=== PATIENT | male | born 1950 | race Caucasian/White ===

== ENCOUNTER → 2024-01-18 11:16 | Outpatient (REF) | payer MEDICARE, BC, SELFPAY | LOC: RAD 11:16 | PROVIDERS: ATTENDING PHYSICIAN Nurse Practitioner Family | DX: R52 Pain, unspecified (principal); L90.5 Scar conditions and fibrosis of skin; M54.40 Lumbago with sciatica, unspecified side; M54.9 Dorsalgia, unspecified | CPT/HCPCS: 76604 ==

== ENCOUNTER → 2024-06-02 08:36 | Outpatient (REF) | payer MEDICARE, BC, SELFPAY | LOC: RAD 08:36 | PROVIDERS: ATTENDING PHYSICIAN Student in an Organized Health Care Education/Training Program; FAMILY PHYSICIAN Family Medicine; REFERRING PHYSICIAN Internal Medicine Gastroenterology | DX: K31.5 Obstruction of duodenum (principal) | CPT/HCPCS: 74250 ==

== ENCOUNTER 2024-06-06 21:44 | Inpatient (IN) | payer MEDICARE, BC, SELFPAY ==
[2024-06-06 18:47] VITALS: BMI 27.2
[2024-06-06 18:50] VITALS: BP 148/86
[2024-06-06 19:00] VITALS: BP 160/92
[2024-06-06 19:04] LABS: % Basophils 0.3 % (0-2); % Immature Granulocytes 0.9 % (0-0.5); % Lymphocytes 6.1 % (20.5-51.1); % Monocytes 8.7 % (1.7-9.3); Absolute Immature Granulocytes 0.1 10^3/uL (0-0.05); Absolute Lymphocytes 0.9 10^3/uL (1.2-3.4); Absolute Monocytes 1.3 10^3/uL (0.1-0.6); Absolute Neutrophils 12.6 10^3/uL (1.4-6.5); Hematocrit 40.4 % (39.0-52.0); Hemoglobin 14.2 g/dL (13.0-18.0); Mean Corp Hgb Conc. 35.1 g/dL (33.0-37.0); Mean Corpuscular Hgb 30.6 pg (27.0-31.0); Mean Corpuscular Volume 87.1 fL (80.0-94.0); Mean Platelet Volume 10.1 fL (7.4-10.4); Nucleated Red Blood Cells % 0 % (-); Platelet Count 211 10^3/uL (130-400); Red Blood Cell Count 4.64 10^6/uL (4.70-6.10); Red Cell Dist. Width 12.6 % (11.5-14.5)
[2024-06-06 19:14] LABS: Lactic Acid 3.4 mmol/L (0.7-2.0)
[2024-06-06 19:22] LABS: Blood Urea Nitrogen 27 mg/dl (9-20); Carbon Dioxide 24 mmol/L (22-30); Chloride 95 mmol/L (98-107); Estimated Creatinine Clearance 71 ml/min; Glucose 315 mg/dl (70-99); Sodium 135 mmol/L (135-145); eGFR > 60.00
[2024-06-06 19:25] LABS: Venous Blood Gas B.E. 0.7 mmol/L (-4 to +4); Venous Blood Gas HCO3 24.3 mmol/L (22-27); Venous Blood Gas O2 Sat % 98.3 %; Venous Blood Gas pCO2 35 mmHg (35-48); Venous Blood Gas pH 7.45 (7.32-7.43); Venous Blood Gas pO2 128 mmHg (30-50)
[2024-06-06] MEDS: NSS 1000 IV ×2 (19:35→23:17)
[2024-06-06] MEDS: TYLENOL 1000 MG PO (19:40)
[2024-06-06] MEDS: ANCEF 10 IV (19:58)
--- NOTE | 2024-06-06 19:58 | ED.GENMED ---
History of Present Illness
General
Chief Complaint: Skin Problem
Time Seen by Provider: 06/06/24 19:09
History of Present Illness
History of Present Illness:
74-year-old male with history of diabetes and CVA presenting to the emergency department for concern of toe infection. Patient arrives with who reports for the past 4 days he has had swelling and redness to the right second digit. Patient
with neuropathy, history of toe infections in the past, no prior amputations. He has been following with podiatry, saw fur dressing supervisor on Sunday, who was not concerned with infection at that time. However yesterday, became increasingly red and swollen,
so primary care doctor who prescribed an oral antibiotic, however they did not fill it until today. Patient denies fever, however does note issues with temperature management since his stroke. Denies chest pain or difficulty breathing. Denies
additional acute medical complaints
Phy Exam
Physical Exam
Physical Exam:
General: Well-appearing, no clinical signs of dehydration, nontoxic and in no acute distress
HEENT: protecting airway
Neck: appears supple
CV: Tachycardic, regular rhythm, no evidence of cyanosis
Resp: No accessory muscle use, no increased work of breathing, lungs clear to auscultation bilaterally
Abd: Soft and non-distended
Extremities: Swelling and redness to the right second digit with ulceration to the plantar aspect with suspected abscess component. Streaking going up the foot and the anterior vazquez
Neuro: alert, no focal neurologic deficit
: deferred
Rectal: deferred
Psych: Normal affect
Skin: Intact
Sepsis
Sepsis Screening
Sepsis Assessment: Sepsis
Sepsis Screen
Sepsis Screen: Sepsis
Date: 06/07/24
Time: 02:59
Course
Orders/Labs/Results
Orders:
Orders
06/06/24 18:48
CT Head W/o Iv Contrast Urgent
Comment:
Reason For Exam: AMS
CR Foot - Right Min 3 Views Urgent
Comment:
Reason For Exam: toe infxn
06/06/24 18:55
Basic Metabolic Panel Urgent
CRP [C-Reactive Protein] Urgent
Complete Blood Count/With Diff Urgent
Lactic Acid Q4H
Comment: CANCEL 2nd LACTIC ACID IF 1st LACTIC ACID IS LESS THAN 2
Blood Culture Routine
NORMA Source: Blood/Venous
Specimen Description:
06/06/24 19:17
Venous Blood Gas Urgent
Blood Culture Urgent
NORMA Source: Blood/Venous
Specimen Description:
06/06/24 19:30
0.9% Sodium Chloride 1000 ml [Nss] 1,000 ml IV BOLUS
06/06/24 19:36
Acetaminophen [Tylenol] 1,000 mg PO NOW STA
06/06/24 19:37
Acetaminophen [Tylenol] 325 mg .ROUTE .STK-MED ONE
06/06/24 19:43
CeFAZolin 2 GRAM [Ancef] 2 grams in 10 ml IV NOW
06/06/24 19:53
Vancomycin [Vancocin] 2,000 mg 0.9% Sodium Chloride 500 ml [Nss] 500 ml IV NOW
06/06/24 20:02
Urinalysis Reflex To Culture Urgent
Date Specimen was Collected: 06/06/24
Time Specimen was Collected: 20:00
06/06/24 21:34
Admit/Transfer Patient As Directed
Co-Sign Provider:
Level of Care: Inpatient admission
Assign to:: Telemetry
Physician / Group: carly
Diagnosis: sepsis
Reason for Telemetry: Other
Other Reason for Telemetry: sepsis
Date to Stop Telemetry: 06/08/24
Time to Stop Telemetry: 11:00
Reason for Hospitalization: sepsis
Expected length of stay greater than two midnights?: Yes
ELOS- Estimated Length of Stay in days: 3
I certify the patient meets the requirements for IP care: Yes
PRN Pain Medication Management As Directed
May give lesser potent ordered pain med per pt: Yes
preference::
Protocol:: Medication orders for pain may be administered in a
manner that supports deferring to patient preference
when the pt is:
- Requesting an ordered lesser potent pain medication.
Least to most potent pain medications are defined
as: acetaminophen < NSAID < tramadol < opioids
(morphine, oxycodone, hydromorphone).
- Requesting a lesser dose of the same medication IF
ORDERED.
- Requesting a less intrusive route of administration
if both routes are prescribed by the provider (PO <
IV).
06/06/24 21:35
Code Status As Directed
Resuscitation Status: Full Code
06/06/24 21:39
Insulin Glargine Lantus [Lantus] 10 units Subcutaneous Insulin Syringe [Syringe-Insulin] 0 unit SC ONCE
06/06/24 22:19
0.9% Sodium Chloride 1000 ml [Nss] 1,000 ml IV 80 mls/hr
Acetaminophen [Tylenol/Feverall] 650 mg RECTAL Q4HPRN PRN
Acetaminophen [Tylenol] 650 mg PO Q4HPRN PRN
Dextrose 50%-Water [Dextrose 50% Syringe] 12.5 grams IV [id number] PRN
Glucagon [GlucaGen] 1 mg IM PRN PRN
VANCOMYCIN Pharmacy to Dose [VANCOCIN Pharmacy to Dose] 1 each Pharmacy To Prepare [Call Pharmacy To Prepare] 0 ml IV PER PROTOCOL
06/06/24 22:19
Activity As Directed
Activity Level: As Tolerated
Bedside Glucose Monitoring As Directed
Frequency: AC&HS
Additional Instructions:: Change to q6h if pt on TPN, tube feeding or not eating
Bedside Glucose Monitoring As Directed
Frequency: AC&HS
Additional Instructions:: Change to q6h if pt on TPN, tube feeding or not eating
Intake/ Output As Directed
Frequency: Per unit guidelines
Vital Signs As Directed
Frequency: Per unit guidelines
DX Deep Vein Thrombosis Video Routine
06/06/24 23:00
Gabapentin [Neurontin] 600 mg PO TID
06/06/24 23:29
Lactic Acid Q4H
Comment: CANCEL 2nd LACTIC ACID IF 1st LACTIC ACID IS LESS THAN 2
06/07/24 02:00
Piperacillin/Tazo 3.375 Gram [Zosyn] 3.375 gram in 50 ml IV Q6H
06/07/24 03:00
Lactic Acid Q4H
Comment: repeat q4 hours x 4 or until less than 2 mmol/L
06/07/24 Breakfast
2000 calorie (17 carb) Diabetic
At Your Request: Limited Participation
Complete Blood Count/No Diff IN AM
Glycohemoglobin (HgbA1c) IN AM
06/07/24 07:00
Lactic Acid Q4H
Comment: repeat q4 hours x 4 or until less than 2 mmol/L
06/07/24 07:30
Insulin Aspart Corrective Mod [Novolog Flexpen-Moderate Resistance] See Protocol SC AC
06/07/24 08:00
Amlodipine [Norvasc] 2.5 mg PO DAILY
Atorvastatin [Lipitor] 80 mg PO DAILY
Ezetimibe [Zetia] 10 mg PO DAILY
Lisinopril [Zestril] 20 mg PO BID
Pantoprazole [Protonix] 40 mg PO BID
icosapent ethyl [Vascepa] 2 grams PO BID
06/07/24 18:00
Enoxaparin Sodium [Lovenox] 40 mg SC QPM
06/07/24 22:00
Insulin Glargine Lantus [Lantus] 10 units Subcutaneous Insulin Syringe [Syringe-Insulin] 0 unit SC HS
06/08/24 06:00
Complete Blood Count/No Diff IN AM
06/08/24 11:00
DC Protocol for Telemetry ONCE
06/09/24 06:00
Complete Blood Count/No Diff IN AM
06/10/24 06:00
Complete Blood Count/No Diff IN AM
06/11/24 06:00
Complete Blood Count/No Diff IN AM
Abnormal Lab Results
06/06/24 06/06/24 06/06/24
18:55 19:17 20:02
WBC 15.0 H 10^3/uL
(4.8-10.8)
RBC 4.64 L 10^6/uL
(4.70-6.10)
Abs Immat Gran (auto) 0.1 H 10^3/uL
(0-0.05)
Absolute Neuts (auto) 12.6 H 10^3/uL
(1.4-6.5)
Absolute Lymphs (auto) 0.9 L 10^3/uL
(1.2-3.4)
Absolute Monos (auto) 1.3 H 10^3/uL
(0.1-0.6)
Immature Gran % 0.9 H %
(0-0.5)
Neutrophils % 84.0 H %
(42.2-75.2)
Lymphocytes % 6.1 L %
(20.5-51.1)
VBG pH 7.45 H
(7.32-7.43)
VBG pO2 128 H mmHg
(30-50)
Chloride 95 L mmol/L
(98-107)
BUN 27 H mg/dl
(9-20)
Glucose 315 H mg/dl
(70-99)
Lactic Acid 3.4 H mmol/L
(0.7-2.0)
C-Reactive Protein 176.50 H mg/L
(0.0-10.00)
Urine Ketones 1+ A
(Negative)
Urine Glucose 3+ A
(Negative)
06/06/24 18:55
06/06/24 18:55
Vital Signs
Initial and Last Documented VS:
Initial Vital Signs
Temp Pulse Resp Pulse Ox
98.4 F 126 25 97
06/06/24 18:41 06/06/24 18:41 06/06/24 18:41 06/06/24 18:41
Last Documented Vital Signs
Temp Pulse Resp BP Pulse Ox
100.1 F 101 21 139/98 96
06/06/24 23:38 06/06/24 23:38 06/06/24 23:38 06/06/24 23:38 06/06/24 23:38
MDM/Problems Addressed
MDM/Problems Addressed:
74-year-old male with history of diabetes and CVA presenting for concern of right toe infection. Vital signs on arrival significant for fever and tachycardia.
On exam, patient is in no acute distress, however vital signs are concerning for SIRS with suspected source of infection right second digit. For this reason, concern for sepsis. Plan for laboratory analysis including lactic acid, blood cultures.
Will obtain x-ray imaging of the foot.
20:00 - Patient with leukocytosis and lactic acid of 3.2. Blood pressure remained stable and lactate is less than 4, without concern for severe sepsis or septic shock. Will continue fluids as clinically indicated. Broad-spectrum antibiotics
ordered.
20:50 - X-ray of the foot without obvious osteomyelitis. No gas collection. is concerned that patient was slightly slower to respond than usual. No focal neurologic deficits on exam. Patient did have a CT brain, within normal limits. Plan
for admission for continued antibiotics and podiatry consultation, likely surgical management.
*Critical Care Note
Total Time (30-74mins, 75-104mins- exclusive of procedures): Not Applicable
ED Attending Note
-
Portions of this chart may have been created with voice recognition software.� Occasional wrong word or��sound alike� substitutions may have occurred due to the inherent limitations of voice recognition software.
Discharge Plan
Departure
Patient Disposition: Admit
Date of Disposition: 06/06/24
Time of Disposition: 20:57
Presentation/result/management discussed w/ accepting MD/DO: Hospitalist
Discharge Problem:
Diabetic ulcer of toe, Sepsis
Interventions
Interventions:
*Risk Screen - Suicide Last Done: 06/06/24 22:47
*General Assessment Last Done: 06/06/24 18:49
*Neglect/Abuse Screening Last Done: 06/06/24 18:49
ED- Fall Risk Assessment Last Done: 06/06/24 22:02
*ED COVID-19 Vaccine History Last Done: 06/06/24 18:49
*Nursing Disposition Last Done: 06/06/24 22:02
ED-Skin Assessment Last Done: 06/06/24 19:30
Discharge Date and Time
Discharge Date/Time: 06/06/24 22:16
[2024-06-06 20:01] VITALS: BP 164/95
[2024-06-06] MEDS: VANCOCIN 540 MG IV (20:10)
[2024-06-06 20:14] LABS: Urine Albumin Negative (Neg - Trace); Urine Bilirubin Negative (Negative); Urine Character Clear (Clear); Urine Color Yellow; Urine Glucose 3+ (Negative); Urine Ketone 1+ (Negative); Urine Leukocyte Negative (Negative); Urine Nitrite Negative (Negative); Urine Occult Blood Negative (Negative); Urine Specific Gravity 1.015 (<1.030); Urine Urobilinogen Negative (Neg - 1+)
--- NOTE | 2024-06-06 20:59 | HPS.HSE ---
Addendum entered and electronically signed by French Jimenez DO 06/06/24 21:52:
Patient seen and examined independently. Agree with findings and plan as set forth by SHEEBA Gandara.
Patient is a 74y M with PMH significant for DM-II, hypertension and prior CVA who presents c/o pain, swelling and redness in the R 2nd toe. Patient states that symptoms have been progressive over the past 3 days or so. Recently had similar
infection / process in the R 3rd toe which was treated by his Forgeman Helper in [place] (he cannot recall the name). Patient has Charcot foot and hammertoe deformities. He feels fatigued but no subjective fevers, chills, nausea. He was seen by
Podiatry and started on Levaquin (first dose was today).
Ass:
Diabetic Foot Infection R 2nd Toe
Sepsis secondary to the above
DM-II
Charcot Foot
Benign Hypertension
GERD
Chronic Posterior Torso Fluoroscopy Burn Injury(?)
Plan:
Admit for further evaluation and treatment.
IV abx with Vanco / Zosyn for now.
Podiatry evaluation.
X-rays in the ED today show no evidence of bony involvement. Severe arthropathy c/w Charcot foot.
? MRI for further evaluation if no prompt response to abx.
Supportive care.
Hold PO DM medications and cover with basal : bolus insulin regimen / SSI for now.
Continue other home medications.
Original Note:
Family Physician
-
Family Physician: Evelyn Briones
Chief Complaint
-
infection
History of Present Illness
74-year-old male with history of diabetes , CVA, type 2 DM presented to us with right second toe infection. its been red and swollen for past three days. progressively got worse. more swelling on his calf and redness to his knees. started on
Levaquin today morning.did not check the fever at home. denied DONAHUE ,dizzy or syncopal episode. denied chest pain, sob. denied abdominal pain,n,v,d. denied dysuria or hematuria.patient was evaluated by Podiatry on Sunday.
upon arrival he was sepsis. received iv vanco and Zosyn. admitting for further management.
Medical History
Past Medical History
Past Medical History: Reports Other
Additional Past Medical History:
HTN
BPH
HTn
DM
HLD
GERD
CVA
Past Surgical History: Reports Other
Additional Past Surgical History:
appendectomy
shoulder surgery
sinus surgery
tumor resection
Social History
Tobacco: Non-smoker
Alcohol: None
Drug: None
Personal:
Living: With Family
Family History
Family History: Not pertinent
Allergies / Home Medications
Allergies reflects when Allergies were last updated in [employer].
Home Medications with original date entered in [employer]
Allergy/Medication List:
Allergies
Allergy/AdvReac Type Severity Reaction Status Date / Time
clindamycin Allergy Severe Rash Verified 06/06/24 19:42
tamsulosin Allergy Unknown Unknown Unverified 07/28/19 07:49
ibuprofen Allergy Unknown Verified 07/28/19 07:49
[From DayQuil Sinus
Pressure/Pain]
perfume Allergy Unknown Verified 07/28/19 07:29
pseudoephedrine Allergy Unknown Verified 07/28/19 07:49
[From DayQuil Sinus
Pressure/Pain]
Home Medications
amlodipine 2.5 mg tablet 2.5 mg PO DAILY 06/06/24
aspirin 325 mg PO DAILY 06/06/24
pnersge-xmdxudhbvuskj-xhfuybkk 250 mg-250 mg-65 mg tablet (Excedrin Migraine) 1 tab PO Q6 PRN headaches 06/06/24
atorvastatin 80 mg tablet 80 mg PO DAILY 06/06/24
benazepril 20 mg tablet 20 mg PO BID 06/06/24
ezetimibe 10 mg tablet 10 mg PO DAILY 06/06/24
gabapentin 600 mg tablet 600 mg PO TID 06/06/24
glimepiride 2 mg tablet 2 mg PO DAILY 06/06/24
hydrochlorothiazide 25 mg tablet 25 mg PO DAILY 06/06/24
hydrocodone-acetaminophen 1 tab PO Q8 PRN pain 06/06/24
icosapent ethyl 1 gram capsule (Vascepa) 2 g PO BID 06/06/24
levofloxacin 500 mg tablet 500 mg PO DAILY 06/06/24
metformin 500 mg tablet 500 mg PO BID 06/06/24
pantoprazole 40 mg tablet,delayed release 40 mg PO BID 06/06/24
Review of Systems
-
Constitutional: Reports No Symptoms
EENT: Reports No Symptoms
Respiratory: Reports No Symptoms
Cardiac: Reports No Symptoms
Abdomen/GI: Reports No Symptoms
: Reports No Symptoms
Musculoskeletal: Reports No Symptoms
Skin: Reports Other (second toe infection)
Neurological: Reports No Symptoms
Endocrine: Reports No Symptoms
Hematologic/Lymphatic: Reports No Symptoms
Psych: Reports No Symptoms
Physical Exam
Vital Signs
Vital Signs
Temp Pulse Resp BP Pulse Ox
102.9 F H 108 27 164/95 97
06/06/24 19:00 06/06/24 20:15 06/06/24 20:15 06/06/24 20:01 06/06/24 20:15
Physical Exam
General: Well Developed, Well Nourished and No Apparent Distress
HEENT: NormoCephalic, Moist mucous membranes and Atraumatic
Respiratory: Clear
Cardiac: S1/S2 and Regular Rhythm; No Murmur or Rub
GI: Soft, Non Tender, Non Distended and Normal Bowel Sounds; No Organomegaly
Rectal: Deferred by Provider
Musculoskeletal: No Clubbing, No Cyanosis and No Edema
Skin: Rash and Other (second toe red, swollen, LE red and swollen)
Neuro: AO x 3 and Nonfocal/grossly intact
Psych: Calm
Laboratory Results
-
06/06/24 18:55
06/06/24 18:55
Laboratory Results
Lactic Acid 3.4 mmol/L (0.7-2.0) H 06/06/24 18:55
Total Bilirubin Cancelled 06/06/24 18:55
AST Cancelled 06/06/24 18:55
ALT Cancelled 06/06/24 18:55
Alkaline Phosphatase Cancelled 06/06/24 18:55
Data Reviewed
-
Diagnostic Radiology: Report Reviewed by me
CT Scan: Report Reviewed by me
Lab Data: Labs Reviewed by me
Impression/Plan
-
#right 2nd toe infection
-severe sepsis wbc 15.0,CRP 176.50,tachy, temp of 102.9,elevated lactic
-foot x ray with No osseous destructive changes to confirm acute osteomyelitis.Severe osteoarthrosis of the midfoot with greatest involvement of the naviculocuneiform and second through fourth tarsometatarsal joints, again most suspicious for a
neuropathic arthrosis. No acute fracture or dislocation. Soft tissue swelling about the foot, nonspecific.
-blood culture sent from ER
-Zosyn and vanco in ER
-Tylenol prn for fever
-ctm
# Essential hypertension
-Blood pressure stable
-Norvasc, Benazepril continue with hold parameters
# Hyperlipidemia
-Statin, Zetia
-Possible continued
# GERD
-PPI continued
#Type 2 diabetes with hyperglycemia/neuropathy
-Gabapentin continued
-Holding glimepiride and metformin
-Lantus 10 units at bedtime
-sliding scale
# DVT prophylaxis
-Lovenox subcu
# CODE STATUS
-Full code
[2024-06-06 21:00] VITALS: BP 141/77
[2024-06-06 22:00] VITALS: BP 132/76
[2024-06-06 22:52] LABS: Glucose - Point of Care 231 mg/dl (70-99)
[2024-06-06] MEDS: LANTUS 0.1 UNITS SC (22:53)
[2024-06-06] MEDS: NEURONTIN 600 MG PO (23:17)
[2024-06-06 23:38] VITALS: BP 139/98; BMI 27.2
[2024-06-07] VITALS (7 sets, daily range): BP systolic 103–170; BP diastolic 63–96
--- NOTE | 2024-06-07 00:55 | PTCARENOTE ---
Received patient from ED via stretcher with spouse at bedside. Patient admitted for sepsis. Telemetry order> SR-ST on monitor, T100.1, HR101, RR20, BP139/98, pox 96% room air. BGS 231- Lantus 10 units administered.
Skin assessment> B/L Charcot. Rt foot- second toe, red and warm to touch. Second toe DFU. Scabbed w/ small red wound bed to the tip of toe, above w/ an intact blister. Third toe-distal w/ small intact scab. Both cleansed w/ NSS, covered w/ bandage.
Bilateral dorsal pedal pulse weak to palpate, confirmed w/ doppler. Protective foams applied to heels.
PMH and medications confirmed by this RN and patient. Plan of care discussed. Patient oriented to room. Call mckeon within reach.
[2024-06-07] MEDS: ZOSYN 50 IV ×4 (01:47→20:45)
[2024-06-07] MEDS: TYLENOL 650 MG PO ×4 (03:15→20:42)
[2024-06-07 03:51] LABS: Hematocrit 37.5 % (39.0-52.0); Hemoglobin 13.1 g/dL (13.0-18.0); Mean Corp Hgb Conc. 34.9 g/dL (33.0-37.0); Mean Corpuscular Hgb 30.8 pg (27.0-31.0); Mean Platelet Volume 10.2 fL (7.4-10.4); Platelet Count 183 10^3/uL (130-400); Red Blood Cell Count 4.26 10^6/uL (4.70-6.10); Red Cell Dist. Width 12.8 % (11.5-14.5); White Blood Cell Count 14.9 10^3/uL (4.8-10.8)
[2024-06-07 04:06] LABS: Lactic Acid 2.6 mmol/L (0.7-2.0)
[2024-06-07 04:16] LABS: Blood Urea Nitrogen 23 mg/dl (9-20); Calcium 9.1 mg/dl (8.4-10.2); Carbon Dioxide 25 mmol/L (22-30); Chloride 100 mmol/L (98-107); Estimated Creatinine Clearance 71 ml/min; Glucose 198 mg/dl (70-99); Potassium 4.1 mmol/L (3.5-5.1); Sodium 142 mmol/L (135-145); eGFR > 60.00
[2024-06-07 07:37] LABS: Lactic Acid 1.9 mmol/L (0.7-2.0)
[2024-06-07 07:42] LABS: Vancomycin Trough 9.5 ug/ml (5-20)
--- NOTE | 2024-06-07 07:56 | PHA.VAN.IN ---
Assessment
- Assessment
Renal Function: Appears similar to baseline
Maximum Temperature: 101.8 (06/07/24 0553)
Concomitant Antimicrobials: pip/tazo
AUC Dosing Plan
- Dosing Variables
Dosing Weight (kg): 81
Dosing CrCl (ml/min): 71
Vd coefficient (L/kg): 0.7
- Empiric Dosing
Initial / Loading Dose: 2000 mg 06/06 ~1999
Maintenance Regimen: 750 mg q12h - to start this AM
Estimated AUC (mcg*h/mL): 431
Estimated Peak (mcg*h/mL): 24.8
Estimated Trough (mcg/ml): 12.4
Estimated Half Life (H): 10.8
random level ordered for this AM was 9.5 ~ 11 hours after the 2000 mg LD
- Monitoring
No levels ordered at this time: consider levels after Sun tanner dose ( 4th Maint)
Pharmacokinetics Vancomycin I
- -
Patient Age: 74
Patient Sex: Male
Vancomycin Day #: 1
Indication: Skin And Soft Tissue
Requesting Provider: Tony
Pertinent Antimicrobial Allergies:
clindamycin, ibuprofen,tamsulosin, pseudoephedrine
Height / Weight:
Height 5 ft 8 in
Actual Weight 81.102 kg
Pertinent Past Medical History: DM II
- Vital Signs / Lab Results
Temp Pulse Resp BP Pulse Ox
97.4 F 109 19 161/94 96
06/07/24 07:00 06/07/24 03:18 06/07/24 03:18 06/07/24 03:18 06/07/24 03:18
Lab Results - Hematology
06/06/24 06/07/24
18:55 03:42
WBC 15.0 H 14.9 H
Lab Results - Chemistry
06/06/24 06/07/24
18:55 03:42
BUN 27 H 23 H
Creatinine 0.9 0.9
Estimated Creat Clear 71 71
Albumin Cancelled
06/06/24 06/06/24 06/07/24
18:55 23:29 03:42
Lactic Acid 3.4 H 2.0 2.6 H
06/07/24
07:07
Lactic Acid 1.9
Lab Results - Urine
06/06/24
20:02
Urine Nitrite (Reflex) Negative
Leukocyte Esterase Rfl Negative
[2024-06-07 08:11] LABS: Glucose - Point of Care 175 mg/dl (70-99)
[2024-06-07] MEDS: NEURONTIN 600 MG PO ×3 (08:37→22:33)
[2024-06-07] MEDS: LIPITOR 80 MG PO (08:38)
[2024-06-07] MEDS: ZESTRIL 20 MG PO ×2 (08:38→20:45)
[2024-06-07] MEDS: NOVOLOG FLEXPEN-MODERATE RESISTANCE 1 UNITS SC (08:38)
[2024-06-07] MEDS: NORVASC 2.5 MG PO (08:38)
[2024-06-07] MEDS: ZETIA 10 MG PO (08:39)
[2024-06-07] MEDS: PROTONIX 40 MG PO ×2 (08:39→20:45)
--- NOTE | 2024-06-07 08:45 | W.PN.HOSP.TC ---
Addendum entered and electronically signed by Jose Dowd MD 06/07/24 11:26:
arrived, told nursing pt was in pain (he denied pain to me earlier) and requests a medication for pain. Will order
Original Note:
Today's Communication/Plan
-
Podiatry consult
continue IV abx
MRI
Assessment / Plan
Assessment / Plan
#right 2nd toe infection
-severe sepsis wbc 15.0-->14.9,
CRP 176.50,tachy, temp of 102.9,elevated lactic 2.0-->2.6-->1.9
-foot x ray with No osseous destructive changes to confirm acute osteomyelitis.Severe osteoarthrosis of the midfoot with greatest involvement of the naviculocuneiform and second through fourth tarsometatarsal joints, again most suspicious for a
neuropathic arthrosis. No acute fracture or dislocation. Soft tissue swelling about the foot, nonspecific.
-blood culture sent from ER
-Zosyn and vanco in ER
-Tylenol prn for fever
-Podiatry consult pending (Dr. Araiza, nonsurgical)
will order MRI of foot
# Essential hypertension
-Blood pressure stable
-Norvasc, Benazepril continue with hold parameters
# Hyperlipidemia
-Statin, Zetia
-Possible continued
# GERD
-PPI continued
#Type 2 diabetes (NIDDM for 10 yrs, as per pt)with hyperglycemia/neuropathy
-Gabapentin continued
-Holding glimepiride and metformin
-Lantus 10 units at bedtime
-sliding scale
a1c pending
# DVT prophylaxis
-Lovenox subcu
# CODE STATUS
-Full code
Anticipated Discharge: > 48 hours
Subjective/Interval History
-
Date of Service: June 07, 2024
Awake, alert
Objective Data
-
Labs:
Laboratory Results
06/07/24
03:42
WBC 14.9 H
Hgb 13.1
Hct 37.5 L
Plt Count 183
Sodium 142
Potassium 4.1
Chloride 100
Carbon Dioxide 25
BUN 23 H
Creatinine 0.9
Glucose 198 H
Calcium 9.1
Vital Signs:
Vital Signs
Temp Pulse Resp BP Pulse Ox
101.2 F H 115 18 170/96 95
06/07/24 07:45 06/07/24 08:38 06/07/24 07:45 06/07/24 08:38 06/07/24 07:45
I&O
06/06/24 06/07/24 06/08/24
06:59 06:59 06:59
Intake Total 640 / 640
Output Total 400 / 400
Balance 240 / 240
Review of Systems
-
History Source: Patient and Coordinated Provider
Constitutional: Reports Fever (97.4-102.9)
EENT: Reports No Symptoms Reported
Respiratory: Reports No Symptoms
Cardiac: Reports No Symptoms
Abdomen/GI: Reports No Symptoms
Genitourinary: Reports No Symptoms
Musculoskeletal: Reports Other (charcot foot, hypesthesia for years)
Neuro: Reports No Symptoms
Physical Exam
-
General: Well Developed, Well Nourished and No Apparent Distress
HEENT: Normocephalic, Atraumatic and Moist Mucous Membranes
Respiratory: Clear to Auscultation; Negative Wheezes, Rales or Rhonchi
Cardiac: Regular Rhythm and S1/S2
GI: Soft, Nontender and Nondistended
Genito-urinary: No Costovertebral Tender
Musculoskeletal: Other (rt foot 2nd toe with chronic ischemic changes, odiferous)
Neuro: Awake, Alert, Oriented and Other (mild pill rolling tremor, mild cogwheel changes)
[2024-06-07] MEDS: VANCOCIN 150 IV ×2 (08:50→17:37)
[2024-06-07 10:01] LABS: Glycohemoglobin (HgbA1c) 8.2 % (4.0-5.6)
[2024-06-07 11:32] LABS: Glucose - Point of Care 302 mg/dl (70-99)
[2024-06-07] MEDS: NOVOLOG FLEXPEN-MODERATE RESISTANCE 7 UNITS SC (11:50)
--- NOTE | 2024-06-07 12:50 | CM ---
CM met with pt's at bedside. Pt unavailable.
Prior to admission, pt ind with ambulation using no AD and ADL's + Mobile Product Manager.
Confirmed PCP is Evelyn Briones and pharmacy is [facility] in [place].
Pt has no HC or SNF history. Per pt will decline if recc'd.
Anticipate dc home no needs VS home with VN if pt agreeable.
CM/SW to follow and assist.
[2024-06-07] MEDS: PERCOCET 5/325 1 TABLET PO ×2 (13:12→20:43)
[2024-06-07] MEDS: NSS 1000 IV (15:18)
[2024-06-07 17:01] LABS: Glucose - Point of Care 228 mg/dl (70-99)
[2024-06-07] MEDS: LOVENOX 40 MG SC (17:36)
[2024-06-07] MEDS: NOVOLOG FLEXPEN-MODERATE RESISTANCE 3 UNITS SC (17:36)
[2024-06-07 22:17] LABS: Glucose - Point of Care 218 mg/dl (70-99)
[2024-06-07] MEDS: LANTUS 0.1 UNITS SC (22:30)
[2024-06-08] VITALS (7 sets, daily range): BP systolic 124–159; BP diastolic 67–96
[2024-06-08] MEDS: ZOSYN 50 IV ×4 (01:20→19:59)
[2024-06-08] MEDS: TYLENOL 650 MG PO ×3 (02:33→22:05)
--- NOTE | 2024-06-08 03:15 | PTCARENOTE ---
This RN noticed scant hematuria while patient urinating. Patient denies dysuria. H/H and Plt stable. Lovenox ordered. Patient voided 275ml urine and bladder scanned 245ml. Patient continues to be febrile w/ rigors. Tylenol administered x2 for
temperature. NSR on monitor, HR 90s- 100s, BP fluctuates. Percocet administered earlier in shift for 7/10 whole body aches/pains. House WINDER OPERATOR made aware. No new orders at this time.
[2024-06-08 04:58] LABS: Glucose - Point of Care 287 mg/dl (70-99)
[2024-06-08] MEDS: NSS 1000 IV ×2 (05:13→20:01)
[2024-06-08] MEDS: VANCOCIN 150 IV ×2 (05:13→17:28)
--- NOTE | 2024-06-08 07:06 | W.PN.UPDATE ---
Update Note
Progress Note Update
RN notifed NEUROLOGY TECHNICIAN patient had scant amount of blood in urine. patient is on Lovenox daily, CBC in AM. will check UA. stable vs.
[2024-06-08 07:29] LABS: Glucose - Point of Care 192 mg/dl (70-99)
[2024-06-08 07:37] LABS: Lactic Acid 1.1 mmol/L (0.7-2.0)
[2024-06-08 07:55] LABS: Urine Albumin 1+ (Neg - Trace); Urine Bilirubin Negative (Negative); Urine Character Clear (Clear); Urine Color Yellow; Urine Glucose 3+ (Negative); Urine Ketone 1+ (Negative); Urine Leukocyte Negative (Negative); Urine Nitrite Negative (Negative); Urine Occult Blood 1+ (Negative); Urine Urobilinogen Negative (Neg - 1+)
[2024-06-08] MEDS: NOVOLOG FLEXPEN-MODERATE RESISTANCE 1 UNITS SC (07:58)
[2024-06-08] MEDS: PROTONIX 40 MG PO ×2 (07:58→19:59)
[2024-06-08] MEDS: LIPITOR 80 MG PO (07:58)
[2024-06-08] MEDS: NEURONTIN 600 MG PO ×3 (07:59→22:05)
[2024-06-08] MEDS: ZETIA 10 MG PO (07:59)
[2024-06-08] MEDS: NORVASC 2.5 MG PO (08:00)
[2024-06-08] MEDS: ZESTRIL 20 MG PO ×2 (08:00→19:59)
[2024-06-08 08:10] LABS: Erythrocyte Sed Rate 54 mm/hour (0-20)
[2024-06-08 08:18] LABS: Urine Bacteria Few (Negative); Urine White Cell 0-2 /HPF (0-5)
[2024-06-08 08:33] LABS: % Basophils 0.3 % (0-2); % Eosinophils 0.2 % (0-6); % Immature Granulocytes 0.7 % (0-0.5); % Lymphocytes 11.1 % (20.5-51.1); % Monocytes 8.7 % (1.7-9.3); Absolute Lymphocytes 0.7 10^3/uL (1.2-3.4); Absolute Monocytes 0.5 10^3/uL (0.1-0.6); Absolute Neutrophils 4.6 10^3/uL (1.4-6.5); Hematocrit 33.1 % (39.0-52.0); Hemoglobin 11.6 g/dL (13.0-18.0); Mean Corpuscular Hgb 30.8 pg (27.0-31.0); Mean Corpuscular Volume 87.8 fL (80.0-94.0); Mean Platelet Volume 10.3 fL (7.4-10.4); Nucleated Red Blood Cells % 0 % (-); Platelet Count 144 10^3/uL (130-400); Red Blood Cell Count 3.77 10^6/uL (4.70-6.10); Red Cell Dist. Width 12.8 % (11.5-14.5); White Blood Cell Count 5.9 10^3/uL (4.8-10.8)
[2024-06-08 09:02] LABS: Blood Urea Nitrogen 25 mg/dl (9-20); Calcium 8.9 mg/dl (8.4-10.2); Carbon Dioxide 26 mmol/L (22-30); Chloride 99 mmol/L (98-107); Estimated Creatinine Clearance 64 ml/min; Glucose 185 mg/dl (70-99); Potassium 3.8 mmol/L (3.5-5.1); Sodium 136 mmol/L (135-145); eGFR > 60.00
--- NOTE | 2024-06-08 09:15 | W.PN.HOSP.TC ---
Addendum entered and electronically signed by Jose Dowd MD 06/08/24 09:38:
ESR [id number]
Original Note:
Today's Communication/Plan
-
await input from Podiatry
Assessment / Plan
Assessment / Plan
#right 2nd toe infection
-severe sepsis wbc 15.0-->14.9-->5.9,
CRP 176.50,tachy, elevated lactic 2.0-->2.6-->1.9-->1.1
-foot x ray with No osseous destructive changes to confirm acute osteomyelitis.Severe osteoarthrosis of the midfoot with greatest involvement of the naviculocuneiform and second through fourth tarsometatarsal joints, again most suspicious for a
neuropathic arthrosis. No acute fracture or dislocation. Soft tissue swelling about the foot, nonspecific.
-blood culture sent from ER
-remains on Zosyn and vanco
-Tylenol prn for fever
-Podiatry consult pending (changed from Dr. Araiza, nonsurgical to Dr. Estrella, due to need to make decision on surgical intervention)
MRI of foot: 1. Bone marrow edema in the second distal phalanx for which differential considerations include reactive edema versus the early changes of osteomyelitis given the proximity to the soft tissue wound at the distal aspect of the second
toe. No evidence for T1 hypointense marrow replacement.
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
# Essential hypertension
-Blood pressure stable
-Norvasc, Benazepril continue with hold parameters
# Hyperlipidemia
-Statin, Zetia
-Possible continued
# GERD
-PPI continued
#Type 2 diabetes (NIDDM for 10 yrs, as per pt)with hyperglycemia/neuropathy
based on a1c, suboptimal control
-Gabapentin continued
-Holding glimepiride and metformin
-Lantus 10 units at bedtime
-sliding scale
a1c 8.2%
# DVT prophylaxis
-Lovenox subcu
# CODE STATUS
-Full code
Anticipated Discharge: > 48 hours
Subjective/Interval History
-
Date of Service: June 08, 2024
Even though has significant neuropathy, still with pain in toe area
Objective Data
-
Labs:
Laboratory Results
06/08/24
07:08
WBC 5.9
Hgb 11.6 L
Hct 33.1 L
Plt Count 144 D
Sodium 136
Potassium 3.8
Chloride 99
Carbon Dioxide 26
BUN 25 H
Creatinine 1.0
Glucose 185 H
Calcium 8.9
Vital Signs:
Vital Signs
Temp Pulse Resp BP Pulse Ox
98.5 F 90 16 144/86 97
06/08/24 07:30 06/08/24 08:00 06/08/24 07:30 06/08/24 08:00 06/08/24 07:30
I&O
06/07/24 06/08/24 06/09/24
06:59 06:59 06:59
Intake Total 640 / 640 3840 / 3840
Output Total 400 / 400 775 / 775
Balance 240 / 240 3065 / 3065
Review of Systems
-
History Source: Patient and Coordinated Provider
Constitutional: Reports Fever (98.4-->100.7)
EENT: Reports No Symptoms Reported
Respiratory: Reports No Symptoms
Cardiac: Reports No Symptoms
Abdomen/GI: Reports No Symptoms
Genitourinary: Reports No Symptoms
Musculoskeletal: Reports Other (charcot foot, hypesthesia for years)
Neuro: Reports No Symptoms
Physical Exam
-
General: Well Developed, Well Nourished and No Apparent Distress
HEENT: Normocephalic, Atraumatic and Moist Mucous Membranes
Respiratory: Clear to Auscultation; Negative Wheezes, Rales or Rhonchi
Cardiac: Regular Rhythm and S1/S2
GI: Soft, Nontender and Nondistended
Genito-urinary: No Costovertebral Tender
Musculoskeletal: Other (rt foot 2nd toe with chronic ischemic changes, anaerobic odor has decreased)
Neuro: Awake, Alert, Oriented and Other (mild pill rolling tremor, mild cogwheel changes)
--- NOTE | 2024-06-08 10:05 | PHA.VAN.FU ---
Vancomycin Assessment / Plan
- Assessment
Renal Function: Stable
WBC's are: WNL
In the past 24 hrs, patient has been: Febrile (100.7 (06/08 04:40))
Concomitant Antimicrobials: piperacillin/tazo
- Dosing Plan
Continue: vanc 750 mg bid
- Monitoring Plan
Peak Level: 06/08 2030 - after 4th maint dose
Trough Level: 06/09 530
- Follow Up
Pharmacy will continue to follow.
Vancomycin Follow UP
- -
Patient Age: 74
Patient Sex: Male
Vancomycin Day #: 2
Indication: Skin And Soft Tissue
Requesting Provider: Tony
Pertinent Antimicrobial Allergies:
clindamycin, ibuprofen,tamsulosin, pseudoephedrine
Height / Weight:
Height 5 ft 8 in
Actual Weight 81.102 kg
Pertinent Past Medical History: DM II
- Vital Signs / Lab Results
Temp Pulse Resp BP Pulse Ox
98.5 F 90 16 144/86 97
06/08/24 07:30 06/08/24 08:00 06/08/24 07:30 06/08/24 08:00 06/08/24 07:30
Lab Results - Hematology
06/06/24 06/07/24 06/08/24
18:55 03:42 07:08
WBC 15.0 H 14.9 H 5.9
Lab Results - Chemistry
06/06/24 06/07/24 06/08/24
18:55 03:42 07:08
BUN 27 H 23 H 25 H
Creatinine 0.9 0.9 1.0
Estimated Creat Clear 71 71 64
Albumin Cancelled
06/06/24 06/06/24 06/07/24
18:55 23:29 03:42
Lactic Acid 3.4 H 2.0 2.6 H
06/07/24 06/08/24
07:07 07:08
Lactic Acid 1.9 1.1
Lab Results - Urine
06/08/24
07:39
Urine Nitrite Negative
Ur Leukocyte Esterase Negative
Urine WBC 0-2
Urine Bacteria Few A
Microbiology Results
06/06/24 23:29 MRSA Screen - Final
Nose No Methicillin Resistant Staphylococcus aureus isolated.
06/06/24 18:55 Blood Culture - Preliminary
Blood/Venous Positive culture in progress
Gram Stain - Preliminary
06/06/24 19:17 Blood Culture - Preliminary
Blood/Venous Staph aureus MRSA
Gram Stain - Preliminary
Therapeutic Drug Monitoring
Vancomycin Trough 9.5 ug/ml (5-20) 06/07/24 07:07
--- NOTE | 2024-06-08 10:48 | W.PN.UPDATE ---
Update Note
Progress Note Update
Full H&P to follow with podiatry
Right second toe with erythema and infection with baseline Charcot arthropathy established with Vielka Nixon at [facility]
Examination shows whole digit swelling of the second toe with erythema and eschar on the plantar aspect of the underlying toe pad. There is no palpable fluid collection.
Likely acute exacerbation of his Charcot arthropathy including sepsis of his second toe with questionable MRI findings for osteomyelitis.
Recommend continue antibiotics per infectious disease and offloading with surgical shoe. Localized wound care.
Will discuss further for continued clinical observation and response to antibiotics versus possible operative invention with consideration of localized debridement versus amputation
[2024-06-08 11:32] LABS: Glucose - Point of Care 290 mg/dl (70-99)
[2024-06-08] MEDS: PERCOCET 5/325 1 TABLET PO (11:33)
[2024-06-08] MEDS: NOVOLOG FLEXPEN-MODERATE RESISTANCE 5 UNITS SC ×2 (11:34→17:27)
[2024-06-08 17:24] LABS: Glucose - Point of Care 297 mg/dl (70-99)
[2024-06-08] MEDS: LOVENOX 40 MG SC (17:27)
[2024-06-08 20:39] LABS: Vancomycin Peak 14.7 ug/ml (18-26)
[2024-06-08 21:58] LABS: Glucose - Point of Care 353 mg/dl (70-99)
[2024-06-08] MEDS: LANTUS 0.1 UNITS SC (22:05)
[2024-06-09] VITALS (7 sets, daily range): BP systolic 128–155; BP diastolic 76–87
[2024-06-09] MEDS: ZOSYN 50 IV ×4 (01:37→20:38)
[2024-06-09] MEDS: VANCOCIN 150 IV (05:59)
[2024-06-09 07:32] LABS: Glucose - Point of Care 210 mg/dl (70-99)
[2024-06-09] MEDS: NOVOLOG FLEXPEN-MODERATE RESISTANCE 3 UNITS SC (07:48)
[2024-06-09] MEDS: ZESTRIL 20 MG PO ×2 (07:49→21:44)
[2024-06-09] MEDS: ZETIA 10 MG PO (07:49)
[2024-06-09] MEDS: PROTONIX 40 MG PO ×2 (07:49→20:38)
[2024-06-09] MEDS: LIPITOR 80 MG PO (07:49)
[2024-06-09] MEDS: NORVASC 2.5 MG PO (07:49)
[2024-06-09] MEDS: NEURONTIN 600 MG PO ×3 (07:49→20:38)
[2024-06-09 08:00] LABS: Hematocrit 34.6 % (39.0-52.0); Hemoglobin 12.1 g/dL (13.0-18.0); Mean Corpuscular Hgb 31.3 pg (27.0-31.0); Mean Corpuscular Volume 89.6 fL (80.0-94.0); Mean Platelet Volume 10.6 fL (7.4-10.4); Platelet Count 143 10^3/uL (130-400); Red Blood Cell Count 3.86 10^6/uL (4.70-6.10); Red Cell Dist. Width 12.6 % (11.5-14.5); White Blood Cell Count 6.3 10^3/uL (4.8-10.8)
[2024-06-09 08:08] LABS: Vancomycin Trough 20.5 ug/ml (5-20)
--- NOTE | 2024-06-09 08:23 | PHA.VAN.FU ---
Vancomycin Assessment / Plan
- Assessment
Renal Function: SCR Decreasing
WBC's are: WNL
In the past 24 hrs, patient has been: Febrile
Concomitant Antimicrobials: piperacillin/tazobactam
- Assessment - Therapeutic Drug Monitoring
Peak drawn correctly, about 1.8H after end of infusion of 4th maintenance dose and is subtherapeutic at 14.7.
Vancomycin trough was not drawn correctly and was drawn ~20 mins after end of 0600 infusion. Level artificially high as was drawn while dose was still distributing.
- Dosing Plan
Adjust Regimen to: dosing by level
Give 500mg x1 now as booster dose given low peak last night and MRSA bacteremia
Give 1250mg x1 at 1800
Will change to dose by level so can follow more closely
- Monitoring Plan
Random Level: 06/10 0600
- Follow Up
Pharmacy will continue to follow.
Vancomycin Follow UP
- -
Patient Age: 74
Patient Sex: Male
Vancomycin Day #: 3
Indication: Skin And Soft Tissue
Requesting Provider: Tony
Pertinent Antimicrobial Allergies:
clindamycin - rash
Height / Weight:
Height 5 ft 8 in
Actual Weight 81.102 kg
Pertinent Past Medical History: DM II
- Vital Signs / Lab Results
Temp Pulse Resp BP Pulse Ox
99.2 F 79 18 149/85 96
06/09/24 03:22 06/09/24 03:22 06/09/24 03:22 06/09/24 03:22 06/09/24 03:22
Lab Results - Hematology
06/06/24 06/07/24 06/08/24
18:55 03:42 07:08
WBC 15.0 H 14.9 H 5.9
06/09/24
07:21
WBC 6.3
Lab Results - Chemistry
0906/07/24 06/08/24
18:55 03:42 07:08
BUN 27 H 23 H 25 H
Creatinine 0.9 0.9 1.0
Estimated Creat Clear 71 71 64
Albumin Cancelled
06/06/24 06/06/24 06/07/24
18:55 23:29 03:42
Lactic Acid 3.4 H 2.0 2.6 H
06/07/24 06/08/24
07:07 07:08
Lactic Acid 1.9 1.1
Microbiology Results
06/06/24 19:17 Blood Culture - Preliminary
Blood/Venous Staph aureus MRSA
Gram Stain - Preliminary
06/06/24 18:55 Blood Culture - Preliminary
Blood/Venous Staph aureus MRSA
Gram Stain - Preliminary
06/06/24 23:29 MRSA Screen - Final
Nose No Methicillin Resistant Staphylococcus aureus isolated.
Therapeutic Drug Monitoring
Vancomycin Peak 14.7 ug/ml (18-26) L 06/08/24 20:17
Vancomycin Trough 20.5 ug/ml (5-20) H* 06/09/24 07:21
[2024-06-09 08:38] LABS: Blood Urea Nitrogen 18 mg/dl (9-20); Calcium 8.8 mg/dl (8.4-10.2); Carbon Dioxide 22 mmol/L (22-30); Chloride 101 mmol/L (98-107); Estimated Creatinine Clearance 80 ml/min; Glucose 226 mg/dl (70-99); Potassium 3.8 mmol/L (3.5-5.1); Sodium 136 mmol/L (135-145); eGFR > 60.00
[2024-06-09] MEDS: VANCOCIN HCL 500 MG 100 IV (10:47)
[2024-06-09] MEDS: NSS 1000 IV (10:47)
[2024-06-09 11:42] LABS: Glucose - Point of Care 222 mg/dl (70-99)
[2024-06-09] MEDS: NOVOLOG FLEXPEN-MODERATE RESISTANCE SC (11:57)
--- NOTE | 2024-06-09 12:04 | CON.SURG ---
Surgical Consultation
-
History of Present Illness
74-year-old male with history of diabetes , CVA, type 2 DM presenting with right second toe infection. The toe been red and swollen for about 1 week at this point. The toe has gotten progressively worse and the redness/swelling has extended. Patient
has known Charcot neuroathropathy of the right midfoot. Patient is known to Dr. Nixon of [facility] who recently did flexor tenotomies of right 3rd/4th toes. Patient was admitted to [facility] for sepsis and fever due to his
right foot infection. He has received vancomycin and zosyn. Denied DONAHUE ,dizzy or syncopal episode. denied chest pain, sob. denied abdominal pain,n,v,d. denied dysuria or hematuria.
Medical History
Past Medical History
Past Medical History: Reports Other
Additional Past Medical History:
HTN
BPH
HTn
DM
HLD
GERD
CVA
Past Surgical History: Reports Other
Additional Past Surgical History:
appendectomy
shoulder surgery
sinus surgery
tumor resection
Social History
Tobacco: Non-smoker
Alcohol: None
Drug: None
Personal:
Living: With Family
Family History
Family History: Not pertinent
Allergies / Home Medications
Allergies reflects when Allergies were last updated in [facility].
Home Medications with original date entered in [facility]
Allergy/Medication List:
Allergies
Allergy/AdvReac Type Severity Reaction Status Date / Time
clindamycin Allergy Severe Rash Verified 06/06/24 19:42
tamsulosin Allergy Unknown Unknown Unverified 07/28/19 07:49
ibuprofen Allergy Unknown Verified 07/28/19 07:49
[From DayQuil Sinus
Pressure/Pain]
perfume Allergy Unknown Verified 07/28/19 07:29
pseudoephedrine Allergy Unknown Verified 07/28/19 07:49
[From DayQuil Sinus
Pressure/Pain]
Home Medications
amlodipine 2.5 mg tablet 2.5 mg PO DAILY 06/06/24
aspirin 325 mg PO DAILY 06/06/24
kkwbkeo-qqpevtasbkuwr-lwhzhugh 250 mg-250 mg-65 mg tablet (Excedrin Migraine) 1 tab PO Q6 PRN headaches 06/06/24
atorvastatin 80 mg tablet 80 mg PO DAILY 06/06/24
benazepril 20 mg tablet 20 mg PO BID 06/06/24
ezetimibe 10 mg tablet 10 mg PO DAILY 06/06/24
gabapentin 600 mg tablet 600 mg PO TID 06/06/24
glimepiride 2 mg tablet 2 mg PO DAILY 06/06/24
hydrochlorothiazide 25 mg tablet 25 mg PO DAILY 06/06/24
hydrocodone-acetaminophen 1 tab PO Q8 PRN pain 06/06/24
icosapent ethyl 1 gram capsule (Vascepa) 2 g PO BID 06/06/24
levofloxacin 500 mg tablet 500 mg PO DAILY 06/06/24
metformin 500 mg tablet 500 mg PO BID 06/06/24
pantoprazole 40 mg tablet,delayed release 40 mg PO BID 06/06/24
Review of Systems
-
Constitutional: Reports No Symptoms
EENT: Reports No Symptoms
Respiratory: Reports No Symptoms
Cardiac: Reports No Symptoms
Abdomen/GI: Reports No Symptoms
: Reports No Symptoms
Musculoskeletal: Reports No Symptoms
Skin: Reports Other (second toe infection)
Neurological: Reports No Symptoms
Endocrine: Reports No Symptoms
Hematologic/Lymphatic: Reports No Symptoms
Psych: Reports No Symptoms
Physical Exam
Vital Signs
Vital Signs
Temp Pulse Resp BP Pulse Ox
102.9 F H 108 27 164/95 97
06/06/24 19:00 06/06/24 20:15 06/06/24 20:15 06/06/24 20:01 06/06/24 20:15
Physical Exam
General: Well Developed, Well Nourished and No Apparent Distress
HEENT: NormoCephalic, Moist mucous membranes and Atraumatic
Respiratory: Clear
Cardiac: S1/S2 and Regular Rhythm; No Murmur or Rub
GI: Soft, Non Tender, Non Distended and Normal Bowel Sounds; No Organomegaly
Rectal: Deferred by Provider
Musculoskeletal: No Clubbing, No Cyanosis and No Edema
Skin: Rash and Other (second toe red, swollen, LE red and swollen)
Neuro: AO x 3 and Nonfocal/grossly intact
Psych: Calm
Right lower extremity exam:
-DP/PT pulses are 2/4 and capillary refill < 3 seconds
-Right 2nd toe with distal wound and surrounding erythema extending proximally to the midfoot
-Midfoot collapse of right foot due to charcot
-Edema to right forefoot noted
Laboratory Results
-
06/06/24 18:55
06/06/24 18:55
Laboratory Results
Lactic Acid 3.4 mmol/L (0.7-2.0) H 06/06/24 18:55
Total Bilirubin Cancelled 06/06/24 18:55
AST Cancelled 06/06/24 18:55
ALT Cancelled 06/06/24 18:55
Alkaline Phosphatase Cancelled 06/06/24 18:55
Data Reviewed
-
Diagnostic Radiology: Report Reviewed by me
CT Scan: Report Reviewed by me
Lab Data: Labs Reviewed by me
Impression/Plan
74 year old male diabetic with right charcot deformity and right 2nd toe infection and MRSA bacteremia. MRI findings concerning for osteomyelitis of the 2nd toe. Discussed treatment options including right partial second toe amputation with incision
and drainage as needed versus proceeding with antibiotics. Given findings concerning for osteomyelitis and MRSA bacteremia we will proceed with right partial second toe amputation.
� Patient seen and evaluated at bedside
� Please make patient n.p.o., will proceed with right foot surgery on 06/09/2024
� Continue IV antibiotics, appreciate infectious disease recommendations
--- NOTE | 2024-06-09 12:39 | W.PN.HOSP.TC ---
Today's Communication/Plan
-
Monitor vital signs see plan
Follow fever curve
Continue antibiotics per infectious disease
Plan for OR today
check new bcx
Assessment / Plan
Assessment / Plan
Sepsis secondary to right second toe osteomyelitis and MRSA bacteremia
Check new sets of blood culture
ID evaluation
Spoke with Podiatry, plan for OR 06/09
-foot x ray with No osseous destructive changes to confirm acute osteomyelitis.Severe osteoarthrosis of the midfoot with greatest involvement of the naviculocuneiform and second through fourth tarsometatarsal joints, again most suspicious for a
neuropathic arthrosis. No acute fracture or dislocation. Soft tissue swelling about the foot, nonspecific.
-blood culture from admission growing 2 bottles MRSA, check new sets of blood culture 06/09
-remains on Zosyn and vanco
-Tylenol prn for fever
-Podiatry following
MRI of foot: 1. Bone marrow edema in the second distal phalanx for which differential considerations include reactive edema versus the early changes of osteomyelitis given the proximity to the soft tissue wound at the distal aspect of the second
toe. No evidence for T1 hypointense marrow replacement.
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
# Essential hypertension
-Blood pressure stable
-Norvasc, Benazepril continue with hold parameters
# Hyperlipidemia
-Statin, Zetia
-Possible continued
# GERD
-PPI continued
#Type 2 diabetes (NIDDM for 10 yrs, as per pt)with hyperglycemia/neuropathy
based on a1c, suboptimal control
-Gabapentin continued
-Holding glimepiride and metformin
-Lantus 10 units at bedtime
-sliding scale
a1c 8.2%
# DVT prophylaxis
-Lovenox subcu
# CODE STATUS
-Full code
General: Well Developed, Well Nourished and No Apparent Distress
HEENT: Normocephalic, Atraumatic and Moist Mucous Membranes
Respiratory: Clear to Auscultation; Negative Wheezes, Rales or Rhonchi
Cardiac: Regular Rhythm and S1/S2
GI: Soft, Nontender and Nondistended
Genito-urinary: No Costovertebral Tender
Musculoskeletal: Other (rt foot 2nd toe with chronic ischemic changes, anaerobic odor has decreased)
Neuro: Awake, Alert, Oriented
I spent a total of 52 minutes with the patient or on the floor. More than 50% of this time involved counseling and coordination of care.
Anticipated Discharge: > 48 hours
Subjective/Interval History
-
Date of Service: June 09, 2024
Continues to spike fever
Objective Data
-
Labs:
Laboratory Results
06/09/24
07:21
WBC 6.3
Hgb 12.1 L
Hct 34.6 L
Plt Count 143
Sodium 136
Potassium 3.8
Chloride 101
Carbon Dioxide 22
BUN 18
Creatinine 0.8
Glucose 226 H
Calcium 8.8
Vital Signs:
Vital Signs
Temp Pulse Resp BP Pulse Ox
99.4 F 83 16 151/86 97
06/09/24 11:50 06/09/24 11:50 06/09/24 11:50 06/09/24 11:50 06/09/24 11:50
I&O
06/08/24 06/09/24 06/10/24
06:59 06:59 06:59
Intake Total 3840 / 3840 3710 / 3710
Output Total 775 / 775 1500 / 1500
Balance 3065 / 3065 2210 / 2210
--- NOTE | 2024-06-09 13:45 | CM ---
Reviewed the chart notes. Per notes, for right partial second toe amputation today. CM continues to be available to patient/family and is monitoring medical plan for needs at discharge.
Plan: Discharge plans will depend on the patient's progress.
[2024-06-09] MEDS: NSS IV (13:53)
--- NOTE | 2024-06-09 14:06 | CON.ID ---
Addendum entered and electronically signed by Yola Davis MD 06/09/24 17:35:
I personally performed a history and physical exam of the patient and discussed management with the resident. I reviewed the resident's documented note and agree with the documented findings and plan of care HPI/CC with the following
additions/exceptions:
HPI:
Mr Oden is a 74 year old male with known charcot foot, hammertoe deformities, DM2 who presented here for right 2nd toe redness, pain, swelling for about 3 days. Additionally there is an eschar on the plantar toe pad. No fevers or chills, but is
fatigued. Of note this is the second episode of redness, swelling of this toe recently. His last episode was treated by his [employer] [facility] at [facility] podiatry. He was seen by podiatry again for this relapse and was prescribed levaquin with
first dose taken on day of arrival.
Past Medical History
HTN
BPH
HLD
GERD
CVA
Past Surgical History:
appendectomy
shoulder surgery
sinus surgery
tumor resection
Social History
Tobacco: Non-smoker
Alcohol: None
Drug: None
Personal:
Living: With Family
Family History
Family History: Not pertinent
Allergies:
notable for rash with clindamycin
Home medications: reviewed
ROS: 10 point ROS negative except as listed in the HPI
Physical Exam
Vital Signs
Vital Signs
Temp Pulse Resp BP Pulse Ox
102.9 F H 108 27 164/95 97
06/06/24 19:00 06/06/24 20:15 06/06/24 20:15 06/06/24 20:01 06/06/24 20:15
Physical Exam
General: No Apparent Distress
Respiratory: Clear to asucultation BL, no rales, wheezes or ronchi
Cardiac: S1/S2 and Regular Rhythm; No Murmur or Rub
GI: Soft, Non Tender, Non Distended and Normal Bowel Sounds
Musculoskeletal: No Clubbing, No Cyanosis
Skin: right second toe: red, swollen, eschar on the toe pad, no palpable fluctuant collection; right LE also erythema and swelling
Psych: Calm
Labs:
reviewed and notable for
WBC 15 on arrival now 6.3
hgb 12.1
a1c 8.2
ESR 54
CRP 176
Na 135
Cr 0.8
Lactic acid 3.4 on arrival most recently 1.1
UA no pyuria
vancomycin peak 14.7, vanc trough 20.5
Blood Culture Preliminary 06/09/24-904
Positive for Staph aureus MRSA.
Performed by PCR methodology.
Isolation Precautions Required
CRITICAL VALUE called to and read back verification by
[id number] on 06/07/24 at 1602 by [employer]. COPY PRINTED to
printer #[id number].
Organism 1 Staph aureus MRSA
1. Staph aureus MRSA
M.I.C. RX
--------- ---
Amoxicillin/Potas. Clavulanate >4/2 R
Ampicillin >8 R
Clindamycin <=0.5 S
Gentamicin <=4 S
Erythromycin <=0.5 S
Levofloxacin <=1 S
Oxacillin >2 R
Tetracycline <=4 S
Trimethoprim/Sulfamethoxazole <=0.5/9.5 S
Vancomycin 1 S
06/07 MRI R foot: Bone marrow edema in the second distal phalanx... ddx: reactive edema versus the early changes of osteomyelitis
06/06 Xray R foot: No osseous destructive changes to confirm acute osteomyelitis. neuropathic arthrosis
06/06 CT head: no acute changes
A&P
Diabetic Foot Infection of the Right second toe
Severe Sepsis
MRSA Bacteremia
DM2 - poorly controlled
Charcot Foot
Reported allergy to clindamycin - rash
- repeat blood cultures x2 in progress for clearance of MRSA bacteremia
- if persistent bacteremia, low threshold for TTE. Initial source is the diabetic foot infection
- no evidence of infection of other joints at this time
- if taken to the OR please send margin of amputation for culture and pathology
- continue vancomycin, NORMA 1
- will recommend at least two weeks of IV antibiotics for MRSA bacteremia
- when bacteremia cleared at least 48 hours can consider midline vs picc line
- note orthopedics rec for medical management at the moment; im in agreement
- follow clinically
AW
Original Note:
Consultation
-
Date/Time Consultation Requested: 06/09/24, 8:44am
Date/Time Consultation Performed: 06/09/24, 2:00pm
Requesting Provider: Avinash Valentino MD
Performing Provider: Mariama Rivera for Yola Davis MD
Reason for Consultation: Sepsis secondary to diabetic foot
Chief Complaint / Past History
Chief Complaint
Fever, chills, redness, hotness and swollen right second toe.
History of Present Illness
74 yo M with a PMHx significant for type II Diabetes, HTN, Hyperlipidemia, GERD, CVA and Charcot's foot presented to the hospital for fatigue, subjective fever and chills that is associated with worsening redness, swelling and hotness of the right
second toe X 2 weeks. His right third and fourth toes were bad before this for few months and his cathode builder has been working on those 2 toes for which he underwent a procedure-his tendons were released and his toes improved. He does not recall
being on antibiotics for his right third and fourth toes or the right second toe at home. He has seen his cathode builder in the outpatient and he was planned to get the procedure done on June 17 for his right second toe. Meanwhile his wound
significantly worsened over 3 days before admission and on day of admission was accompanied by fever chills and fatigue.
His right second toe pain was dull, aching and initially about 2/10, nonradiating but gradually worsened about 8/10. He has tingling and mild numbness in both his feet. States that his legs scratch his legs multiple times, but does not recall
scratching his right foot or toe. No prior trauma, or surgery to the right second toe.
Most recent HbA1c was about 7.8 - 2-3 months ago at his primary care office.
Compliant with his diabetic regimen at home.
Upon admission to the hospital on 06/06/2024 he was diagnosed to be in severe sepsis with elevated ESR, CRP and lactic acid levels, tachycardia, tachypnea, and fever, was started on vancomycin and Zosyn, day 4 as of today. Blood cultures positive
for MRSA-MRSA bacteremia. X-ray of the foot has no evidence of osteomyelitis, MRI of the foot done subsequently has evidence for osteomyelitis. Podiatry and orthopedics on board and plan is to amputate the right second toe up to DIP.
Past History
Additional Past Medical History:
HTN, BPH, Non insulin dependant type 2 DM, HLD, CVA, GERD
Additional Past Surgical History:
Appendectomy, arthroscopy of the shoulder, sinus surgery, tumor resection.
Allergy History:
clindamycin Allergy (Verified 06/06/24 21:47)
Rash
ibuprofen [From DayQuil Sinus Pressure/Pain] Allergy (Verified 06/06/24 21:47)
pt. states had stroke day took it
perfume Allergy (Verified 06/06/24 21:47)
sinus problems
pseudoephedrine [From DayQuil Sinus Pressure/Pain] Allergy (Verified 06/06/24 21:47)
pt. states had stroke day took it
tamsulosin Allergy (Verified 06/06/24 21:47)
pt. states severe drop in BP
Medications Reviewed: Yes
Current Antibiotics:
Vancomycin-1.5 g-day 4.
Zosyn-4 g-day 4.
Social History
Tobacco: Non-Smoker
Alcohol: None
Drug: None
Personal:
Living: With Family
Employment: Retired
Family History
Family History: Not Pertinent
Review of Systems
Review of Systems
General: Fever
HEENT: Negative Lymphadenopathy, Headache or Pharyngitis
Cardiovascular: Negative Chest Pain, Edema or Palpitations
Respiratory: Negative Dyspnea, Cough or Sputum Production
Gasteroenterology: Negative Weight Loss, Nausea or Vomiting
Genital / Urological: Negative Dysuria or Flank Pain
Endocrine: Negative Weight Change
Musculoskeletal: Other (Swollen right foot.)
Skin / Hair / Nails: Lesions (On right second toe.); Negative Rash
Neurological: Negative Headache or Dizziness
Psychological: Negative Sleep Changes or Substance Abuse
Vital Signs
Temp Pulse Resp BP Pulse Ox
99.4 F 83 16 151/86 97
06/09/24 11:50 06/09/24 11:50 06/09/24 11:50 06/09/24 11:50 06/09/24 11:50
Physical Exam
Physical Exam
Constitutional: No Acute Distress, Well Developed, Comfortable and Non-toxic
Eyes: Pupils Equal
Pharynx: Negative Erythema
Cardiovascular: Regular Rate and S1/S2; Negative Murmur, Rub or Gallop
Pulmonary: Clear; Negative Wheezes, Rales or Rhonchi
Gastrointestinal: Soft, Non Tender, Non Distended and Normal Bowel Sounds
Genito-Urinary: Negative Sanchez
Extremities: Edema (Right lower extremity, 1+ pitting edema in the right foot. Erythematous and edematous second toe with a 1x1 cm ulcer noted on the plantar surface.- center filled with eschar.)
Skin: Warm
Lab / Diagnostic Study Results
06/09/24 07:21
06/09/24 07:21
Abs Immat Gran (auto) 0.0 10^3/uL (0-0.05) 06/08/24 07:08
Absolute Neuts (auto) 4.6 10^3/uL (1.4-6.5) 06/08/24 07:08
Absolute Lymphs (auto) 0.7 10^3/uL (1.2-3.4) L 06/08/24 07:08
Absolute Monos (auto) 0.5 10^3/uL (0.1-0.6) 06/08/24 07:08
Absolute Basos (auto) 0.0 10^3/uL (0-0.2) 06/08/24 07:08
Immature Gran % 0.7 % (0-0.5) H 06/08/24 07:08
Neutrophils % 79.0 % (42.2-75.2) H 06/08/24 07:08
Lymphocytes % 11.1 % (20.5-51.1) L 06/08/24 07:08
Monocytes % 8.7 % (1.7-9.3) 06/08/24 07:08
Eosinophils % 0.2 % (0-6) 06/08/24 07:08
Basophils % 0.3 % (0-2) 06/08/24 07:08
ESR 54 mm/hour (0-20) H 06/08/24 07:08
Lactic Acid 1.1 mmol/L (0.7-2.0) 06/08/24 07:08
C-Reactive Protein 176.50 mg/L (0.0-10.00) H 06/06/24 18:55
Urine WBC 0-2 /HPF (0-5) 06/08/24 07:39
Microbiology Results
Micro:
06/09/24 11:13 Blood Culture - Pending
Blood/Venous
06/09/24 09:35 Blood Culture - Pending
Blood/Venous
06/06/24 18:55 Blood Culture - Preliminary
Blood/Venous Staph aureus MRSA
Gram Stain - Preliminary
06/06/24 19:17 Blood Culture - Preliminary
Blood/Venous Staph aureus MRSA
Gram Stain - Preliminary
06/06/24 23:29 MRSA Screen - Final
Nose No Methicillin Resistant Staphylococcus aureus isolated.
Imaging -
06/06/24 - Foot X-ray -
No osseous destructive changes to confirm acute osteomyelitis.
Severe osteoarthrosis of the midfoot with greatest involvement of the naviculocuneiform and second through fourth tarsometatarsal joints, again most suspicious for a neuropathic arthrosis. No acute fracture or dislocation. Soft tissue swelling about
the foot, nonspecific.
06/07/24 - Lower extremity MRI -
1. Bone marrow edema in the second distal phalanx for which differential considerations include reactive edema versus the early changes of osteomyelitis given the proximity to the soft tissue wound at the distal aspect of the second toe. No evidence
for T1 hypointense marrow replacement.
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
Assessment / Plan
Severe sepsis -
secondary to diabetic foot ulcer -
Elevated CRP, ESR, Lactic acid levels with tachycardia, tachypnea and fever upon admission.
Blood cultures upon admission positive for MRSA 06/06/2024.
X-ray negative for osteomyelitis, MRI suspicious for osteomyelitis.
On vancomycin and Zosyn-day 4
Resolved lactic acid levels, tachycardia, tachypnea.
Last fever recorded-06/08/2024-102.2. Repeat blood cultures ordered today-06/09/2024.
Continue vancomycin and Zosyn for now.
Will change course of antibiotics based on review of pending blood cultures.
Suspected osteomyelitis-
Secondary to hammer toes and diabetic foot ulcer.
Podiatry and orthopedics on board, planned for amputation at 4 PM on 06/09/2024.
Day 4 of vancomycin and Zosyn with last fever < 24 hrs ago.
Recommend biopsy of the margins of amputated toe.
Based on the biopsy results, will make decision on course of antibiotics.
--- NOTE | 2024-06-09 15:14 | PN.CDI ---
CDI
- -
CDI:
Physician Documentation Request
Admit Date: 06/06/24 21:44
Dear Doctor Chicho,
Clinical Indicators:
Patient admitted with sepsis.
06/06 EMS report, 'Pt is awake, aao x3 and slow to respond at times...Pt still having moments of staring off and slow to respond or not responding but awake...Nurse also made aware of pt's periods of altered mental status.'
06/06 ED report, ' is concerned that patient was slightly slower to respond than usual'
06/[address] ordered for change in mental status; 'No acute intracranial abnormality.'
Please clarify the most likely etiology of the altered mental status.
Acute Metabolic Encephalopathy
Acute Delirium
Other, please specify
Use of terms such as suspected, likely, concern for, or probable (associated with a specific diagnosis that is being evaluated, monitored, or treated as if it exists) are acceptable and can be coded in the inpatient setting, when documented at the
time of discharge.
Thank you,
Rabia Brown RN BSN
CDI Specialist
available via tiger text
Please use your independent medical judgment in providing your response.
--- NOTE | 2024-06-09 15:24 | PTCARENOTE ---
Report given to MAYITO Johnson in OR. patient with 100.3 temp. OR made aware.
--- NOTE | 2024-06-09 16:50 | W.PN.UPDATE ---
Update Note
Progress Note Update
s/p right partial 2nd toe amputation with pressumed surgical cure
-will need at least 2 weeks of ABx, appreciate ID recs
-NWB RLE, PT/OT consult, heel touch for transfers
-Home dressing changes 2x per week
-Okay to D/C from Podiatry/ortho standpoint
[2024-06-09 17:05] LABS: Glucose - Point of Care 199 mg/dl (70-99)
--- NOTE | 2024-06-09 17:30 | PTCARENOTE ---
Report received from PACU. VSS. Patient c/o of 5/10 pain. Percocet given per order. Call mckeon within reach. updated over phone.
[2024-06-09] MEDS: LOVENOX 40 MG SC (17:55)
[2024-06-09] MEDS: VANCOCIN 275 MG IV (17:55)
[2024-06-09] MEDS: PERCOCET 5/325 1 TABLET PO ×2 (17:55→22:04)
[2024-06-09] MEDS: NOVOLOG FLEXPEN-MODERATE RESISTANCE 1 UNITS SC (17:55)
[2024-06-09] MEDS: LANTUS 0.1 UNITS SC (21:55)
[2024-06-09 21:57] LABS: Glucose - Point of Care 295 mg/dl (70-99)
[2024-06-10] VITALS (8 sets, daily range): BP systolic 134–148; BP diastolic 72–94; PULSE 72–84
[2024-06-10] MEDS: ZOSYN 50 IV ×4 (02:40→20:46)
[2024-06-10] MEDS: NSS 1000 IV ×2 (02:41→13:15)
[2024-06-10] MEDS: PERCOCET 5/325 1 TABLET PO ×3 (06:10→17:28)
[2024-06-10 07:27] LABS: Glucose - Point of Care 210 mg/dl (70-99)
--- NOTE | 2024-06-10 07:35 | W.PN.ID1 ---
Addendum entered and electronically signed by Yola Davis MD 06/10/24 17:08:
I saw and evaluated the patient. I reviewed the resident�s note and agree with findings and plan as documented in the resident�s note with the following additions/corrections:
SOAP
S:
s/p right partial 2nd toe amputation with presumed surgical cure per podiatry
Tmax 100.3 overnight preop, no kel fevers
O:
WBC 5.7
hgb 12.1
plt 144
L shift resolved
cr 1.0
wound culture: no wbc or organisms
anaerobic culture: pending
06/09 blood cultures no growth to date
A&P
Diabetic Foot Infection of the Right second toe
MRSA Bacteremia
DM2 - poorly controlled
Charcot Foot
Reported allergy to clindamycin - rash
- follow up OR cultures - clarifying what part of the toe they were obtained from - margin vs other
- repeat blood cultures x2 in progress for clearance of MRSA bacteremia - in progress
- when 06/09 blood cultures no growth at [address] picc
- if persistent bacteremia, low threshold for TTE. Initial source is the diabetic foot infection
- no evidence of infection of other joints at this time
- continue vancomycin
- continue zosyn for now
- will recommend at least two weeks of IV vancomycin for MRSA bacteremia
- will likely add Augmentin for GNR/anaerobic coverage to complete two weeks
- follow clinically
AW
Original Note:
Date of Service
Date of Service: June 10, 2024
Today's Communication
continue vancomycin and zosyn, awaiting cultures growth for 48 hrs.
start oral augmentin from tomorrow.
Assessment / Plan
Severe sepsis -
secondary to diabetic foot ulcer -
Elevated CRP, ESR, Lactic acid levels with tachycardia, tachypnea and fever upon admission.
Blood cultures upon admission positive for MRSA 06/06/2024.
X-ray negative for osteomyelitis, MRI suspicious for osteomyelitis.
On vancomycin and Zosyn-day 5
Resolved lactic acid levels, tachycardia, tachypnea.
Last fever recorded-06/08/2024-102.2. Repeat blood cultures negative - cleared of bacteremia.
Continue vancomycin and Zosyn for now.If 48 hr blood culture continue to remain negative,switch to augmentin from tomorrow. Based on the biopsy results IV vancomycin course is to be determined.
Suspected osteomyelitis-
Secondary to hammer toes and diabetic foot ulcer.
Podiatry and orthopedics on board, partially amputated right second toe
Day 5 of vancomycin and Zosyn with last fever > 24 hrs ago.
Biopsy of the margins of amputated toe pending.
Based on the biopsy results, will make decision on course of antibiotics.
Chief Complaint
-: Clinical Sepsis and Bacteremia
Subjective / Review of Systems
Review of Systems: No Fever, No Chills, No Headache, No Stiff Neck, No Cough, No Chest Pain, No Palpitations and No Skin Rash
Vital Signs / Physical Exam
Vital Signs
Vital Signs
Temp Pulse Resp BP Pulse Ox
97.7 F 73 18 138/81 96
06/10/24 03:06 06/10/24 03:06 06/10/24 03:06 06/10/24 03:06 06/10/24 03:06
Physical Exam
Constitutional: No Acute Distress and Comfortable
Cardiovascular: Regular Rate and S1/S2; Negative Murmur, Rub or Gallop
Gastrointestinal: Soft, Non Tender, Non Distended and Normal Bowel Sounds
Extremities: Edema (1 + pitting edema of the right foot, b/l charcot feet, hammer toes, and post surgery changes - partially amputated right second toe. clean dressing.)
Skin: Warm
Psychological: Calm
Objective Data
Lab Data
ESR 54 mm/hour (0-20) H 06/08/24 07:08
Estimated Creat Clear 80 ml/min 06/09/24 07:21
Lactic Acid 1.1 mmol/L (0.7-2.0) 06/08/24 07:08
Total Bilirubin Cancelled 06/06/24 18:55
AST Cancelled 06/06/24 18:55
ALT Cancelled 06/06/24 18:55
Alkaline Phosphatase Cancelled 06/06/24 18:55
C-Reactive Protein 176.50 mg/L (0.0-10.00) H 06/06/24 18:55
Most recent labs reviewed.
Chest X-Ray: Image Reviewed and Report Reviewed
MRI: Image Reviewed and Report Reviewed
Microbiology: Report Reviewed
Micro Results:
06/09/24 16:30 Wound Culture - Pending
Toe Gram Stain - Preliminary
06/09/24 16:30 Anaerobic Culture - Pending
Toe
06/09/24 11:13 Blood Culture - Pending
Blood/Venous
06/09/24 09:35 Blood Culture - Pending
Blood/Venous
06/06/24 18:55 Blood Culture - Preliminary
Blood/Venous Staph aureus MRSA
Gram Stain - Preliminary
06/06/24 19:17 Blood Culture - Preliminary
Blood/Venous Staph aureus MRSA
Gram Stain - Preliminary
06/06/24 23:29 MRSA Screen - Final
Nose No Methicillin Resistant Staphylococcus aureus isolated.
Imaging -
06/06/24 - Foot X-ray -
No osseous destructive changes to confirm acute osteomyelitis.
Severe osteoarthrosis of the midfoot with greatest involvement of the naviculocuneiform and second through fourth tarsometatarsal joints, again most suspicious for a neuropathic arthrosis. No acute fracture or dislocation. Soft tissue swelling about
the foot, nonspecific.
06/07/24 - Lower extremity MRI -
1. Bone marrow edema in the second distal phalanx for which differential considerations include reactive edema versus the early changes of osteomyelitis given the proximity to the soft tissue wound at the distal aspect of the second toe. No evidence
for T1 hypointense marrow replacement.
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
[2024-06-10] MEDS: NOVOLOG FLEXPEN-MODERATE RESISTANCE 3 UNITS SC ×2 (07:52→13:13)
[2024-06-10] MEDS: ZETIA 10 MG PO (07:53)
[2024-06-10] MEDS: NEURONTIN 600 MG PO ×3 (07:53→20:46)
[2024-06-10] MEDS: LIPITOR 80 MG PO (07:53)
[2024-06-10] MEDS: PROTONIX 40 MG PO ×2 (07:53→20:46)
[2024-06-10] MEDS: ZESTRIL 20 MG PO ×2 (07:53→20:48)
[2024-06-10] MEDS: NORVASC 2.5 MG PO (07:58)
[2024-06-10 08:00] LABS: % Basophils 0.5 % (0-2); % Eosinophils 1.9 % (0-6); % Immature Granulocytes 0.5 % (0-0.5); % Lymphocytes 16.3 % (20.5-51.1); % Monocytes 11.4 % (1.7-9.3); % Neutrophils 69.4 % (42.2-75.2); Absolute Eosinophils 0.1 10^3/uL (0-0.7); Absolute Lymphocytes 0.9 10^3/uL (1.2-3.4); Absolute Monocytes 0.7 10^3/uL (0.1-0.6); Hematocrit 34.1 % (39.0-52.0); Hemoglobin 12.1 g/dL (13.0-18.0); Mean Corp Hgb Conc. 35.5 g/dL (33.0-37.0); Mean Corpuscular Hgb 31.4 pg (27.0-31.0); Mean Corpuscular Volume 88.6 fL (80.0-94.0); Mean Platelet Volume 10.4 fL (7.4-10.4); Nucleated Red Blood Cells % 0 % (-); Platelet Count 144 10^3/uL (130-400); Red Blood Cell Count 3.85 10^6/uL (4.70-6.10); Red Cell Dist. Width 12.5 % (11.5-14.5); White Blood Cell Count 5.7 10^3/uL (4.8-10.8)
[2024-06-10 08:18] LABS: Vancomycin Random 10.7 ug/ml
--- NOTE | 2024-06-10 08:39 | PHA.VAN.FU ---
Vancomycin Assessment / Plan
- Assessment - Therapeutic Drug Monitoring
Random Level: 10.7 - drawn ~13.5H after previous dose of 1250mg
- Dosing Plan
Adjust Regimen to: Vanc 1250mg Q12H - first dose now then 1800
- Monitoring Plan
No level(s) ordered at this time: consider levels following 925 PM dose to assess new regimen
- Follow Up
Pharmacy will continue to follow.
Vancomycin Follow UP
- -
Patient Age: 74
Patient Sex: Male
Vancomycin Day #: 4
Indication: Skin And Soft Tissue
Requesting Provider: Dr. Jimenez / Susan
Pertinent Antimicrobial Allergies:
clindamycin - rash
Height / Weight:
Height 5 ft 8 in
Actual Weight 81.102 kg
Pertinent Past Medical History: DM II
- Vital Signs / Lab Results
Temp Pulse Resp BP Pulse Ox
97.7 F 81 18 142/72 96
06/10/24 03:06 06/10/24 07:58 06/10/24 03:06 06/10/24 07:58 06/10/24 03:06
Lab Results - Hematology
06/08/24 06/09/24 06/10/24
07:08 07:21 07:29
WBC 5.9 6.3 5.7
Lab Results - Chemistry
06/08/24 06/09/24
07:08 07:21
BUN 25 H 18
Creatinine 1.0 0.8
Estimated Creat Clear 64 80
06/08/24
07:08
Lactic Acid 1.1
Microbiology Results
06/06/24 18:55 Blood Culture - Final
Blood/Venous Staph aureus MRSA
Gram Stain - Final
06/09/24 16:30 Gram Stain - Preliminary
Toe
06/06/24 19:17 Blood Culture - Preliminary
Blood/Venous Staph aureus MRSA
Gram Stain - Preliminary
06/06/24 23:29 MRSA Screen - Final
Nose No Methicillin Resistant Staphylococcus aureus isolated.
Therapeutic Drug Monitoring
Vancomycin Peak 14.7 ug/ml (18-26) L 06/08/24 20:17
Vancomycin Trough 20.5 ug/ml (5-20) H* 06/09/24 07:21
Random Vancomycin 10.7 ug/ml 06/10/24 07:29
[2024-06-10 08:45] LABS: Blood Urea Nitrogen 18 mg/dl (9-20); Carbon Dioxide 20 mmol/L (22-30); Chloride 104 mmol/L (98-107); Estimated Creatinine Clearance 64 ml/min; Glucose 212 mg/dl (70-99); Potassium 3.7 mmol/L (3.5-5.1); Sodium 138 mmol/L (135-145); eGFR > 60.00
[2024-06-10 11:38] LABS: Glucose - Point of Care 221 mg/dl (70-99)
--- NOTE | 2024-06-10 11:51 | W.PN.HOSP.TC ---
Addendum entered and electronically signed by Avinash Valentino MD 06/10/24 16:02:
Restart metformin and hold Lantus.
Original Note:
Today's Communication/Plan
-
Monitor vital signs see plan
Follow cultures
Continue antibiotics per infectious disease
PT/OT to see today
Discussed with spouse at bedside
Pain control
Assessment / Plan
Assessment / Plan
Sepsis secondary to right second toe osteomyelitis and MRSA bacteremia
ID following
Spoke with Podiatry, s/p right partial 2nd toe amputation 06/09; with presumed surgical cure. follow cx
cw abx per ID
-NWB RLE, PT/OT consult, heel touch for transfers
-Home dressing changes 2x per week
-foot x ray with No osseous destructive changes to confirm acute osteomyelitis.Severe osteoarthrosis of the midfoot with greatest involvement of the naviculocuneiform and second through fourth tarsometatarsal joints, again most suspicious for a
neuropathic arthrosis. No acute fracture or dislocation. Soft tissue swelling about the foot, nonspecific.
-blood culture from admission growing 2 bottles MRSA, new sets of blood culture 06/09 NGTD
-remains on Zosyn and vanco
-Tylenol prn for fever
-Podiatry following
MRI of foot: 1. Bone marrow edema in the second distal phalanx for which differential considerations include reactive edema versus the early changes of osteomyelitis given the proximity to the soft tissue wound at the distal aspect of the second
toe. No evidence for T1 hypointense marrow replacement.
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
# Essential hypertension
-Blood pressure stable
-Norvasc, Benazepril continue with hold parameters
Acute metabolic encephalopathy likely secondary to infection
Now resolved
# Hyperlipidemia
-Statin, Zetia
-Possible continued
# GERD
-PPI continued
#Type 2 diabetes (NIDDM for 10 yrs, as per pt)with hyperglycemia/neuropathy
based on a1c, suboptimal control
-Gabapentin continued
-Holding metformin; restart glimepiride
-Lantus 10 units at bedtime
-sliding scale
a1c 8.2%
# DVT prophylaxis
-Lovenox subcu
# CODE STATUS
-Full code
General: Well Developed, Well Nourished and No Apparent Distress
HEENT: Normocephalic, Atraumatic and Moist Mucous Membranes
Respiratory: Clear to Auscultation; Negative Wheezes, Rales or Rhonchi
Cardiac: Regular Rhythm and S1/S2
GI: Soft, Nontender and Nondistended
Genito-urinary: No Costovertebral Tender
Musculoskeletal: Right second toe partial amputation, bandaged
Neuro: Awake, Alert, Oriented
I spent a total of 51 minutes with the patient or on the floor. More than 50% of this time involved counseling and coordination of care.
Anticipated Discharge: 24 - 48 hours
Subjective/Interval History
-
Date of Service: June 10, 2024
has some pain at times
Objective Data
-
Labs:
Laboratory Results
06/10/24
07:29
WBC 5.7
Hgb 12.1 L
Hct 34.1 L
Plt Count 144
Sodium 138
Potassium 3.7
Chloride 104
Carbon Dioxide 20 L
BUN 18
Creatinine 1.0
Glucose 212 H
Calcium 9.0
Vital Signs:
Vital Signs
Temp Pulse Resp BP Pulse Ox
98.5 F 75 16 147/88 98
06/10/24 11:20 06/10/24 11:20 06/10/24 11:20 06/10/24 11:20 06/10/24 11:20
I&O
06/09/24 06/10/24 06/11/24
06:59 06:59 06:59
Intake Total 3710 / 3710 2340 / 2340
Output Total 1500 / 1500 1245 / 1245
Balance 2210 / 2210 1095 / 1095
--- NOTE | 2024-06-10 12:30 | W.PN.SURGUPD ---
Surgical Update
Surgical Update
Patient seen and evaluated at bedside. Recovering well s/p right partial 2nd toe amputation
-No further surgical plans
-Dressings will be changed by surgical team on 06/11
-Antibiotic plan per ID
-Heel WBAT in a surgical shoe
[2024-06-10] MEDS: AMARYL 2 MG PO (13:13)
--- NOTE | 2024-06-10 15:54 | CM ---
Reviewed the chart notes and spoke with the patient and his spouse at the bedside. PT/OT recommending SNF vs homecare. Discussed with the patient and spouse SNF options vs VN services. Patient not interested at this time for SNF, but is agreeable
to VN. CM continues to be available to patient/family and is monitoring medical plan for needs at discharge.
Plan: SNF vs VN.
[2024-06-10 17:05] LABS: Glucose - Point of Care 263 mg/dl (70-99)
[2024-06-10] MEDS: VANCOCIN 275 MG IV (17:15)
[2024-06-10] MEDS: LOVENOX 40 MG SC (17:16)
[2024-06-10] MEDS: ASPIR LOW (ENTERIC COATED) 81 MG PO (17:16)
[2024-06-10] MEDS: GLUCOPHAGE 500 MG PO (17:16)
[2024-06-10] MEDS: NOVOLOG FLEXPEN-MODERATE RESISTANCE 5 UNITS SC (17:22)
[2024-06-10 21:50] LABS: Glucose - Point of Care 191 mg/dl (70-99)
[2024-06-11] VITALS (8 sets, daily range): BP systolic 128–164; BP diastolic 82–95; PULSE 78; O2SAT 96
[2024-06-11] MEDS: ZOSYN 50 IV (02:39)
[2024-06-11] MEDS: VANCOCIN 275 MG IV ×2 (05:07→17:44)
[2024-06-11] MEDS: ASPIR LOW (ENTERIC COATED) 81 MG PO (07:48)
[2024-06-11] MEDS: ZETIA 10 MG PO (07:48)
[2024-06-11] MEDS: NEURONTIN 600 MG PO ×3 (07:48→22:22)
[2024-06-11] MEDS: PROTONIX 40 MG PO ×2 (07:48→20:56)
[2024-06-11] MEDS: LIPITOR 80 MG PO (07:48)
[2024-06-11] MEDS: ZESTRIL 20 MG PO ×2 (07:48→20:56)
[2024-06-11] MEDS: AUGMENTIN 875 MG/125 MG 1 TABLET PO ×2 (07:49→20:56)
[2024-06-11] MEDS: AMARYL 2 MG PO (07:49)
[2024-06-11] MEDS: GLUCOPHAGE 500 MG PO ×2 (07:49→16:41)
[2024-06-11] MEDS: NORVASC 2.5 MG PO (07:49)
[2024-06-11] MEDS: NOVOLOG FLEXPEN-MODERATE RESISTANCE SC (07:52)
[2024-06-11 07:54] LABS: Glucose - Point of Care 149 mg/dl (70-99)
[2024-06-11 08:23] LABS: % Basophils 0.5 % (0-2); % Eosinophils 2.4 % (0-6); % Immature Granulocytes 0.5 % (0-0.5); % Lymphocytes 20.5 % (20.5-51.1); % Neutrophils 65.1 % (42.2-75.2); Absolute Eosinophils 0.1 10^3/uL (0-0.7); Absolute Lymphocytes 1.2 10^3/uL (1.2-3.4); Absolute Monocytes 0.6 10^3/uL (0.1-0.6); Absolute Neutrophils 3.8 10^3/uL (1.4-6.5); Hematocrit 35.5 % (39.0-52.0); Hemoglobin 12.3 g/dL (13.0-18.0); Mean Corp Hgb Conc. 34.6 g/dL (33.0-37.0); Mean Corpuscular Hgb 30.8 pg (27.0-31.0); Mean Platelet Volume 10.2 fL (7.4-10.4); Nucleated Red Blood Cells % 0 % (-); Platelet Count 174 10^3/uL (130-400); Red Blood Cell Count 3.99 10^6/uL (4.70-6.10); Red Cell Dist. Width 12.5 % (11.5-14.5); White Blood Cell Count 5.8 10^3/uL (4.8-10.8)
--- NOTE | 2024-06-11 08:47 | CM ---
Addendum entered by Natali Dubose RN 06/11/24 10:46:
CM spoke with the patient's spouse via telephone. Spouse has concerns for patient discharging to home since he will be alone everyday while the patient's spouse works. Awaiting PT/OT re-evaluation today for discharge planning. Midline ordered,
awaiting placement.
Original Note:
Reviewed the chart notes and spoke with the patient at the bedside. Patient to be on IV abx for two weeks. Discussed home with IV abx and VN vs SNF/rehab. Patient and spouse would prefer SNF/rehab prior to transitioning back to home. Referrals
sent via [facility] with [facility]. CM continues to be available to patient/family and is monitoring medical plan for needs at discharge.
Plan: Discharge to SNF/rehab once bed found. No precert required.
[2024-06-11 08:55] LABS: Blood Urea Nitrogen 16 mg/dl (9-20); Calcium 9.3 mg/dl (8.4-10.2); Carbon Dioxide 26 mmol/L (22-30); Chloride 103 mmol/L (98-107); Estimated Creatinine Clearance 53 ml/min; Glucose 149 mg/dl (70-99); Potassium 3.7 mmol/L (3.5-5.1); Sodium 142 mmol/L (135-145); eGFR > 60.00
--- NOTE | 2024-06-11 09:36 | PHA.VAN.FU ---
Vancomycin Assessment / Plan
- Assessment
Renal Function: SCR Increasing
WBC's are: WNL
In the past 24 hrs, patient has been: Afebrile
Concomitant Antimicrobials: amoxicillin/clavulanate
- Dosing Plan
Adjust Regimen to: dosing by level
Dosing Comments: give additional Vanc 1250mg x1 at 1800
Will continue Vanc 1250mg Q12H through today and change to dose by level in case SCR continues to increase
Will obtain levels following tonight's dose to assess current regimen
- Monitoring Plan
Peak Level: 06/11 21:00
Trough Level: 06/12 05:30
- Follow Up
Pharmacy will continue to follow.
Vancomycin Follow UP
- -
Patient Age: 74
Patient Sex: Male
Vancomycin Day #: 5
Indication: Skin And Soft Tissue
Requesting Provider: Dr. Jimenez / Susan
Pertinent Antimicrobial Allergies:
clindamycin - rash
Height / Weight:
Height 5 ft 8 in
Actual Weight 81.102 kg
Pertinent Past Medical History: DM II
- Vital Signs / Lab Results
Temp Pulse Resp BP Pulse Ox
99 F 79 18 164/95 98
06/11/24 07:25 06/11/24 07:49 06/11/24 07:25 06/11/24 07:49 06/11/24 07:25
Lab Results - Hematology
06/09/24 06/10/24 06/11/24
07:21 07:29 07:50
WBC 6.3 5.7 5.8
Lab Results - Chemistry
06/09/24 06/10/24 06/11/24
07:21 07:29 07:50
BUN 18 18 16
Creatinine 0.8 1.0 1.2
Estimated Creat Clear 80 64 53
Microbiology Results
06/09/24 16:30 Wound Culture - Preliminary
Toe No growth
Gram Stain - Preliminary
06/09/24 16:30 Anaerobic Culture - Preliminary
Toe Culture pending. Anaerobic cultures are examined after 3
days incubation. Additional information to follow.
06/09/24 11:13 Blood Culture - Preliminary
Blood/Venous No Growth in 24 hours- Final report to follow
06/09/24 09:35 Blood Culture - Preliminary
Blood/Venous No Growth in 24 hours- Final report to follow
06/06/24 18:55 Blood Culture - Final
Blood/Venous Staph aureus MRSA
Gram Stain - Final
06/06/24 19:17 Blood Culture - Preliminary
Blood/Venous Staph aureus MRSA
Gram Stain - Preliminary
Therapeutic Drug Monitoring
Vancomycin Peak 14.7 ug/ml (18-26) L 06/08/24 20:17
Vancomycin Trough 20.5 ug/ml (5-20) H* 06/09/24 07:21
Random Vancomycin 10.7 ug/ml 06/10/24 07:29
[2024-06-11 11:34] LABS: Glucose - Point of Care 267 mg/dl (70-99)
[2024-06-11] MEDS: PERCOCET 5/325 1 TABLET PO ×3 (11:40→22:27)
[2024-06-11] MEDS: NOVOLOG FLEXPEN-MODERATE RESISTANCE 5 UNITS SC (11:51)
--- NOTE | 2024-06-11 11:57 | W.PN.HOSP.TC ---
Today's Communication/Plan
-
Monitor vitals
See plan
Will need wound dressing change fax, PT/OT recs from podiatry
cw abx per ID
Assessment / Plan
Assessment / Plan
Sepsis secondary to right second toe osteomyelitis and MRSA bacteremia
ID following
Spoke with Podiatry, s/p right partial 2nd toe amputation 06/09; with presumed surgical cure. follow cx
cw abx per ID
-NWB RLE, PT/OT consult, heel touch for transfers
-Home dressing changes 2x per week
-foot x ray with No osseous destructive changes to confirm acute osteomyelitis.Severe osteoarthrosis of the midfoot with greatest involvement of the naviculocuneiform and second through fourth tarsometatarsal joints, again most suspicious for a
neuropathic arthrosis. No acute fracture or dislocation. Soft tissue swelling about the foot, nonspecific.
-blood culture from admission growing 2 bottles MRSA, new sets of blood culture 06/09 NGTD
-remains on vanco; also augmentin added. per ID cw abx though 06/19
-Tylenol prn for fever
-Podiatry following. need wound dressing recs and ambulatory recs from podiatry
MRI of foot: 1. Bone marrow edema in the second distal phalanx for which differential considerations include reactive edema versus the early changes of osteomyelitis given the proximity to the soft tissue wound at the distal aspect of the second
toe. No evidence for T1 hypointense marrow replacement.
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
# Essential hypertension
-Blood pressure stable
-Norvasc, Benazepril continue with hold parameters
Acute metabolic encephalopathy likely secondary to infection
Now resolved
# Hyperlipidemia
-Statin, Zetia
-Possible continued
# GERD
-PPI continued
#Type 2 diabetes (NIDDM for 10 yrs, as per pt)with hyperglycemia/neuropathy
based on a1c, suboptimal control
-Gabapentin continued
-restartedmetformin; restart glimepiride
-sliding scale
a1c 8.2%
# DVT prophylaxis
-Lovenox subcu
# CODE STATUS
-Full code
General: Well Developed, Well Nourished and No Apparent Distress
HEENT: Normocephalic, Atraumatic and Moist Mucous Membranes
Respiratory: Clear to Auscultation; Negative Wheezes, Rales or Rhonchi
Cardiac: Regular Rhythm and S1/S2
GI: Soft, Nontender and Nondistended
Genito-urinary: No Costovertebral Tender
Musculoskeletal: Right second toe partial amputation, bandaged
Neuro: Awake, Alert, Oriented
Anticipated Discharge: Within 24 hours
Subjective/Interval History
-
Date of Service: June 11, 2024
has pain at times
Objective Data
-
Labs:
Laboratory Results
06/11/24
07:50
WBC 5.8
Hgb 12.3 L
Hct 35.5 L
Plt Count 174 D
Sodium 142
Potassium 3.7
Chloride 103
Carbon Dioxide 26
BUN 16
Creatinine 1.2
Glucose 149 H
Calcium 9.3
Vital Signs:
Vital Signs
Temp Pulse Resp BP Pulse Ox
99.3 F 87 18 163/95 97
06/11/24 11:41 06/11/24 11:41 06/11/24 11:41 06/11/24 11:41 06/11/24 11:41
I&O
06/10/24 06/11/24 06/12/24
06:59 06:59 06:59
Intake Total 2340 / 2340 3195 / 3195
Output Total 1245 / 1245 1100 / 1100
Balance 1095 / 1095 2094 / 2094
--- NOTE | 2024-06-11 13:37 | W.PN.ID1 ---
Addendum entered and electronically signed by Yola Davis MD 06/11/24 16:53:
I saw and evaluated the patient. I reviewed the resident�s note and agree with findings and plan as documented in the resident�s note with the following additions/corrections:
SOAP
S:
no further fevers
no overnight events
Dr Rivera, updated patients re: need for IV vancomycin last night
O:
WBC 5.8
hgb 12.3
plt 174
L shift resolved
cr pending
wound culture of infected surface 06/09: no growth
anaerobic culture: pending
06/09 blood cultures no growth to date
Physical Exam
General: No Apparent Distress
Respiratory: Clear to asucultation BL, no rales, wheezes or ronchi
Cardiac: S1/S2 and Regular Rhythm; No Murmur or Rub
GI: Soft, Non Tender, Non Distended
Skin: dressing clean, in place, deferred take down
Psych: Calm
A&P
Diabetic Foot Infection of the Right second toe with osteomyelitis s/p curative resection
MRSA Bacteremia
DM2 - poorly controlled
Charcot Foot
Reported allergy to clindamycin - rash
- expect OR culture 06/09 to eventulaly have growth, as this is not a margin culture, results will not change duration of therapy
- repeat blood cultures x2 in progress for clearance of MRSA bacteremia - in progress
- midline ordered
- source of bacteremia was diabetic foot infection
- continue vancomycin - plan two weeks of therapy through 06/19/24
- switched zosyn to Augmentin also through 06/19/24
- follow up with podiatry, follow up with ID PRN
AW
Original Note:
Date of Service
Date of Service: June 11, 2024
Today's Communication
Stable for discharge from ID perspective.
Recommend 2 weeks of vancomycin and 2 weeks of Augmentin.
Assessment / Plan
Severe sepsis - Resolved
secondary to diabetic foot ulcer -
Elevated CRP, ESR, Lactic acid levels with tachycardia, tachypnea and fever upon admission.
Blood cultures upon admission positive for MRSA 06/06/2024.
X-ray negative for osteomyelitis, MRI suspicious for osteomyelitis.
On vancomycin - day 6,
Resolved lactic acid levels, tachycardia, tachypnea.
Last fever recorded-06/08/2024-102.2. Repeat blood cultures negative for 48 hrs- cleared of bacteremia.
Continue vancomycin for 2-3 more weeks through PICC line. As his 48 hr blood culture continue to remain negative,switched to oral augmentin for 2 weeks. Based on the biopsy results IV vancomycin course is to be determined.
Suspected osteomyelitis-
Secondary to hammer toes and diabetic foot ulcer.
Podiatry and orthopedics on board, partially amputated right second toe
Day 6 of vancomycin and Zosyn with last fever > 24 hrs ago.
Chief Complaint
-: Clinical Sepsis and Bacteremia
Subjective / Review of Systems
Review of Systems: No Fever, No Chills, No Headache, No Cough, No Chest Pain, No Palpitations, No Abdominal Pain and Diarrhea (1-2 episodes of loose stools, with bloating and flatulence)
Vital Signs / Physical Exam
Vital Signs
Vital Signs
Temp Pulse Resp BP Pulse Ox
99.3 F 87 18 163/95 97
06/11/24 11:41 06/11/24 11:41 06/11/24 11:41 06/11/24 11:41 06/11/24 11:41
Physical Exam
Constitutional: Comfortable
Cardiovascular: S1/S2; Negative Murmur, Rub or Gallop
Pulmonary: Clear; Negative Wheezes, Rales or Rhonchi
Gastrointestinal: Soft, Non Tender, Non Distended and Normal Bowel Sounds
Extremities: Edema (of the right foot.)
Skin: Warm
Neurological: Awake and Alert
Psychological: Calm
Lines: PICC (in his right arm.)
Objective Data
Lab Data
Lab Results
06/11/24 07:50
06/11/24 07:50
ESR 54 mm/hour (0-20) H 06/08/24 07:08
Estimated Creat Clear 53 ml/min 06/11/24 07:50
Lactic Acid 1.1 mmol/L (0.7-2.0) 06/08/24 07:08
Total Bilirubin Cancelled 06/06/24 18:55
AST Cancelled 06/06/24 18:55
ALT Cancelled 06/06/24 18:55
Alkaline Phosphatase Cancelled 06/06/24 18:55
C-Reactive Protein 176.50 mg/L (0.0-10.00) H 06/06/24 18:55
Most recent labs reviewed.
Microbiology: Report Reviewed and Discussed w/ Micro
Micro Results:
06/09/24 11:13 Blood Culture - Preliminary
Blood/Venous No Growth in 48 hours- Final report to follow
06/09/24 16:30 Wound Culture - Preliminary
Toe No growth
Gram Stain - Preliminary
06/09/24 09:35 Blood Culture - Preliminary
Blood/Venous No Growth in 48 hours- Final report to follow
06/09/24 16:30 Anaerobic Culture - Preliminary
Toe Culture pending. Anaerobic cultures are examined after 3
days incubation. Additional information to follow.
06/06/24 18:55 Blood Culture - Final
Blood/Venous Staph aureus MRSA
Gram Stain - Final
06/06/24 19:17 Blood Culture - Preliminary
Blood/Venous Staph aureus MRSA
Gram Stain - Preliminary
06/06/24 23:29 MRSA Screen - Final
Nose No Methicillin Resistant Staphylococcus aureus isolated.
[2024-06-11 16:48] LABS: Glucose - Point of Care 179 mg/dl (70-99)
[2024-06-11] MEDS: LOVENOX 40 MG SC (17:44)
[2024-06-11] MEDS: NOVOLOG FLEXPEN-MODERATE RESISTANCE 1 UNITS SC (17:44)
[2024-06-11 21:50] LABS: Glucose - Point of Care 134 mg/dl (70-99)
[2024-06-11 22:09] LABS: Vancomycin Peak 23.9 ug/ml (18-26)
[2024-06-12] VITALS (7 sets, daily range): BP systolic 139–163; BP diastolic 79–99; PULSE 87; O2SAT 96
[2024-06-12 05:36] LABS: % Basophils 0.7 % (0-2); % Eosinophils 2.8 % (0-6); % Neutrophils 59.5 % (42.2-75.2); Absolute Eosinophils 0.2 10^3/uL (0-0.7); Absolute Immature Granulocytes 0.1 10^3/uL (0-0.05); Absolute Lymphocytes 1.5 10^3/uL (1.2-3.4); Absolute Monocytes 0.7 10^3/uL (0.1-0.6); Absolute Neutrophils 3.6 10^3/uL (1.4-6.5); Hematocrit 30.8 % (39.0-52.0); Mean Corp Hgb Conc. 35.7 g/dL (33.0-37.0); Mean Corpuscular Hgb 31.3 pg (27.0-31.0); Mean Corpuscular Volume 87.7 fL (80.0-94.0); Nucleated Red Blood Cells % 0 % (-); Platelet Count 178 10^3/uL (130-400); Red Blood Cell Count 3.51 10^6/uL (4.70-6.10); Red Cell Dist. Width 12.5 % (11.5-14.5); White Blood Cell Count 6.1 10^3/uL (4.8-10.8)
[2024-06-12 05:57] LABS: Vancomycin Trough 14.7 ug/ml (5-20)
[2024-06-12 06:01] LABS: Blood Urea Nitrogen 18 mg/dl (9-20); Calcium 9.1 mg/dl (8.4-10.2); Carbon Dioxide 25 mmol/L (22-30); Chloride 104 mmol/L (98-107); Estimated Creatinine Clearance 58 ml/min; Glucose 185 mg/dl (70-99); Potassium 3.6 mmol/L (3.5-5.1); Sodium 139 mmol/L (135-145); eGFR > 60.00
--- NOTE | 2024-06-12 07:00 | W.PN.ORTHO ---
Today's Communication / Plan
-
PT/OT
Post-op shoe
Heel weightbearing
ASA
Follow-up orthopedics 2 weeks post-op
Orthopedics to sign off
Assessment
.
Distal Motor Intact: Yes
Dressing:
Clean, dry and intact. Per patient dressing changed yesterday.
Plan
.
Surgery / Date: R 2nd toe amp 06/09 [facility]
DVT Prophylaxis: Aspirin
Activity:
Out of bed.
PT/OT
Discharge Plan: Rehab
Subjective
.
.:
Patient resting comfortably.
Vital Signs and Labs
.
Vital Signs and Labs:
Lab Results
06/12/24 05:14
06/12/24 05:14
Temp Pulse Resp BP Pulse Ox
98.3 F 81 16 150/93 97
06/12/24 03:00 06/12/24 03:00 06/12/24 03:00 06/12/24 03:00 06/12/24 03:00
--- NOTE | 2024-06-12 07:43 | W.PN.SURGUPD ---
Surgical Update
Surgical Update
Patient s/p R 2nd partial toe amputation. Recovering well
-Patient seen and evaluated at bedside.
-Dressings change, incision well coapted and healing
-Continue abx per ID recommendations
-Heel WBAT in surgical shoe acceptable. Recommend PT/OT evaluation
-Dressings to remain intact until follow up in 10-14 days
--- NOTE | 2024-06-12 07:54 | PHA.VAN.FU ---
Vancomycin Assessment / Plan
- Assessment
Renal Function: Stable
WBC's are: WNL
In the past 24 hrs, patient has been: Afebrile
Concomitant Antimicrobials: amoxicillin/clavulanate
- Assessment - Therapeutic Drug Monitoring
Extrapolated Cmax (mcg/mL): 26.9
Peak level was drawn: Appropriately (drawn ~2H after end of previous infusion)
Extrapolated Cmin (mcg/mL): 14.2
Trough Drawn: Appropriately
Levels were drawn: At steady state (levels drawn after 3rd scheduled dose of new regimen)
Calculated AUC (mcg*h/mL): 480
Calculated ke: 0.0606
Calculated half life (H): 11.4
Calculated Vd (L): 86 (~1 L/kg)
Calculated Vanc CL (ml/min): 87
- Dosing Plan
Adjust Regimen to: Vanc 1000mg Q12H
New Regimen Predicts: AUC (400), Peak (22.5), Trough (11.6)
Patient may have additional accumulation, especially with elevated SCR
Will reduce dose slightly to minimize risk for nephrotoxicity during therapy
- Monitoring Plan
No level(s) ordered at this time: consider repeat levels by Sunday
Monitoring Comments: follow renal function
- Follow Up
Pharmacy will continue to follow.
Vancomycin Follow UP
- -
Patient Age: 74
Patient Sex: Male
Vancomycin Day #: 6
Indication: Skin And Soft Tissue
Requesting Provider: Dr. Jimenez / Susan
Pertinent Antimicrobial Allergies:
clindamycin - rash
Height / Weight:
Height 5 ft 8 in
Actual Weight 81.102 kg
Pertinent Past Medical History: DM II
- Vital Signs / Lab Results
Temp Pulse Resp BP Pulse Ox
98 F 79 18 155/99 98
06/12/24 07:34 06/12/24 07:34 06/12/24 07:34 06/12/24 07:34 06/12/24 07:34
Lab Results - Hematology
06/09/24 06/10/24 06/11/24
07:21 07:29 07:50
WBC 6.3 5.7 5.8
06/12/24
05:14
WBC 6.1
Lab Results - Chemistry
06/09/24 06/10/24 06/11/24
07:21 07:29 07:50
BUN 18 18 16
Creatinine 0.8 1.0 1.2
Estimated Creat Clear 80 64 53
06/12/24
05:14
BUN 18
Creatinine 1.1
Estimated Creat Clear 58
Microbiology Results
06/09/24 11:13 Blood Culture - Preliminary
Blood/Venous No Growth in 48 hours- Final report to follow
06/09/24 16:30 Wound Culture - Preliminary
Toe No growth
Gram Stain - Preliminary
06/09/24 09:35 Blood Culture - Preliminary
Blood/Venous No Growth in 48 hours- Final report to follow
06/09/24 16:30 Anaerobic Culture - Preliminary
Toe Culture pending. Anaerobic cultures are examined after 3
days incubation. Additional information to follow.
06/06/24 18:55 Blood Culture - Final
Blood/Venous Staph aureus MRSA
Gram Stain - Final
Therapeutic Drug Monitoring
Vancomycin Peak 23.9 ug/ml (18-26) 06/11/24 21:12
Vancomycin Trough 14.7 ug/ml (5-20) 06/12/24 05:13
Random Vancomycin 10.7 ug/ml 06/10/24 07:29
[2024-06-12 08:03] LABS: Glucose - Point of Care 178 mg/dl (70-99)
[2024-06-12] MEDS: NOVOLOG FLEXPEN-MODERATE RESISTANCE 1 UNITS SC ×2 (08:13→18:08)
[2024-06-12] MEDS: ASPIR LOW (ENTERIC COATED) 81 MG PO (09:14)
[2024-06-12] MEDS: ZETIA 10 MG PO (09:14)
[2024-06-12] MEDS: AUGMENTIN 875 MG/125 MG 1 TABLET PO ×2 (09:15→21:47)
[2024-06-12] MEDS: NEURONTIN 600 MG PO ×3 (09:15→21:47)
[2024-06-12] MEDS: GLUCOPHAGE 500 MG PO ×2 (09:16→16:41)
[2024-06-12] MEDS: PROTONIX 40 MG PO ×2 (09:16→21:47)
[2024-06-12] MEDS: AMARYL 2 MG PO (09:16)
[2024-06-12] MEDS: LIPITOR 80 MG PO (09:16)
[2024-06-12] MEDS: ZESTRIL 20 MG PO ×2 (09:17→21:48)
[2024-06-12] MEDS: VANCOCIN 200 IV ×2 (09:20→17:12)
[2024-06-12] MEDS: NORVASC 2.5 MG PO (09:22)
--- NOTE | 2024-06-12 10:38 | W.PN.ID1 ---
Addendum entered and electronically signed by Yola Davis MD 06/12/24 17:05:
I saw and evaluated the patient. I reviewed the resident�s note and agree with findings and plan as documented in the resident�s note with the following additions/corrections:
SOAP
S:
no further fevers
no overnight events
O:
labs as documented by resident
Physical Exam
General: No Apparent Distress
Respiratory: no respiratory distress
Cardiac: regular rate
GI: Non Distended
Skin: deferred dressing take down per podiatry
Psych: Calm
A&P
Diabetic Foot Infection of the Right second toe with osteomyelitis s/p curative resection
MRSA Bacteremia
DM2 - poorly controlled
Charcot Foot
Reported allergy to clindamycin - rash
- 06/09 OR culture not from the margin
- 06/09 anaerobic cx pending
- repeat blood cultures x2 in progress for clearance of MRSA bacteremia - in progress
- midline ordered
- source of bacteremia was diabetic foot infection
- continue vancomycin - plan two weeks of therapy through 06/19/24
- switched zosyn to Augmentin also through 06/19/24
- follow up with podiatry, follow up with ID PRN
AW
Original Note:
Date of Service
Date of Service: June 12, 2024
Today's Communication
continue vancomycin and Augmentin. Stable for discharge from ID standpoint.
Assessment / Plan
Assessment -
Severe sepsis - Resolved
secondary to diabetic foot ulcer -
Elevated CRP, ESR, Lactic acid levels with tachycardia, tachypnea and fever upon admission.
Blood cultures upon admission positive for MRSA 06/06/2024.
X-ray negative for osteomyelitis, MRI suspicious for osteomyelitis.
Resolved lactic acid levels, tachycardia, tachypnea.
Last fever recorded-06/08/2024-102.2. Repeat blood cultures negative for 48 hrs- cleared of bacteremia.
Suspected osteomyelitis-
Secondary to hammer toes and diabetic foot ulcer.
Plan -
Podiatry and orthopedics on board, partially amputated right second toe.
On vancomycin - day 7,
Continue vancomycin for 2-3 more weeks through PICC line. As his 48 hr blood culture continue to remain negative,switched to oral augmentin for 2 weeks.
Switched to Augmentin for diabetic foot infection.
Wound cultures negative for 48 hrs.
Will remain on vancomycin and Augmentin for 2 weeks.
Chief Complaint
-: Clinical Sepsis and Bacteremia
Subjective / Review of Systems
Review of Systems: No Fever, No Chills, No Headache, No Cough, No Chest Pain, No Palpitations, No Nausea and Other (loose stools and bloating)
Vital Signs / Physical Exam
Vital Signs
Vital Signs
Temp Pulse Resp BP Pulse Ox
98 F 79 18 155/99 98
06/12/24 07:34 06/12/24 09:22 06/12/24 07:34 06/12/24 09:22 06/12/24 07:34
Physical Exam
Constitutional: Comfortable
Cardiovascular: Regular Rate and S1/S2; Negative Murmur, Rub or Gallop
Pulmonary: Clear; Negative Wheezes, Rales or Rhonchi
Gastrointestinal: Soft, Non Tender, Non Distended and Normal Bowel Sounds
Extremities: Edema (right lower extremity 1+ pitting edema, improving.)
Skin: Warm
Neurological: Awake
Psychological: Calm
Objective Data
Lab Data
Lab Results
06/12/24 05:14
06/12/24 05:14
ESR 54 mm/hour (0-20) H 06/08/24 07:08
Estimated Creat Clear 58 ml/min 06/12/24 05:14
Lactic Acid 1.1 mmol/L (0.7-2.0) 06/08/24 07:08
Total Bilirubin Cancelled 06/06/24 18:55
AST Cancelled 06/06/24 18:55
ALT Cancelled 06/06/24 18:55
Alkaline Phosphatase Cancelled 06/06/24 18:55
C-Reactive Protein 176.50 mg/L (0.0-10.00) H 06/06/24 18:55
Most recent labs reviewed.
Micro Results:
06/09/24 16:30 Anaerobic Culture - Preliminary
Toe Culture pending. Anaerobic cultures are examined after 3
days incubation. Additional information to follow.
06/09/24 16:30 Wound Culture - Preliminary
Toe No growth
Gram Stain - Preliminary
06/09/24 09:35 Blood Culture - Preliminary
Blood/Venous No Growth in 72 hours- Final report to follow
06/09/24 11:13 Blood Culture - Preliminary
Blood/Venous No Growth in 48 hours- Final report to follow
06/06/24 18:55 Blood Culture - Final
Blood/Venous Staph aureus MRSA
Gram Stain - Final
06/06/24 19:17 Blood Culture - Preliminary
Blood/Venous Staph aureus MRSA
Gram Stain - Preliminary
06/06/24 23:29 MRSA Screen - Final
Nose No Methicillin Resistant Staphylococcus aureus isolated.
--- NOTE | 2024-06-12 11:13 | W.PN.HOSP.TC ---
Today's Communication/Plan
-
monitor vitals
see plan
cw abx
pt/ot instructions per podiatry
discharge planning; discussed with spouse; needs SNF
Assessment / Plan
Assessment / Plan
Sepsis secondary to right second toe osteomyelitis and MRSA bacteremia
ID following
Spoke with Podiatry, s/p right partial 2nd toe amputation 06/09; with presumed surgical cure. follow cx
cw abx per ID
Heel WBAT in surgical shoe acceptable per podiatry with boot; PT/OT. Dressings to remain intact until follow up in 10-14 days per podiatry
-Home dressing changes 2x per week
-foot x ray with No osseous destructive changes to confirm acute osteomyelitis.Severe osteoarthrosis of the midfoot with greatest involvement of the naviculocuneiform and second through fourth tarsometatarsal joints, again most suspicious for a
neuropathic arthrosis. No acute fracture or dislocation. Soft tissue swelling about the foot, nonspecific.
-blood culture from admission growing 2 bottles MRSA, new sets of blood culture 06/09 NGTD
-remains on vanco; also augmentin added. Continue vancomycin for 2-3 more weeks through PICC line. As his 48 hr blood culture continue to remain negative,switched to oral augmentin for 2 weeks per ID
-Tylenol prn for fever
-Podiatry following. need wound dressing recs and ambulatory recs from podiatry
MRI of foot: 1. Bone marrow edema in the second distal phalanx for which differential considerations include reactive edema versus the early changes of osteomyelitis given the proximity to the soft tissue wound at the distal aspect of the second
toe. No evidence for T1 hypointense marrow replacement.
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
# Essential hypertension
-Blood pressure stable
-Norvasc, Benazepril continue with hold parameters
Acute metabolic encephalopathy likely secondary to infection
Now resolved
# Hyperlipidemia
-Statin, Zetia
# GERD
-PPI continued
#Type 2 diabetes (NIDDM for 10 yrs, as per pt)with hyperglycemia/neuropathy
based on a1c, suboptimal control
-Gabapentin continued
-restarted metformin; restart glimepiride
-sliding scale
a1c 8.2%
# DVT prophylaxis
-Lovenox subcu
# CODE STATUS
-Full code
General: Well Developed, Well Nourished and No Apparent Distress
HEENT: Normocephalic, Atraumatic and Moist Mucous Membranes
Respiratory: Clear to Auscultation; Negative Wheezes, Rales or Rhonchi
Cardiac: Regular Rhythm and S1/S2
GI: Soft, Nontender and Nondistended
Genito-urinary: No Costovertebral Tender
Musculoskeletal: Right second toe partial amputation, bandaged
Neuro: Awake, Alert, Oriented
Anticipated Discharge: Today
Subjective/Interval History
-
Date of Service: June 12, 2024
denies nausea
Objective Data
-
Labs:
Laboratory Results
06/12/24
05:14
WBC 6.1
Hgb 11.0 L
Hct 30.8 L
Plt Count 178
Sodium 139
Potassium 3.6
Chloride 104
Carbon Dioxide 25
BUN 18
Creatinine 1.1
Glucose 185 H
Calcium 9.1
Vital Signs:
Vital Signs
Temp Pulse Resp BP Pulse Ox
99.4 F 76 18 162/97 98
06/12/24 11:09 06/12/24 11:09 06/12/24 11:09 06/12/24 11:09 06/12/24 11:09
I&O
06/11/24 06/12/24 06/13/24
06:59 06:59 06:59
Intake Total 3195 / 3195 1320 / 1320
Output Total 1100 / 1100 1025 / 1025
Balance 2094 295 / 295
[2024-06-12 12:02] LABS: Glucose - Point of Care 275 mg/dl (70-99)
[2024-06-12] MEDS: NOVOLOG FLEXPEN-MODERATE RESISTANCE 5 UNITS SC (12:23)
--- NOTE | 2024-06-12 14:22 | CM ---
Addendum entered by ED Ly 06/12/24 14:42:
Margaret stated that she can offer a bed to patient tomorrow. No auth will be needed.
#for report [phone]
#for fax [phone]
Will need to establish that family can report.
Original Note:
Reviewed chart, spoke with Margaret in admissions at [facility] who is checking on bed availability. Spoke with attending who confirmed that patient is medically cleared.
Plan: Case management will continue to follow and assist with discharge planning. Hopeful for [facility].
[2024-06-12] MEDS: PERCOCET 5/325 1 TABLET PO (17:10)
[2024-06-12] MEDS: LOVENOX 40 MG SC (17:11)
[2024-06-12 17:54] LABS: Glucose - Point of Care 182 mg/dl (70-99)
[2024-06-12 22:00] LABS: Glucose - Point of Care 199 mg/dl (70-99)
[2024-06-13] MEDS: VANCOCIN 200 IV (05:46)
[2024-06-13 06:40] LABS: % Basophils 0.7 % (0-2); % Eosinophils 2.1 % (0-6); % Immature Granulocytes 1.3 % (0-0.5); % Lymphocytes 19.4 % (20.5-51.1); % Monocytes 8.7 % (1.7-9.3); % Neutrophils 67.8 % (42.2-75.2); Absolute Basophils 0.1 10^3/uL (0-0.2); Absolute Eosinophils 0.2 10^3/uL (0-0.7); Absolute Immature Granulocytes 0.1 10^3/uL (0-0.05); Absolute Lymphocytes 1.5 10^3/uL (1.2-3.4); Absolute Monocytes 0.7 10^3/uL (0.1-0.6); Absolute Neutrophils 5.2 10^3/uL (1.4-6.5); Hematocrit 31.8 % (39.0-52.0); Hemoglobin 11.3 g/dL (13.0-18.0); Mean Corp Hgb Conc. 35.5 g/dL (33.0-37.0); Mean Corpuscular Hgb 31.5 pg (27.0-31.0); Mean Corpuscular Volume 88.6 fL (80.0-94.0); Nucleated Red Blood Cells % 0 % (-); Platelet Count 236 10^3/uL (130-400); Red Blood Cell Count 3.59 10^6/uL (4.70-6.10); Red Cell Dist. Width 12.5 % (11.5-14.5); White Blood Cell Count 7.6 10^3/uL (4.8-10.8)
[2024-06-13 06:48] LABS: Blood Urea Nitrogen 17 mg/dl (9-20); Calcium 9.2 mg/dl (8.4-10.2); Carbon Dioxide 25 mmol/L (22-30); Chloride 102 mmol/L (98-107); Estimated Creatinine Clearance 64 ml/min; Glucose 196 mg/dl (70-99); Potassium 3.7 mmol/L (3.5-5.1); Sodium 139 mmol/L (135-145); eGFR > 60.00
[2024-06-13 07:30] VITALS: BP 145/88
[2024-06-13 07:37] LABS: Glucose - Point of Care 200 mg/dl (70-99)
[2024-06-13] MEDS: LIPITOR 80 MG PO (08:12)
[2024-06-13] MEDS: NORVASC 2.5 MG PO (08:12)
[2024-06-13] MEDS: ZESTRIL 20 MG PO (08:12)
[2024-06-13] MEDS: AMARYL 2 MG PO (08:12)
[2024-06-13] MEDS: PROTONIX 40 MG PO (08:12)
[2024-06-13] MEDS: ASPIR LOW (ENTERIC COATED) 81 MG PO (08:12)
[2024-06-13] MEDS: NOVOLOG FLEXPEN-MODERATE RESISTANCE 3 UNITS SC (08:13)
[2024-06-13] MEDS: ZETIA 10 MG PO (08:13)
[2024-06-13] MEDS: NEURONTIN 600 MG PO (08:13)
[2024-06-13] MEDS: GLUCOPHAGE 500 MG PO (08:13)
[2024-06-13] MEDS: AUGMENTIN 875 MG/125 MG 1 TABLET PO (08:13)
--- NOTE | 2024-06-13 08:18 | PHA.VAN.FU ---
Vancomycin Assessment / Plan
- Assessment
Renal Function: Stable
WBC's are: WNL
In the past 24 hrs, patient has been: Afebrile
Concomitant Antimicrobials: amoxicillin/clavulanate
- Dosing Plan
Continue: Vanc 1000mg Q12H
- Monitoring Plan
No level(s) ordered at this time: consider repeat levels by Sunday, if remains admitted
Monitoring Comments: follow renal function
Following discharge, may consider repeat levels by Sunday or hold off as course to complete 06/19
- Follow Up
Pharmacy will continue to follow.
Vancomycin Follow UP
- -
Patient Age: 74
Patient Sex: Male
Vancomycin Day #: 7
Indication: Skin And Soft Tissue
Requesting Provider: Dr. Jimenez / Susan
Pertinent Antimicrobial Allergies:
clindamycin - rash
Height / Weight:
Height 5 ft 8 in
Actual Weight 81.102 kg
Pertinent Past Medical History: DM II
- Vital Signs / Lab Results
Temp Pulse Resp BP Pulse Ox
98.5 F 77 16 145/88 99
06/13/24 07:30 06/13/24 08:12 06/13/24 07:30 06/13/24 08:12 06/13/24 07:30
Lab Results - Hematology
06/11/24 06/12/24 06/13/24
07:50 05:14 06:00
WBC 5.8 6.1 7.6
Lab Results - Chemistry
06/10/24 06/11/24 06/12/24
07:29 07:50 05:14
BUN 18 16 18
Creatinine 1.0 1.2 1.1
Estimated Creat Clear 64 53 58
06/13/24
06:00
BUN 17
Creatinine 1.0
Estimated Creat Clear 64
Microbiology Results
06/09/24 16:30 Anaerobic Culture - Preliminary
Toe Culture pending. Anaerobic cultures are examined after 3
days incubation. Additional information to follow.
06/09/24 11:13 Blood Culture - Preliminary
Blood/Venous No Growth in 72 hours- Final report to follow
06/09/24 16:30 Wound Culture - Preliminary
Toe No growth
Gram Stain - Preliminary
06/09/24 09:35 Blood Culture - Preliminary
Blood/Venous No Growth in 72 hours- Final report to follow
Therapeutic Drug Monitoring
Vancomycin Peak 23.9 ug/ml (18-26) 06/11/24 21:12
Vancomycin Trough 14.7 ug/ml (5-20) 06/12/24 05:13
Random Vancomycin 10.7 ug/ml 06/10/24 07:29
--- NOTE | 2024-06-13 08:57 | W.PN.ID1 ---
Addendum entered and electronically signed by Yola Davis MD 06/13/24 17:52:
I saw and evaluated the patient. I reviewed the resident�s note and agree with findings and plan as documented in the resident�s note as written.
Patient was discharged before I rounded on his unit and I was not able to examine him. The assessment and plan is unchanged from yesterday
nonbilable note
AW
Original Note:
Date of Service
Date of Service: June 13, 2024
Today's Communication
Continue vancomycin and augmentin through 06/19/24.
Assessment / Plan
Assessment -
Severe sepsis - Resolved
secondary to diabetic foot ulcer -
Elevated CRP, ESR, Lactic acid levels with tachycardia, tachypnea and fever upon admission.
Blood cultures upon admission positive for MRSA 06/06/2024.
X-ray negative for osteomyelitis, MRI suspicious for osteomyelitis.
Resolved lactic acid levels, tachycardia, tachypnea.
Last fever recorded-06/08/2024-102.2. Repeat blood cultures negative for 48 hrs- cleared of bacteremia.
Suspected osteomyelitis-
Secondary to hammer toes and diabetic foot ulcer.
Plan -
Podiatry and orthopedics on board, partially amputated right second toe.
On vancomycin - day 7,
Continue vancomycin for 2 weeks through PICC line till 06/19/24. As his 48 hr blood culture continue to remain negative, switched to oral augmentin, take through 06/19/24.
Switched to Augmentin for diabetic foot infection.
Wound cultures negative for 72 hrs.
Will remain on vancomycin and Augmentin for 2 weeks.
Chief Complaint
-: Clinical Sepsis and Bacteremia
Subjective / Review of Systems
Review of Systems: No Fever, No Chills, No Headache, No Pharyngitis, No Cough, No Sputum Production, No Chest Pain, No Palpitations, No Abdominal Pain, No Nausea, No Dysuria, No Joint Pain and No Skin Rash
Vital Signs / Physical Exam
Vital Signs
Vital Signs
Temp Pulse Resp BP Pulse Ox
98.5 F 77 16 145/88 99
06/13/24 07:30 06/13/24 08:12 06/13/24 07:30 06/13/24 08:12 06/13/24 07:30
Physical Exam
Constitutional: Cachetic
Cardiovascular: Regular Rate and S1/S2; Negative Murmur, Rub or Gallop
Pulmonary: Clear; Negative Wheezes, Rales or Rhonchi
Gastrointestinal: Soft, Non Tender and Non Distended
Extremities: Edema (resolving, ) and Other (charcot feet, hammer toes)
Skin: Warm
Psychological: Calm
Objective Data
Lab Data
Lab Results
06/13/24 06:00
06/13/24 06:00
ESR 54 mm/hour (0-20) H 06/08/24 07:08
Estimated Creat Clear 64 ml/min 06/13/24 06:00
Lactic Acid 1.1 mmol/L (0.7-2.0) 06/08/24 07:08
Total Bilirubin Cancelled 06/06/24 18:55
AST Cancelled 06/06/24 18:55
ALT Cancelled 06/06/24 18:55
Alkaline Phosphatase Cancelled 06/06/24 18:55
C-Reactive Protein 176.50 mg/L (0.0-10.00) H 06/06/24 18:55
Most recent labs reviewed.
Microbiology: Report Reviewed
Micro Results:
06/09/24 16:30 Anaerobic Culture - Preliminary
Toe Culture pending. Anaerobic cultures are examined after 3
days incubation. Additional information to follow.
06/09/24 11:13 Blood Culture - Preliminary
Blood/Venous No Growth in 72 hours- Final report to follow
06/09/24 16:30 Wound Culture - Preliminary
Toe No growth
Gram Stain - Preliminary
06/09/24 09:35 Blood Culture - Preliminary
Blood/Venous No Growth in 72 hours- Final report to follow
06/06/24 18:55 Blood Culture - Final
Blood/Venous Staph aureus MRSA
Gram Stain - Final
06/06/24 19:17 Blood Culture - Preliminary
Blood/Venous Staph aureus MRSA
Gram Stain - Preliminary
06/06/24 23:29 MRSA Screen - Final
Nose No Methicillin Resistant Staphylococcus aureus isolated.
[2024-06-13] MEDS: ORETIC 25 MG PO (10:10)
--- NOTE | 2024-06-13 11:43 | CM ---
Addendum entered by Natali Dubose RN 06/13/24 13:33:
Correction:
Call report to: [phone] and (F) [phone]
Addendum entered by Natali Dubose RN 06/13/24 13:20:
CM spoke with the patient's spouse via telephone. Updated on the discharge to [facility] today and pick-up time of 2pm.
Original Note:
Reviewed the chart notes and spoke with the patient at the bedside. Review IMM. Copy left with the patient.
Plan: Discharge to [facility]
Call report to: [phone]
Fax report to: [phone]
Medical necessity and transport forms on chart.
--- NOTE | 2024-06-13 11:53 | W.PN.HOSP.TC ---
Today's Communication/Plan
-
Monitor vital signs
see plan
Discharge to SNF
vancomycin and augmentin through 06/19/24
Time of discharge 38 minutes
Assessment / Plan
Assessment / Plan
Sepsis secondary to right second toe osteomyelitis and MRSA bacteremia
ID following
Spoke with Podiatry, s/p right partial 2nd toe amputation 06/09; with presumed surgical cure. follow cx
cw abx per ID
Heel WBAT in surgical shoe acceptable per podiatry with boot; PT/OT. Dressings to remain intact until follow up in 10-14 days per podiatry
-Home dressing changes 2x per week
-foot x ray with No osseous destructive changes to confirm acute osteomyelitis.Severe osteoarthrosis of the midfoot with greatest involvement of the naviculocuneiform and second through fourth tarsometatarsal joints, again most suspicious for a
neuropathic arthrosis. No acute fracture or dislocation. Soft tissue swelling about the foot, nonspecific.
-blood culture from admission growing 2 bottles MRSA, new sets of blood culture 06/09 NGTD
-remains on vanco; also augmentin added. Continue vancomycin for 2-3 more weeks through PICC line. As his 48 hr blood culture continue to remain negative,switched to oral augmentin for 2 weeks per ID
-Tylenol prn for fever
-Podiatry following. need wound dressing recs and ambulatory recs from podiatry
MRI of foot: 1. Bone marrow edema in the second distal phalanx for which differential considerations include reactive edema versus the early changes of osteomyelitis given the proximity to the soft tissue wound at the distal aspect of the second
toe. No evidence for T1 hypointense marrow replacement.
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
# Essential hypertension
-Blood pressure stable
-Norvasc, Benazepril continue with hold parameters
Acute metabolic encephalopathy likely secondary to infection
Now resolved
# Hyperlipidemia
-Statin, Zetia
# GERD
-PPI continued
#Type 2 diabetes (NIDDM for 10 yrs, as per pt)with hyperglycemia/neuropathy
based on a1c, suboptimal control
-Gabapentin continued
-restarted metformin; restart glimepiride
-sliding scale
a1c 8.2%
# DVT prophylaxis
-Lovenox subcu
# CODE STATUS
-Full code
General: Well Developed, Well Nourished and No Apparent Distress
HEENT: Normocephalic, Atraumatic and Moist Mucous Membranes
Respiratory: Clear to Auscultation; Negative Wheezes, Rales or Rhonchi
Cardiac: Regular Rhythm and S1/S2
GI: Soft, Nontender and Nondistended
Genito-urinary: No Costovertebral Tender
Musculoskeletal: Right second toe partial amputation, bandaged
Neuro: Awake, Alert, Oriented
Anticipated Discharge: Today
Subjective/Interval History
-
Date of Service: June 13, 2024
denies nausea
Objective Data
-
Labs:
Laboratory Results
06/13/24
06:00
WBC 7.6
Hgb 11.3 L
Hct 31.8 L
Plt Count 236 D
Sodium 139
Potassium 3.7
Chloride 102
Carbon Dioxide 25
BUN 17
Creatinine 1.0
Glucose 196 H
Calcium 9.2
Vital Signs:
Vital Signs
Temp Pulse Resp BP Pulse Ox
98.5 F 86 16 141/93 99
06/13/24 07:30 06/13/24 10:10 06/13/24 07:30 06/13/24 10:10 06/13/24 07:30
I&O
06/12/24 06/13/24 06/14/24
06:59 06:59 06:59
Intake Total 1320 / 1320 2370 / 2370
Output Total 1025 / 1025 2200 / 2200
Balance 295 / 295 170 / 170
--- NOTE | 2024-06-13 11:58 | W.DCSUMMARY ---
Discharge Summary
Discharge Data
Date of Admission: 06/06/24
Date of Discharge: 06/13/24
-
Pending Results: No
Hospital Course
71-year-old male with past medical history of diabetes, essential hypertension, hyperlipidemia, GERD came to the hospital with sepsis secondary to right second toe osteomyelitis and MRSA bacteremia. Patient was seen by infectious disease throughout
hospitalization. Patient was also seen by podiatry and was taken to the OR for right partial second toe amputation. Patient blood culture continue to improve and his latest culture was negative. Patient was also eval by physical therapy
recommended SNF. Once his symptoms continue to improve, he was then discharged to rehab with instructions to follow-up with all his physicians outpatient.
Discharge Plan
-
Patient Disposition: [facility]NF
Discharge Diagnosis/Procedures: Sepsis secondary to right second toe osteomyelitis and MRSA bacteremia
s/p right partial 2nd toe amputation 06/09
Acute metabolic encephalopathy likely secondary to infection
Condition: Good
Diet: As tolerated and Diabetic, Carb Controlled
Activity: With assistance and As tolerated
Driving Restrictions: Not until seen by your Dr
Bathing Restrictions: None
Other Services: PT and OT
Referrals:
Evelyn Briones MD [Family Provider] - in less than 1 week
Brady Estrella MD [Active] - in one week
Yola Davis MD [Active] -
Prescriptions:
New
acetaminophen 325 mg Tablet
650 mg PO Q4HPRN PRN (Reason: DONAHUE/mild pain/temp > 100.4 F) Qty: 0 0RF
amoxicillin-pot clavulanate 875-125 mg Tablet
1 tab PO Q12 Qty: 0 0RF
oxycodone-acetaminophen 5-325 mg Tablet
1 tab PO Q4HPRN PRN (Reason: moderate pain) Qty: 12 0RF
vancomycin in 0.9 % sodium chl 1 gram/200 mL Piggyback
1 g IV Q12@0600,1800 Qty: 0 0RF
Continued
metformin 500 mg Tablet
500 mg PO BID
atorvastatin 80 mg Tablet
80 mg PO DAILY
gabapentin 600 mg Tablet
600 mg PO TID
amlodipine 2.5 mg Tablet
2.5 mg PO DAILY
glimepiride 2 mg Tablet
2 mg PO DAILY
pantoprazole 40 mg Tablet,Delayed Release (Dr/Ec)
40 mg PO BID
benazepril 20 mg Tablet
20 mg PO BID
hydrochlorothiazide 25 mg Tablet
25 mg PO DAILY
Excedrin Migraine 250-250-65 mg Tablet
1 tab PO Q6 PRN (Reason: headaches)
ezetimibe 10 mg Tablet
10 mg PO DAILY
icosapent ethyl [Vascepa] 1 gram Capsule
2 g PO BID
aspirin 81 mg Tablet,Delayed Release (Dr/Ec)
81 mg PO DAILY
Discontinued
levofloxacin 500 mg Tablet
500 mg PO DAILY
Rx Instructions:
started 06/05
hydrocodone-acetaminophen
1 tab PO Q8 PRN (Reason: pain)
Discharge Orders:
Discharge Patient (As Directed); Ordered 06/13/24
Ordered By: Avinash Valentino
Discharge Date and Time
Discharge Date/Time: 06/13/24 14:03
Print Language: SWISS
[2024-06-13] MEDS: NOVOLOG FLEXPEN-MODERATE RESISTANCE SC (12:34)
--- NOTE | 2024-06-13 13:36 | PTCARENOTE ---
pt to be discharged this afternoon to [facility] via ambulance. pt belongings packed. pt to leave with R midline and IV abx. attempted to call report to [phone], no response to call. unable to leave voicemail.
[2024-06-13 13:43] VITALS: BP 132/87
== END 2024-06-13 14:03 | DRG 853 ==
LOC: 2 NORTH 21:44
PROVIDERS: Internal Medicine; Nurse Practitioner Gerontology; Physician Assistant; Registered Nurse; Student in an Organized Health Care Education/Training Program; ADMITTING PHYSICIAN Hospitalist; ATTENDING PHYSICIAN Internal Medicine; CONSULT PHYSICIAN Student in an Organized Health Care Education/Training Program; EMERGENCY PHYSICIAN Student in an Organized Health Care Education/Training Program; FAMILY PHYSICIAN Family Medicine
PROC: 0Y6R0Z2 Detachment at Right 2nd Toe, Mid, Open Approach (ICD-10-PCS; 2024-06-09)
DX: A41.02 Sepsis due to Methicillin resistant Staphylococcus aureus (principal); G93.41 Metabolic encephalopathy; M86.9 Osteomyelitis, unspecified; L97.411 Non-pressure chronic ulcer of right heel and midfoot limited to breakdown of skin; E11.628 Type 2 diabetes mellitus with other skin complications; L08.9 Local infection of the skin and subcutaneous tissue, unspecified; E11.610 Type 2 diabetes mellitus with diabetic neuropathic arthropathy; E11.621 Type 2 diabetes mellitus with foot ulcer; E11.69 Type 2 diabetes mellitus with other specified complication; I10 Essential (primary) hypertension; K21.9 Gastro-esophageal reflux disease without esophagitis; M14.671 Charcot's joint, right ankle and foot; R65.20 Severe sepsis without septic shock
CPT/HCPCS: 88305; 88311; 70450; 71045; 73630; 73718; 80048; 80202; 81003; 81015; 82805; 82962; 83036; 83605; 85025; 85027; 85652; 86140; 87040; 87070; 87075; 87147; 87150; 87186; 87205; 96361; 96365; 96366; 96375; 97116; 97162; 97167; 97530; 99285

== ENCOUNTER 2024-07-30 04:18 | Inpatient (IN) | payer MEDICARE, BC, SELFPAY ==
[2024-07-30] VITALS (9 sets, daily range): BP systolic 100–171; BP diastolic 62–90; BMI 27.2; BMI 27.3
--- NOTE | 2024-07-30 01:12 | ED.GENMED ---
History of Present Illness
General
Chief Complaint: Weakness
Source: patient, records and ambulance crew
Exam Limitations: none
Time Seen by Provider: 07/30/24 00:55
Nursing documentation reviewed up to this point in time: agreed with
History of Present Illness
History of Present Illness:
74-year-old male presents emergency room complaining of weakness. He was hospitalized for sepsis in May. He returned home from [employer] and reports worsening weakness.
Past History
Past History
ED Past Medical History: HTN, NIDDM and Other (Right toe diabetic foot ulcer)
ED Past Surgical History: Appendectomy
Social History
Tobacco: Non-smoker
Alcohol: None
Drug: None
Personal:
Living: with family
Employment: Retired
Review of Systems
Review of Systems
Allergies reviewed?: Yes
All Other Systems: Not applicable
Constitutional: Reports fever
EENT: Reports no symptoms
Respiratory: Reports no symptoms
Cardiac: Reports no symptoms
ABD/GI: Reports no symptoms
: Reports frequency
Musculoskeletal: Reports no symptoms
Skin: Reports no symptoms
Neurological: Reports weakness
Endocrine: Reports no symptoms
Hematologic/Lymphatic: Reports no symptoms
Psychiatric: Reports no symptoms
Phy Exam
Physical Exam
Physical Exam:
Physical Exam
General: Fever 103
Neck: supple. no meningeal signs. normal posterior pharynx
Heart: s1/s2 tachycardia, no murmur. equal radial
pulses.
HEENT: Pupils equal round reactive to light, EOMI
Lungs: no acute respiratory distress. clear bilaterally
Abdomen: normal bowel sounds. not tender. no CVAT
Neuro: alert and oriented. no focal neurological deficits cranial nerves II through XII intact
Skin: Erythema right foot
Psychiatric: well kept. interactive and cooperative
Extremities: no edema. no calf tenderness. negative homans. good distal pulses
Sepsis
Sepsis Screening
Sepsis Assessment: Sepsis
Sepsis Screen
Sepsis Screen: Sepsis
Date: 07/30/24
Time: 02:47
Course
Orders/Labs/Results
Orders:
Orders
07/30/24 00:58
IV Insert/Care/Rem.- Treatment PRN
07/30/24 00:59
CR Chest - 2 Views Urgent
Comment:
Reason For Exam: fever
07/30/24 01:03
Comprehensive Metabolic Panel Urgent
Blood Culture Q30M
NORMA Source: Blood/Venous
Specimen Description:
Blood Culture Q30M
NORMA Source: Blood/Venous
Specimen Description:
07/30/24 01:04
Complete Blood Count/With Diff Urgent
Lactic Acid Q4H
Comment: CANCEL 2nd LACTIC ACID IF 1st LACTIC ACID IS LESS THAN 2
07/30/24 01:10
Urinalysis Reflex To Culture Urgent
Date Specimen was Collected: 07/30/24
Time Specimen was Collected: 01:04
Urine Microscopic Reflex Cult Urgent
07/30/24 01:20
Acetaminophen [Tylenol] 650 mg PO NOW STA
07/30/24 02:15
Piperacillin/Tazo 4.5 Gram [Zosyn] 4.5 gram in 100 ml IV NOW
Vancomycin [Vancocin] 2,000 mg 0.9% Sodium Chloride 500 ml [Nss] 500 ml IV NOW
07/30/24 05:00
Lactic Acid Q4H
Comment: CANCEL 2nd LACTIC ACID IF 1st LACTIC ACID IS LESS THAN 2
Abnormal Lab Results
07/30/24 07/30/24 07/30/24
01:03 01:04 01:10
RBC 4.05 L 10^6/uL
(4.70-6.10)
Hgb 12.4 L g/dL
(13.0-18.0)
Hct 35.4 L %
(39.0-52.0)
Abs Immat Gran (auto) 0.1 H 10^3/uL
(0-0.05)
Absolute Neuts (auto) 7.5 H 10^3/uL
(1.4-6.5)
Absolute Lymphs (auto) 0.3 L 10^3/uL
(1.2-3.4)
Immature Gran % 0.6 H %
(0-0.5)
Neutrophils % 90.1 H %
(42.2-75.2)
Lymphocytes % 4.0 L %
(20.5-51.1)
Chloride 96 L mmol/L
(98-107)
BUN 31 H mg/dl
(9-20)
Glucose 280 H mg/dl
(70-99)
Lactic Acid 2.3 H mmol/L
(0.7-2.0)
Alkaline Phosphatase 129 H U/L
(38-126)
Ur Occult Blood Reflex Trace A
(Negative)
Urine Bacteria (Reflex) Few A
(Negative)
Urine Glucose 3+ A
(Negative)
07/30/24 01:04
07/30/24 01:03
Vital Signs
Initial and Last Documented VS:
Initial Vital Signs
Temp Pulse Resp BP Pulse Ox
101.1 F H 120 20 149/87 96
07/30/24 00:43 07/30/24 00:43 07/30/24 00:43 07/30/24 00:43 07/30/24 00:43
Last Documented Vital Signs
Temp Pulse Resp BP Pulse Ox
102.9 F H 120 20 149/87 96
07/30/24 01:15 07/30/24 00:43 07/30/24 00:43 07/30/24 00:43 07/30/24 00:43
MDM/Problems Addressed
Differential Diagnosis Includes:
Sepsis, UTI, cellulitis
MDM/Problems Addressed:
74-year-old male with sepsis, unclear etiology. Treat with Zosyn and vancomycin. Chest x-ray no acute findings
Chronic conditions affecting care: DM
Acute Exacerbation and/or Progression of Chronic Illness: DM
*Radiology
Radiology exam reviewed: preliminary read by ED provider (Chest x-ray no acute findings)
*Pulse Oximetry
Patient hypoxic: no
*Critical Care Note
Total Time (30-74mins, 75-104mins- exclusive of procedures): Not Applicable
Data Reviewed
Review of Other/Old Records Reveals: Progress Notes (Hospitalization in May, followed by infectious disease, patient had diabetic foot ulcer)
Source: records
Patient Management
Social determinants of health affecting care: Living situation and Strong social support
Discussion with other providers: Hospitalist
Escalation/DeEscalation of care consider admission/obs:
Admit indicated
ED Attending Note
-
Portions of this chart may have been created with voice recognition software.� Occasional wrong word or��sound alike� substitutions may have occurred due to the inherent limitations of voice recognition software.
Discharge Plan
Departure
Patient Disposition: Admit
Date of Disposition: 07/30/24
Time of Disposition: 02:12
Admit to: Telemetry
Presentation/result/management discussed w/ accepting MD/DO: Hospitalist
Patient with high blood pressure during this ER visit?: Yes
Condition: Fair
Discharge Problem:
Sepsis
Prescriptions:
No Action
metformin 500 mg Tablet
500 mg PO BID
atorvastatin 80 mg Tablet
80 mg PO DAILY
gabapentin 600 mg Tablet
600 mg PO TID
amlodipine 2.5 mg Tablet
2.5 mg PO DAILY
glimepiride 2 mg Tablet
2 mg PO DAILY
pantoprazole 40 mg Tablet,Delayed Release (Dr/Ec)
40 mg PO BID
benazepril 20 mg Tablet
20 mg PO BID
hydrochlorothiazide 25 mg Tablet
25 mg PO DAILY
Excedrin Migraine 250-250-65 mg Tablet
1 tab PO Q6 PRN (Reason: headaches)
ezetimibe 10 mg Tablet
10 mg PO DAILY
icosapent ethyl [Vascepa] 1 gram Capsule
2 g PO BID
aspirin 81 mg Tablet,Delayed Release (Dr/Ec)
81 mg PO DAILY
acetaminophen 325 mg Tablet
650 mg PO Q4HPRN PRN (Reason: DONAHUE/mild pain/temp > 100.4 F) Qty: 0 0RF
amoxicillin-pot clavulanate 875-125 mg Tablet
1 tab PO Q12 Qty: 0 0RF
oxycodone-acetaminophen 5-325 mg Tablet
1 tab PO Q4HPRN PRN (Reason: moderate pain) Qty: 12 0RF
vancomycin in 0.9 % sodium chl 1 gram/200 mL Piggyback
1 g IV Q12@0600,1800 Qty: 0 0RF
Interventions
Interventions:
*Risk Screen - Suicide Last Done: 07/30/24 00:43
*General Assessment Last Done: 07/30/24 00:43
*Neglect/Abuse Screening Last Done: 07/30/24 00:43
ED- Cardiac Assessment Last Done: 07/30/24 01:44
ED- Neurological Assessment Last Done: 07/30/24 01:44
ED- Pulmonary Assessment Last Done: 07/30/24 01:44
Discharge Date and Time
Print Language: [id number]
[2024-07-30 01:14] LABS: % Basophils 0.4 % (0-2); % Eosinophils 0.1 % (0-6); % Immature Granulocytes 0.6 % (0-0.5); % Monocytes 4.8 % (1.7-9.3); % Neutrophils 90.1 % (42.2-75.2); Absolute Immature Granulocytes 0.1 10^3/uL (0-0.05); Absolute Lymphocytes 0.3 10^3/uL (1.2-3.4); Absolute Monocytes 0.4 10^3/uL (0.1-0.6); Absolute Neutrophils 7.5 10^3/uL (1.4-6.5); Hematocrit 35.4 % (39.0-52.0); Hemoglobin 12.4 g/dL (13.0-18.0); Mean Corpuscular Hgb 30.6 pg (27.0-31.0); Mean Corpuscular Volume 87.4 fL (80.0-94.0); Mean Platelet Volume 9.8 fL (7.4-10.4); Nucleated Red Blood Cells % 0 % (-); Platelet Count 172 10^3/uL (130-400); Red Blood Cell Count 4.05 10^6/uL (4.70-6.10); Red Cell Dist. Width 13.2 % (11.5-14.5); White Blood Cell Count 8.3 10^3/uL (4.8-10.8)
[2024-07-30 01:36] LABS: ALT (SGPT) 20 U/L (0-50); AST (SGOT) 22 U/L (17-59); Albumin 4.4 g/dl (3.5-5.0); Alkaline Phosphatase 129 U/L (38-126); Blood Urea Nitrogen 31 mg/dl (9-20); Calcium 9.8 mg/dl (8.4-10.2); Carbon Dioxide 25 mmol/L (22-30); Chloride 96 mmol/L (98-107); Estimated Creatinine Clearance 49 ml/min; Glucose 280 mg/dl (70-99); Potassium 4.3 mmol/L (3.5-5.1); Sodium 137 mmol/L (135-145); Total Bilirubin 0.9 mg/dl (0.2-1.3); Total Protein 7.1 g/dl (6.3-8.2); eGFR 58.01
[2024-07-30] MEDS: TYLENOL 650 MG PO ×3 (01:54→22:17)
[2024-07-30 02:01] LABS: Urine Albumin Trace (Neg - Trace); Urine Bilirubin Negative (Negative); Urine Character Clear (Clear); Urine Color Yellow; Urine Glucose 3+ (Negative); Urine Ketone Negative (Negative); Urine Leukocyte Negative (Negative); Urine Nitrite Negative (Negative); Urine Occult Blood Trace (Negative); Urine Specific Gravity 1.015 (<1.030); Urine Urobilinogen Negative (Neg - 1+)
[2024-07-30 02:06] LABS: Lactic Acid 2.3 mmol/L (0.7-2.0)
[2024-07-30 02:26] LABS: Urine Amorphous Seen; Urine Bacteria Few (Negative); Urine Red Blood Cell 0-2 /HPF (0-2); Urine White Cell 0-2 /HPF (0-5)
[2024-07-30] MEDS: ZOSYN 100 IV (02:46)
--- NOTE | 2024-07-30 02:52 | HPS.HSE ---
Family Physician
-
Family Physician: Evelyn Briones
Chief Complaint
-
Fever and weakness
History of Present Illness
This is a 74-year-old male with past medical history of diabetes, foot infection with recent diabetic foot ulcer requiring amputation of the right second toe complicated by MRSA bacteremia, hypertension, hyperlipidemia, CVA with mild residual
right-sided weakness and GERD who presents to the emergency department with weakness and fever.
According to spouse who provided most of the history patient completed course of IV antibiotics prior to discharge from rehab. Is been in usual state of health up until about 3 to 4 days ago. He always has some swelling on his right foot due to
Charcot foot. However he has had more swelling recently. Patient does not describe any significant change in pain in that foot. They did see their primary care doctor 2 days ago who prescribed levofloxacin. Yesterday they saw second opinion who
felt given history of MRSA the patient should be on Bactrim. Ultimately patient had taken 2 doses of Bactrim. Did measured fevers at home to 102. He denied other symptoms such as cough or shortness of breath. He reports nausea and 1 episode of
emesis. Denies having any diarrhea. No urinary symptoms. He has mild worsening of generalized weakness more prominent on the right. No other focal deficits. He has no sick contacts. He suffered a recent laceration to the right foot just above
the ankles.
In the Emergency Department he was febrile to 1 2.9 �F, blood pressure was 150/87 with a pulse of 120. He was satting 96% on room air. Chest x-ray shows no acute infiltrates. White count was 8.3, hemoglobin and blood count were normal.
Electrolytes BUN and creatinine were within normal limits imaging from prior. UA was unremarkable.
Medical History
Past Medical History
Past Medical History: Reports CVA, GERD, HTN, Hypercholesterolemia and NIDDM
Additional Past Medical History:
Charcot foot
Diabetic foot ulcer
Bacteremia
Past Surgical History: Reports Appendectomy and Orthopedic (Right second toe partial amputation)
Social History
Tobacco: Non-smoker
Alcohol: None
Drug: None
Personal:
Living: With Family
Employment: Retired
Family History
Family History: Not pertinent
Allergies / Home Medications
Allergies reflects when Allergies were last updated in [employer].
Home Medications with original date entered in [employer]
Allergy/Medication List:
Allergies
Allergy/AdvReac Type Severity Reaction Status Date / Time
clindamycin Allergy Rash Verified 06/06/24 21:47
ibuprofen Allergy pt. states Verified 06/06/24 21:47
[From DayQuil Sinus had stroke
Pressure/Pain] day took it
perfume Allergy sinus Verified 06/06/24 21:47
problems
pseudoephedrine Allergy pt. states Verified 06/06/24 21:47
[From DayQuil Sinus had stroke
Pressure/Pain] day took it
tamsulosin Allergy pt. states Verified 06/06/24 21:47
severe
drop in BP
Home Medications
amlodipine 2.5 mg tablet 2.5 mg PO DAILY Blood Pressure 06/06/24
hspqzbw-yjbnqklwkieww-ygfqpxwt 250 mg-250 mg-65 mg tablet (Excedrin Migraine) 1 tab PO Q6 PRN headaches 06/06/24
atorvastatin 80 mg tablet 80 mg PO DAILY High Cholesterol 06/06/24
benazepril 20 mg tablet 20 mg PO BID Blood Pressure 06/06/24
ezetimibe 10 mg tablet 10 mg PO DAILY High Cholesterol 06/06/24
gabapentin 600 mg tablet 600 mg PO TID Neurological Condition 06/06/24
glimepiride 2 mg tablet 2 mg PO DAILY Diabetes 06/06/24
hydrochlorothiazide 25 mg tablet 25 mg PO DAILY Blood Pressure 06/06/24
icosapent ethyl 1 gram capsule (Vascepa) 2 g PO BID High Cholesterol 06/06/24
metformin 500 mg tablet 500 mg PO BID Diabetes 06/06/24
pantoprazole 40 mg tablet,delayed release 40 mg PO BID Gastrointestinal Issue 06/06/24
aspirin 81 mg tablet,delayed release 81 mg PO DAILY Blood Clot Prevention/Tx 06/08/24
acetaminophen 325 mg tablet 650 mg (2 x 325 mg) PO Q4HPRN PRN DONAHUE/mild pain/temp > 100.4 F #0 tabs 06/12/24
amoxicillin 875 mg-potassium clavulanate 125 mg tablet 1 tab PO Q12 #0 tabs 06/13/24
oxycodone-acetaminophen 5 mg-325 mg tablet 1 tab PO Q4HPRN PRN moderate pain #12 tabs 06/13/24
vancomycin 1 gram/200 mL in 0.9 % sod. chloride intravenous piggyback 1 g (200 mL) IV Q12@0600,1800 #0 mL 06/13/24
Review of Systems
-
History Source: Patient and Family
Constitutional: Reports Fever and Fatigue
EENT: Reports No Symptoms
Respiratory: Reports No Symptoms
Cardiac: Reports No Symptoms
Abdomen/GI: Reports Nausea and Vomiting
: Reports No Symptoms
Musculoskeletal: Reports Joint Swelling
Skin: Reports No Symptoms
Neurological: Reports No Symptoms
Endocrine: Reports No Symptoms
Psych: Reports No Symptoms
Physical Exam
Vital Signs
Vital Signs
Temp Pulse Resp BP Pulse Ox
102.9 F H 120 20 149/87 96
07/30/24 01:15 07/30/24 00:43 07/30/24 00:43 07/30/24 00:43 07/30/24 00:43
Physical Exam
General: Well Developed, Well Nourished and Fever
HEENT: NormoCephalic, Anicteric, Moist mucous membranes and Atraumatic
Respiratory: Clear
Cardiac: S1/S2 and Tachycardia
Breast: Deferred by me
GI: Soft, Non Tender, Normal Bowel Sounds and Distended
Rectal: Deferred by Provider
Genito-urinary: Deferred by me
Musculoskeletal: No Clubbing, No Cyanosis, Edema, Right Lower Extremity (trace) and Other (There is redness of the right foot extending to the ankles. There is edema with some tenderness to palpation. The foot feels quite hot to palpation up to
the mid shins. There is a small laceration of about 2 cm in the anterior right vazquez above the knee. Mild erythema. No drainage.)
Skin: Warm
Neuro: AO x 3
Hematologic/Lymphatic: No Lymphadenopathy
Psych: Calm
Laboratory Results
-
07/30/24 01:04
07/30/24 01:03
Laboratory Results
Lactic Acid 2.3 mmol/L (0.7-2.0) H 07/30/24 01:04
Total Bilirubin 0.9 mg/dl (0.2-1.3) 07/30/24 01:03
AST 22 U/L (17-59) 07/30/24 01:03
ALT 20 U/L (0-50) 07/30/24 01:03
Alkaline Phosphatase 129 U/L (38-126) H 07/30/24 01:03
Data Reviewed
-
Diagnostic Radiology: Image Personally Visualized and interpreted
Lab Data: Labs Reviewed by me
Old Records: Reviewed
Impression/Plan
-
IMPRESSION:
74 y.o male with diabetes and hypertension coming in with fever, weakness and right foot swelling and redness. Sepsis with likely soft tissue source from the right lower extremity. Cannot rule out recurrence of the osteomyelitis entirely.
PLAN:
1. Cellulitis - R leg non-purulent cellulitis with sepsis. No obvious fluid collection. Recent MRSA osteo in the right 2nd toe s/p amputation. He reports recent xrays of the foot by podiatry showing no acute abnormalities beside known joint
anomalies. Recurrent osteo possible from same area so low threshold for additional imaging.
- admit to med/surg
- blood cultures
- vancomcyin/cefepime
- give iv fluids in ED 1 L NS bolus and monitor
- check esr/crp. If markedly elevated, obtain R foot MRI
- pain control
2. DM II
- hold metformin
- continue glimepiride
- sliding scale insulin
3. HTN - SBP elevated but better controlled on current meds per family
- continue hctz 25 daily, norvasc 5 daily and benazepril 20 bid
4. CVA
- aspirin/atorvastin
DVT PPX - lovenox sq
Code status - full code
[2024-07-30] MEDS: VANCOCIN 540 MG IV (03:17)
[2024-07-30] MEDS: NSS 1000 IV (03:41)
[2024-07-30 05:19] LABS: Hematocrit 36.9 % (39.0-52.0); Mean Corp Hgb Conc. 35.2 g/dL (33.0-37.0); Mean Corpuscular Hgb 31.2 pg (27.0-31.0); Mean Corpuscular Volume 88.5 fL (80.0-94.0); Mean Platelet Volume 10.1 fL (7.4-10.4); Platelet Count 165 10^3/uL (130-400); Red Blood Cell Count 4.17 10^6/uL (4.70-6.10); Red Cell Dist. Width 13.3 % (11.5-14.5); White Blood Cell Count 7.4 10^3/uL (4.8-10.8)
[2024-07-30 05:41] LABS: Lactic Acid 2.1 mmol/L (0.7-2.0)
[2024-07-30 05:45] LABS: Blood Urea Nitrogen 29 mg/dl (9-20); Calcium 9.7 mg/dl (8.4-10.2); Carbon Dioxide 21 mmol/L (22-30); Chloride 100 mmol/L (98-107); Estimated Creatinine Clearance 53 ml/min; Glucose 241 mg/dl (70-99); Potassium 3.9 mmol/L (3.5-5.1); Sodium 136 mmol/L (135-145); eGFR > 60.00
[2024-07-30 08:05] LABS: Erythrocyte Sed Rate 52 mm/hour (0-20)
[2024-07-30 08:10] LABS: Glucose - Point of Care 241 mg/dl (70-99)
--- NOTE | 2024-07-30 08:13 | PHA.VAN.IN ---
Assessment
- Assessment
Renal Function: Unknown baseline
Maximum Temperature: 102.9 F - 07/30 01:15 - ORAL
Concomitant Antimicrobials: cefepime
- Previous Dosing Experience
Patient received multiple different regimens during prior admission in May 2024:
Vanc 750mg Q12H provided subtherapeutic peak (trough was not drawn correctly)
Regimen was adjusted to Vanc 1250mg Q12H:
Extrapolated Cmax (mcg/mL): 26.9 (peak drawn appropriately, ~2H after end of previous infusion)
Extrapolated Cmin (mcg/mL): 14.2 (trough drawn Appropriately)
Levels were drawn: At steady state (levels drawn after 3rd scheduled dose of new regimen)
Calculated AUC (mcg*h/mL): 480
Calculated ke: 0.0606
Calculated half life (H): 11.4
Calculated Vd (L): 86 (~1 L/kg)
Calculated Vanc CL (ml/min): 87
BUN = 16-18 on days of levels
SCR = 1.2-1.1 on days of levels
Regimen decreased to Vanc 1000mg Q12H due to potential for additional accumulation with SCR and borderline half-life. Q12H interval continued given half-life < 12H. Regimen predicted AUC 400, peak 22.5, trough 11.6 without additional accumulation
No repeat levels were obtained while patient was admitted. Outpatient monitoring unknown
AUC Dosing Plan
- Empiric Dosing
Initial / Loading Dose: 2000mg - 07/30 03:17
Maintenance Regimen: will tentatively start Vanc 1000mg Q12H at 1800 based on prior experience
SCR similar to prior experience
Patient with prior borderline half-life - may be slow to accumulate
- Monitoring
No levels ordered at this time: consider levels in next few days; follow renal function
Pharmacokinetics Vancomycin I
- -
Patient Age: 74
Patient Sex: Male
Vancomycin Day #: 1
Indication: Skin And Soft Tissue
Requesting Provider: Dr. Paulino
Pertinent Antimicrobial Allergies:
clindamycin - rash
Height / Weight:
Height 5 ft 8 in
Actual Weight 81.374 kg
Pertinent Past Medical History: DM
- Vital Signs / Lab Results
Temp Pulse Resp BP Pulse Ox
99.3 F 92 19 125/75 98
07/30/24 05:06 07/30/24 05:06 07/30/24 05:06 07/30/24 05:06 07/30/24 05:42
Lab Results - Hematology
07/30/24 07/30/24
01:04 05:08
WBC 8.3 7.4
Lab Results - Chemistry
07/30/24 07/30/24
01:03 05:08
BUN 31 H 29 H
Creatinine 1.3 1.2
Estimated Creat Clear 49 53
Albumin 4.4
07/30/24 07/30/24
01:04 05:08
Lactic Acid 2.3 H 2.1 H
Lab Results - Urine
07/30/24
01:10
Urine Nitrite (Reflex) Negative
Leukocyte Esterase Rfl Negative
Urine WBC (Reflex) 0-2
Ur Squamous Epith Cells 11-15
Urine Bacteria (Reflex) Few A
[2024-07-30] MEDS: ZETIA 10 MG PO (09:03)
[2024-07-30] MEDS: STERILE WATER FOR INJECTION 10 ML IV (09:03)
[2024-07-30] MEDS: NEURONTIN 600 MG PO ×3 (09:03→22:11)
[2024-07-30] MEDS: MAXIPIME 2000 MG IV (09:03)
[2024-07-30] MEDS: LIPITOR 80 MG PO (09:03)
[2024-07-30] MEDS: PROTONIX 40 MG PO ×2 (09:03→20:27)
[2024-07-30] MEDS: AMARYL 2 MG PO (09:03)
[2024-07-30] MEDS: ORETIC 25 MG PO (09:04)
[2024-07-30] MEDS: ASPIR LOW (ENTERIC COATED) 81 MG PO (09:04)
[2024-07-30] MEDS: NORVASC 5 MG PO (09:04)
[2024-07-30] MEDS: NOVOLOG FLEXPEN-LOW RESISTANCE 2 UNITS SC ×2 (09:04→17:37)
[2024-07-30] MEDS: ZESTRIL 20 MG PO ×2 (09:04→20:27)
--- NOTE | 2024-07-30 11:18 | CM ---
Reviewed the chart notes and spoke with the patient at the bedside. The patient resides with his spouse in a two story home with four steps to enter. The patient reports no DME in home. The patient has had [facility] and been to [facility] in the past. The
patient confirmed his pharmacy of choice is the [facility]. CM continues to be available to patient/family and is monitoring medical plan for needs at discharge.
Plan: Discharge plans will depend on the patient's progress.
--- NOTE | 2024-07-30 12:17 | CON.ID ---
Consultation
-
Date/Time Consultation Requested: July 30, 2024 0610
Date/Time Consultation Performed: July 30, 2024 1220
Requesting Provider: Dr. Jonatan Guevara
Performing Provider: Dr. Natalie Camp
Reason for Consultation: Sepsis, recent MRSA bacteremia and right foot osteo
Chief Complaint / Past History
Chief Complaint
Fever
History of Present Illness
74-year-old male with history of diabetes mellitus, Charcot foot who was recently hospitalized from June 14 to June 13, 2024 with sepsis, right second toe osteomyelitis, MRSA bacteremia x 2 sets. On June 09, he underwent partial
right second toe amputation. The bone was positive for MRSA. Pathology showed chronic osteomyelitis with necrosis; however no proximal margin bone in a container. Patient was evaluated by infectious disease Dr. Davis who recommended 2 weeks
of IV vancomycin which he completed on June 19, 2024. About 4 days ago he started feeling weak and unwell. Positive subjective fevers chills and sweats. Right foot slightly more swollen. He was prescribed levofloxacin 2 days ago. Antibiotic
was then changed to Bactrim due to history of MRSA. He had 2 doses of Bactrim. He he was febrile to 102 at home and therefore came to the ER today at 1 AM. Temperature was 101.1, peaked to 102.9. Lactic acid slightly elevated. White count
normal. He was started on vancomycin and cefepime. Patient denies headache, cough, shortness of breath, nausea vomiting, diarrhea, abdominal pain, dysuria, urinary frequency. No ill contacts. His pet cats tend to scratch his feet and ankles.
Past History
Additional Past Medical History:
Diabetes mellitus
Hypertension
Dyslipidemia
CVA
Charcot foot
MRSA bacteremia due to right second toe osteomyelitis status post 2 weeks vancomycin through 06/19/24.
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
Appendectomy
shoulder surgery
sinus surgery
Allergy History:
clindamycin Allergy (Verified 06/06/24 21:47)
Rash
ibuprofen [From DayQuil Sinus Pressure/Pain] Allergy (Verified 06/06/24 21:47)
pt. states had stroke day took it
perfume Allergy (Verified 06/06/24 21:47)
sinus problems
pseudoephedrine [From DayQuil Sinus Pressure/Pain] Allergy (Verified 06/06/24 21:47)
pt. states had stroke day took it
tamsulosin Allergy (Verified 06/06/24 21:47)
pt. states severe drop in BP
Medications Reviewed: Yes
Current Antibiotics:
Vancomycin
cefepime
Social History
Tobacco: Non-Smoker
Alcohol: None
Drug: None
Personal:
Family History
Family History: Not Pertinent
Review of Systems
Review of Systems
General: Fever, Chills and Change in Appetite
HEENT: Negative Sinus Problems, Headache or Pharyngitis
Cardiovascular: Negative Chest Pain or Dyspnea
Respiratory: Negative Dyspnea or Cough
Gasteroenterology: Negative Nausea, Vomiting or Diarrhea
Genital / Urological: Negative Dysuria or Flank Pain
Endocrine: Weakness and Fatigue
Skin / Hair / Nails: Negative Rash
Neurological: Negative Dizziness
All systems: All other systems were reviewed and were negative
Vital Signs
Temp Pulse Resp BP Pulse Ox
100.0 F 101 18 103/66 96
07/30/24 11:20 07/30/24 11:20 07/30/24 07:35 07/30/24 11:20 07/30/24 07:35
Selected Entries
07/30/24
01:15
Temp 102.9 F H
Physical Exam
Physical Exam
Constitutional: No Acute Distress
Head: Other (No frontal or max or sinus tenderness)
Eyes: No Conjunctival Hemorrhage and Sclera Anicteric
Cardiovascular: Regular Rate and S1/S2
Pulmonary: Clear
Gastrointestinal: Soft, Non Tender, Non Distended and Normal Bowel Sounds
Genito-Urinary: Negative CVA Tenderness
Extremities: Edema (Right foot 2+), Erythema (Right foot mild erythema, + warmth) and Other (Right second toe partial amp site unremarkable. )
Skin: Other (Few excorations dorsum of feet and right ankle)
Wound: Other
Lab / Diagnostic Study Results
07/30/24 05:08
07/30/24 05:08
Abs Immat Gran (auto) 0.1 10^3/uL (0-0.05) H 07/30/24 01:04
Absolute Neuts (auto) 7.5 10^3/uL (1.4-6.5) H 07/30/24 01:04
Absolute Lymphs (auto) 0.3 10^3/uL (1.2-3.4) L 07/30/24 01:04
Absolute Monos (auto) 0.4 10^3/uL (0.1-0.6) 07/30/24 01:04
Absolute Basos (auto) 0.0 10^3/uL (0-0.2) 07/30/24 01:04
Immature Gran % 0.6 % (0-0.5) H 07/30/24 01:04
Neutrophils % 90.1 % (42.2-75.2) H 07/30/24 01:04
Lymphocytes % 4.0 % (20.5-51.1) L 07/30/24 01:04
Monocytes % 4.8 % (1.7-9.3) 07/30/24 01:04
Eosinophils % 0.1 % (0-6) 07/30/24 01:04
Basophils % 0.4 % (0-2) 07/30/24 01:04
ESR 52 mm/hour (0-20) H 07/30/24 05:08
Lactic Acid 2.1 mmol/L (0.7-2.0) H 07/30/24 05:08
C-Reactive Protein 252.50 mg/L (0.0-10.00) H 07/30/24 05:08
Ur Squamous Epith Cells 11-15 /LPF (Few) 07/30/24 01:10
Microbiology Results
Micro:
07/30/24 01:03 Blood Culture - Pending
Blood/Venous
07/30/24 01:03 Blood Culture - Pending
Blood/Venous
07/30/24 CXR: No acute cardiopulmonary abnormality.
07/30/24 Right foot xray: No radiopaque foreign body. There is absence of the distal phalanx of the second toe with partial absence of the middle phalanx which may be postoperative in nature. Severe degenerative changes of the midfoot, similar in
appearance to prior and may represent Charcot foot.
Assessment / Plan
# Fever
# Suspect right Charcot foot cellulitis
# Recent hx MRSA bacteremia from Right 2nd toe osteo s/p partial amp, 2 weeks Vancomycin through 06/19/24.
-UA neg. CXR neg.
- Await blood cx's.
-Continue VAncomycin.
-DC cefepime.
- Trend temps.
# Conditions [employer]
Diabetes mellitus
Hypertension
Dyslipidemia
CVA
Charcot foot
MRSA bacteremia due to right second toe osteomyelitis status post 2 weeks vancomycin through 06/19/24.
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
Appendectomy
shoulder surgery
sinus surgery
[2024-07-30 12:25] LABS: Glucose - Point of Care 304 mg/dl (70-99)
[2024-07-30] MEDS: NOVOLOG FLEXPEN-LOW RESISTANCE 4 UNITS SC (13:00)
--- NOTE | 2024-07-30 13:05 | W.PN.HOSP.TC ---
Addendum entered and electronically signed by Jonatan Guevara DO 07/30/24 17:03:
Updated on the phone.
Original Note:
Today's Communication/Plan
-
Add basal/bolus insulin
Await ID input
Assessment / Plan
Assessment / Plan
Gen-AAOx3, NAD
HEENT-NC, AT, anicteric, clear oral mm
Neck-supple
CV-reg, no M, +S1/S2
Lungs-clear B/L
Abd-soft, NT, ND
Ext-no edema
Musculoskeletal-no cyanosis, clubbing, right forefoot erythema and mild edema, no tenderness to palpation, toes with good range of motion without pain
Skin-warm and dry
Neuro-grossly non-focal
Psych-calm, cooperative
Sepsis due to right foot cellulitis -hemodynamically stable. WBC count normal. Blood cultures pending. Continue antibiotics. ID consulted. Lactic acidosis due to sepsis.
Foot x-ray noted, no foreign body noted. Changes of Charcot foot noted.
Elevated inflammatory markers noted. Will discuss with ID service.
Recent right second toe osteomyelitis -right second toe resected 06/09/2024. Osteomyelitis complicated by MRSA bacteremia.
DM2 with hyperglycemia -hemoglobin A1c 8.2%. Glucose 241 this morning. Has never been on insulin before. At home he is on metformin 500 mg twice daily, glimepiride 2 mg daily. Would increase metformin dose and start basal/bolus insulin in the
hospital. Recommend diet, exercise, weight loss. Discussed with patient that poor glycemic control is likely contributing to recurrence of infection.
Essential hypertension -stable.
Hyperlipidemia -on atorvastatin, Vascepa, ezetimide.
GERD
Full code
Anticipated Discharge: > 48 hours
Subjective/Interval History
-
Date of Service: July 30, 2024
Patient seen and examined. Denies foot pain at rest, states it hurts when he weight bears.
Objective Data
-
Labs:
Laboratory Results
07/30/24 07/30/24 07/30/24
01:03 01:04 05:08
WBC 8.3 7.4
Hgb 12.4 L 13.0
Hct 35.4 L 36.9 L
Plt Count 172 165
Sodium 137 136
Potassium 4.3 3.9
Chloride 96 L 100
Carbon Dioxide 25 21 L
BUN 31 H 29 H
Creatinine 1.3 1.2
Glucose 280 H 241 H
Calcium 9.8 9.7
Total Bilirubin 0.9
AST 22
ALT 20
Alkaline Phosphatase 129 H
Vital Signs:
Vital Signs
Temp Pulse Resp BP Pulse Ox
100.0 F 101 18 103/66 96
07/30/24 11:20 07/30/24 11:20 07/30/24 07:35 07/30/24 11:20 07/30/24 07:35
I&O
07/29/24 07/30/24 07/31/24
06:59 06:59 06:59
Intake Total 480 / 480
Output Total 300 / 300
Balance 180 / 180
Review of Systems
-
History Source: Patient
All other systems: Reviewed and negative
[2024-07-30] MEDS: PERCOCET 5/325 1 TABLET PO (13:07)
[2024-07-30 16:47] LABS: Glucose - Point of Care 245 mg/dl (70-99)
[2024-07-30] MEDS: LOVENOX 40 MG SC (17:37)
[2024-07-30] MEDS: VANCOCIN 200 IV (17:37)
[2024-07-30] MEDS: NOVOLOG FLEXPEN 5 UNITS SC (17:37)
[2024-07-30 22:09] LABS: Glucose - Point of Care 215 mg/dl (70-99)
[2024-07-30] MEDS: LANTUS 0.12 UNITS SC (22:10)
[2024-07-30] MEDS: TYLENOL 325 MG PO (23:49)
[2024-07-31] MEDS: VANCOCIN 200 IV ×2 (05:06→17:29)
[2024-07-31 07:35] VITALS: BP 122/70
[2024-07-31 07:52] LABS: Glucose - Point of Care 192 mg/dl (70-99)
--- NOTE | 2024-07-31 08:21 | PHA.VAN.FU ---
Vancomycin Assessment / Plan
- Assessment
Renal Function: Stable
WBC's are: WNL
In the past 24 hrs, patient has been: Febrile
Concomitant Antimicrobials: cefepime
- Dosing Plan
Continue: Vanc 1000mg Q12H
- Monitoring Plan
Peak Level: 07/31 20:30
Trough Level: 08/01 05:30
Monitoring Comments: levels to be drawn after 3rd maintenance dose
- Follow Up
Pharmacy will continue to follow.
Vancomycin Follow UP
- -
Patient Age: 74
Patient Sex: Male
Vancomycin Day #: 2
Indication: Skin And Soft Tissue
Requesting Provider: Dr. Paulino
Pertinent Antimicrobial Allergies:
clindamycin - rash
Height / Weight:
Height 5 ft 8 in
Actual Weight 81.374 kg
Pertinent Past Medical History: DM
- Vital Signs / Lab Results
Temp Pulse Resp BP Pulse Ox
98.9 F 93 17 122/70 97
07/31/24 07:35 07/31/24 07:35 07/31/24 07:35 07/31/24 07:35 07/31/24 07:35
Lab Results - Hematology
07/30/24 07/30/24
01:04 05:08
WBC 8.3 7.4
Lab Results - Chemistry
07/30/24 07/30/24
01:03 05:08
BUN 31 H 29 H
Creatinine 1.3 1.2
Estimated Creat Clear 49 53
Albumin 4.4
07/30/24 07/30/24
01:04 05:08
Lactic Acid 2.3 H 2.1 H
Microbiology Results
07/30/24 01:03 Blood Culture - Preliminary
Blood/Venous No Growth in 24 hours- Final report to follow
07/30/24 01:03 Blood Culture - Preliminary
Blood/Venous No Growth in 24 hours- Final report to follow
[2024-07-31] MEDS: NOVOLOG FLEXPEN-LOW RESISTANCE 1 UNITS SC (08:38)
[2024-07-31] MEDS: LIPITOR 80 MG PO (08:39)
[2024-07-31] MEDS: PROTONIX 40 MG PO ×2 (08:39→20:29)
[2024-07-31] MEDS: NOVOLOG FLEXPEN 5 UNITS SC ×3 (08:39→17:34)
[2024-07-31] MEDS: ZETIA 10 MG PO (08:39)
[2024-07-31] MEDS: ORETIC 25 MG PO (08:39)
[2024-07-31] MEDS: ASPIR LOW (ENTERIC COATED) 81 MG PO (08:39)
[2024-07-31] MEDS: NEURONTIN 600 MG PO ×3 (08:39→22:07)
[2024-07-31] MEDS: NORVASC 5 MG PO (08:39)
[2024-07-31] MEDS: ZESTRIL 20 MG PO ×2 (08:40→20:29)
[2024-07-31] MEDS: PERCOCET 5/325 1 TABLET PO (08:58)
[2024-07-31 09:35] VITALS: BP 144/76; PULSE 79; O2SAT 98
[2024-07-31 09:45] VITALS: BP 144/76; PULSE 79; O2SAT 98
--- NOTE | 2024-07-31 10:48 | W.PN.HOSP.TC ---
Today's Communication/Plan
-
Continue antibx
Diabetes education consult
Assessment / Plan
Assessment / Plan
Gen-AAOx3, NAD
HEENT-NC, AT, anicteric, clear oral mm
Neck-supple
CV-reg, no M, +S1/S2
Lungs-clear B/L
Abd-soft, NT, ND
Ext-no edema
Musculoskeletal-no cyanosis, clubbing, right forefoot erythema and mild edema, no tenderness to palpation, toes with good range of motion without pain
Skin-warm and dry
Neuro-grossly non-focal
Psych-calm, cooperative
Sepsis due to right foot cellulitis -hemodynamically stable. WBC count normal. Blood cultures negative so far. Febrile last night. Continue antibiotics. ID consulted. Lactic acidosis due to sepsis. IV Vanco currently.
Foot x-ray noted, no foreign body noted. Changes of Charcot foot noted.
Elevated inflammatory markers noted.
Recent right second toe osteomyelitis -right second toe resected 06/09/2024. Osteomyelitis complicated by MRSA bacteremia.
DM2 with hyperglycemia -hemoglobin A1c 8.2%. Glucose 192 this morning. Has never been on insulin before. At home he is on metformin 500 mg twice daily, glimepiride 2 mg daily. Currently on Lantus 12u HS, Aspart 5u AC. He is open to using insulin
on discharge, consult diabetes education. He is a patient of Dr Colvin, endocrinology. Did not tolerate Mounjoro in the past due to side effects, abdominal pain.
Essential hypertension -stable.
Hyperlipidemia -on atorvastatin, Vascepa, ezetimide.
GERD
Full code
Anticipated Discharge: Within 24 hours
Subjective/Interval History
-
Date of Service: July 31, 2024
Patient seen and examined. No complaints.
Objective Data
-
Vital Signs:
Vital Signs
Temp Pulse Resp BP Pulse Ox
98.9 F 93 17 122/70 97
07/31/24 07:35 07/31/24 08:40 07/31/24 07:35 07/31/24 08:40 07/31/24 07:35
I&O
07/30/24 07/31/24 08/01/24
06:59 06:59 06:59
Intake Total 480 / 480 1200 / 1200
Output Total 300 / 300 1050 / 1050
Balance 180 / 180 150 / 150
Review of Systems
-
History Source: Patient
All other systems: Reviewed and negative
[2024-07-31 11:55] LABS: Glucose - Point of Care 301 mg/dl (70-99)
[2024-07-31] MEDS: NOVOLOG FLEXPEN-LOW RESISTANCE 4 UNITS SC (12:01)
--- NOTE | 2024-07-31 14:58 | W.PN.ID1 ---
Date of Service
Date of Service: July 31, 2024
Today's Communication
Continue Vancomycin.
Assessment / Plan
# Fever
# Suspect right Charcot foot cellulitis
# Recent hx MRSA bacteremia from Right 2nd toe osteo s/p partial amp, 2 weeks Vancomycin through 06/19/24.
-UA neg. CXR neg.
- blood cx's neg to date
-Continue VAncomycin.
- Trend temps.
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
Diabetes mellitus
Hypertension
Dyslipidemia
CVA
Charcot foot
MRSA bacteremia due to right second toe osteomyelitis status post 2 weeks vancomycin through 06/19/24.
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
Appendectomy
shoulder surgery
sinus surgery
Chief Complaint
-: Cellulitis
Subjective / Review of Systems
Jm alert today. He does feel better. Last night had fever and chills.
Vital Signs / Physical Exam
Vital Signs
Vital Signs
Temp Pulse Resp BP Pulse Ox
98.9 F 93 17 122/70 97
07/31/24 07:35 07/31/24 08:40 07/31/24 07:35 07/31/24 08:40 07/31/24 13:29
Physical Exam
Constitutional: No Acute Distress and Comfortable
Cardiovascular: Regular Rate and S1/S2
Pulmonary: Clear
Gastrointestinal: Soft, Non Tender and Non Distended
Extremities: Other (right foot edema and erythema decreased)
Neurological: Awake, Alert and AO x 3
Objective Data
Lab Data
Lab Results
07/30/24 05:08
07/30/24 05:08
ESR 52 mm/hour (0-20) H 07/30/24 05:08
Estimated Creat Clear 53 ml/min 07/30/24 05:08
Lactic Acid 2.1 mmol/L (0.7-2.0) H 07/30/24 05:08
Total Bilirubin 0.9 mg/dl (0.2-1.3) 07/30/24 01:03
AST 22 U/L (17-59) 07/30/24 01:03
ALT 20 U/L (0-50) 07/30/24 01:03
Alkaline Phosphatase 129 U/L (38-126) H 07/30/24 01:03
C-Reactive Protein 252.50 mg/L (0.0-10.00) H 07/30/24 05:08
Most recent labs reviewed.
Micro Results:
07/30/24 01:03 Blood Culture - Preliminary
Blood/Venous No Growth in 24 hours- Final report to follow
07/30/24 01:03 Blood Culture - Preliminary
Blood/Venous No Growth in 24 hours- Final report to follow
07/30/24 CXR: No acute cardiopulmonary abnormality.
07/30/24 Right foot xray: No radiopaque foreign body. There is absence of the distal phalanx of the second toe with partial absence of the middle phalanx which may be postoperative in nature. Severe degenerative changes of the midfoot, similar in
appearance to prior and may represent Charcot foot.
[2024-07-31 15:35] VITALS: BP 109/62
[2024-07-31] MEDS: LOVENOX 40 MG SC (17:29)
[2024-07-31 17:33] LABS: Glucose - Point of Care 281 mg/dl (70-99)
[2024-07-31] MEDS: NOVOLOG FLEXPEN-LOW RESISTANCE 3 UNITS SC (17:34)
[2024-07-31 21:29] LABS: Glucose - Point of Care 308 mg/dl (70-99)
[2024-07-31] MEDS: LANTUS 0.12 UNITS SC (22:07)
[2024-07-31] MEDS: NOVOLOG FLEXPEN 4 UNITS SC (22:33)
[2024-07-31 22:59] LABS: Vancomycin Peak 18.7 ug/ml (18-26)
[2024-07-31 23:26] VITALS: BP 128/76
[2024-08-01 02:33] LABS: Glucose - Point of Care 258 mg/dl (70-99)
[2024-08-01 06:58] LABS: Vancomycin Trough 12.4 ug/ml (5-20)
[2024-08-01 07:28] LABS: Glucose - Point of Care 247 mg/dl (70-99)
[2024-08-01] MEDS: VANCOCIN 200 IV (07:29)
[2024-08-01 07:35] VITALS: BP 111/61
[2024-08-01 07:50] LABS: Blood Urea Nitrogen 28 mg/dl (9-20); Estimated Creatinine Clearance 53 ml/min
--- NOTE | 2024-08-01 08:17 | W.PN.HOSP.TC ---
Today's Communication/Plan
-
Adjust insulin
Assessment / Plan
Assessment / Plan
Gen-AAOx3, NAD
HEENT-NC, AT, anicteric, clear oral mm
Neck-supple
CV-reg, no M, +S1/S2
Lungs-clear B/L
Abd-soft, NT, ND
Ext-no edema
Musculoskeletal-no cyanosis, clubbing, right forefoot erythema and mild edema, no tenderness to palpation, toes with good range of motion without pain
Skin-warm and dry
Neuro-grossly non-focal
Psych-calm, cooperative
Sepsis due to right foot cellulitis -sepsis resolved. Improved erythema of the right foot. WBC count normal. Blood cultures negative so far. Continue antibiotics. ID consulted. Lactic acidosis due to sepsis. IV Vanco currently.
Foot x-ray noted, no foreign body noted. Changes of Charcot foot noted.
Elevated inflammatory markers noted.
Recent right second toe osteomyelitis -right second toe resected 06/09/2024. Osteomyelitis complicated by MRSA bacteremia.
DM2 with hyperglycemia -hemoglobin A1c 8.2%. Glucose 247 this morning. Has never been on insulin before. At home he is on metformin 500 mg twice daily, glimepiride 2 mg daily. Currently on Lantus 12u HS, Aspart 5u AC. He is open to using insulin
on discharge, consult diabetes education. He is a patient of Dr Colvin, endocrinology. Did not tolerate Mounjoro in the past due to side effects, abdominal pain.
Increase Lantus to 15 units at bedtime, increase aspart to 8 units AC.
Essential hypertension -stable.
Hyperlipidemia -on atorvastatin, Vascepa, ezetimide.
GERD
Full code
Dispo -stable for discharge if okay with ID service. Await their input.
Anticipated Discharge: Today
Subjective/Interval History
-
Date of Service: August 01, 2024
Patient seen and examined. No complaints.
Objective Data
-
Labs:
Laboratory Results
08/01/24
05:44
BUN 28 H
Creatinine 1.2
Vital Signs:
Vital Signs
Temp Pulse Resp BP Pulse Ox
98.7 F 86 16 111/61 98
08/01/24 07:35 08/01/24 07:35 08/01/24 07:35 08/01/24 07:35 08/01/24 07:35
I&O
07/31/24 08/01/24 08/02/24
06:59 06:59 06:59
Intake Total 1200 / 1200 1660 / 1660
Output Total 1050 / 1050
Balance 150 / 150 1660 / 1660
Review of Systems
-
History Source: Patient
All other systems: Reviewed and negative
[2024-08-01] MEDS: NOVOLOG FLEXPEN-LOW RESISTANCE 2 UNITS SC (08:42)
[2024-08-01] MEDS: ASPIR LOW (ENTERIC COATED) 81 MG PO (08:44)
[2024-08-01] MEDS: NORVASC 5 MG PO (08:44)
[2024-08-01] MEDS: ZETIA 10 MG PO (08:44)
[2024-08-01] MEDS: PROTONIX 40 MG PO (08:44)
[2024-08-01] MEDS: LIPITOR 80 MG PO (08:44)
[2024-08-01] MEDS: ORETIC 25 MG PO (08:44)
[2024-08-01] MEDS: NEURONTIN 600 MG PO ×2 (08:45→17:03)
--- NOTE | 2024-08-01 08:46 | PHA.VAN.FU ---
Vancomycin Assessment / Plan
- Assessment
Renal Function: No New Labs Today (1.2>1.2 (no CBC today))
In the past 24 hrs, patient has been: Afebrile
- Assessment - Therapeutic Drug Monitoring
Extrapolated Cmax (mcg/mL): 24
Peak level was drawn: More than 3 hours after previous dose
Extrapolated Cmin (mcg/mL): 13
Trough Drawn: Appropriately
Levels were drawn: At steady state
Calculated AUC (mcg*h/mL): 421
Calculated ke: 0.0571
Calculated half life (H): 12
Calculated Vd (L): 83
Calculated Vanc CL (ml/min): 79
- Dosing Plan
Continue: Vancomycin 1000mg IV Q12hrs
- Monitoring Plan
No level(s) ordered at this time: Will continue to monitor and order levels according to vancomycin protocol
- Follow Up
Pharmacy will continue to follow.
Vancomycin Follow UP
- -
Patient Age: 74
Patient Sex: Male
Vancomycin Day #: 3
Indication: Skin And Soft Tissue
Requesting Provider: Dr. Paulino
Pertinent Antimicrobial Allergies:
clindamycin - rash
Height / Weight:
Height 5 ft 8 in
Actual Weight 81.374 kg
Pertinent Past Medical History: DM
- Vital Signs / Lab Results
Temp Pulse Resp BP Pulse Ox
98.7 F 86 16 111/61 98
08/01/24 07:35 08/01/24 07:35 08/01/24 07:35 08/01/24 07:35 08/01/24 07:35
Lab Results - Hematology
07/30/24 07/30/24
01:04 05:08
WBC 8.3 7.4
Lab Results - Chemistry
07/30/24 07/30/24 08/01/24
01:03 05:08 05:44
BUN 31 H 29 H 28 H
Creatinine 1.3 1.2 1.2
Estimated Creat Clear 49 53 53
Albumin 4.4
07/30/24 07/30/24
01:04 05:08
Lactic Acid 2.3 H 2.1 H
Microbiology Results
07/30/24 01:03 Blood Culture - Preliminary
Blood/Venous No Growth in 48 hours- Final report to follow
07/30/24 01:03 Blood Culture - Preliminary
Blood/Venous No Growth in 48 hours- Final report to follow
Therapeutic Drug Monitoring
Vancomycin Peak 18.7 ug/ml (18-26) 07/31/24 22:32
Vancomycin Trough 12.4 ug/ml (5-20) 08/01/24 05:44
[2024-08-01] MEDS: ZESTRIL 20 MG PO (08:48)
[2024-08-01] MEDS: NOVOLOG FLEXPEN SC (08:50)
--- NOTE | 2024-08-01 11:05 | W.PN.ID1 ---
Date of Service
Date of Service: August 01, 2024
Today's Communication
-Can transition Vancomycin to doxycycline 100mg po bid through 08/06/24.
Assessment / Plan
# Fever - resolved
# right Charcot foot cellulitis, improving
# Recent hx MRSA bacteremia from Right 2nd toe osteo s/p partial amp, 2 weeks Vancomycin through 06/19/24.
-UA neg. CXR neg.
- blood cx's neg to date
-Can transition Vancomycin to doxycycline 100mg po bid through 08/06/24.
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
Diabetes mellitus
Hypertension
Dyslipidemia
CVA
Charcot foot
MRSA bacteremia due to right second toe osteomyelitis status post 2 weeks vancomycin through 06/19/24.
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
Appendectomy
shoulder surgery
sinus surgery
Chief Complaint
-: Cellulitis
Subjective / Review of Systems
Feels well today.
Vital Signs / Physical Exam
Vital Signs
Vital Signs
Temp Pulse Resp BP Pulse Ox
98.7 F 86 16 111/61 98
08/01/24 07:35 08/01/24 08:48 08/01/24 07:35 08/01/24 08:48 08/01/24 07:35
Physical Exam
Constitutional: No Acute Distress and Comfortable
Gastrointestinal: Soft, Non Tender, Non Distended and Normal Bowel Sounds
Extremities: Other (Right foot erythema resolving, edema improving)
Objective Data
Lab Data
Lab Results
07/30/24 05:08
08/01/24 05:44
ESR 52 mm/hour (0-20) H 07/30/24 05:08
Estimated Creat Clear 53 ml/min 08/01/24 05:44
Lactic Acid 2.1 mmol/L (0.7-2.0) H 07/30/24 05:08
Total Bilirubin 0.9 mg/dl (0.2-1.3) 07/30/24 01:03
AST 22 U/L (17-59) 07/30/24 01:03
ALT 20 U/L (0-50) 07/30/24 01:03
Alkaline Phosphatase 129 U/L (38-126) H 07/30/24 01:03
C-Reactive Protein 252.50 mg/L (0.0-10.00) H 07/30/24 05:08
Most recent labs reviewed.
Micro Results:
07/30/24 01:03 Blood Culture - Preliminary
Blood/Venous No Growth in 48 hours- Final report to follow
07/30/24 01:03 Blood Culture - Preliminary
Blood/Venous No Growth in 48 hours- Final report to follow
07/30/24 CXR: No acute cardiopulmonary abnormality.
07/30/24 Right foot xray: No radiopaque foreign body. There is absence of the distal phalanx of the second toe with partial absence of the middle phalanx which may be postoperative in nature. Severe degenerative changes of the midfoot, similar in
appearance to prior and may represent Charcot foot.
Care Review
Plan reviewed with: Physician (Dr. Cheung)
[2024-08-01 12:02] LABS: Glucose - Point of Care 328 mg/dl (70-99)
[2024-08-01] MEDS: NOVOLOG FLEXPEN-LOW RESISTANCE 4 UNITS SC (12:24)
[2024-08-01] MEDS: NOVOLOG FLEXPEN 8 UNITS SC ×2 (12:24→17:04)
[2024-08-01] MEDS: VIBRAMYCIN 100 MG PO (12:25)
[2024-08-01 14:58] LABS: Calcium 9.5 mg/dl (8.4-10.2); Carbon Dioxide 23 mmol/L (22-30); Chloride 98 mmol/L (98-107); Glucose 232 mg/dl (70-99); Sodium 135 mmol/L (135-145)
[2024-08-01 15:06] VITALS: BP 146/82
--- NOTE | 2024-08-01 15:54 | W.DS.TRANS ---
DC Summary - [employer] Specialist
-
Discharge Instructions:
Discharge Diagnosis/Procedures Sepsis, Right foot cellulitis, uncontrolled
diabetes
Diet Diabetic, Carb Controlled
Activity As tolerated
Driving Restrictions As prior to admission
Bathing Restrictions None
Instructions:
Stand-Alone Forms:
Changes to Home Medications: No
Discharge Medications:
DC Medications w/original date entered in [facility]
sxfwfyh-mwaohgbmxtysq-eacxbfrp 250 mg-250 mg-65 mg tablet (Excedrin Migraine) 2 tab PO Q4H 06/06/24
atorvastatin 80 mg tablet 80 mg PO DAILY High Cholesterol 06/06/24
benazepril 20 mg tablet 20 mg PO BID Blood Pressure 06/06/24
ezetimibe 10 mg tablet 10 mg PO DAILY High Cholesterol 06/06/24
gabapentin 600 mg tablet 600 mg PO TID Neurological Condition 06/06/24
hydrochlorothiazide 25 mg tablet 25 mg PO DAILY Blood Pressure 06/06/24
icosapent ethyl 1 gram capsule (Vascepa) 2 g PO BID High Cholesterol 06/06/24
pantoprazole 40 mg tablet,delayed release 40 mg PO BID Gastrointestinal Issue 06/06/24
aspirin 81 mg tablet,delayed release 81 mg PO DAILY Blood Clot Prevention/Tx 06/08/24
acetaminophen 325 mg tablet 650 mg (2 x 325 mg) PO Q4HPRN PRN DONAHUE/mild pain/temp > 100.4 F #0 tabs 06/12/24
oxycodone-acetaminophen 5 mg-325 mg tablet 1 tab PO Q4HPRN PRN moderate pain #12 tabs 06/13/24
amlodipine 5 mg tablet 5 mg PO DAILY #30 tabs 08/01/24
blood sugar diagnostic (Accu-Chek Guide test strips) #100 ea 08/01/24
doxycycline hyclate 100 mg capsule 100 mg PO Q12 #12 caps 08/01/24
insulin aspart U-100 100 unit/mL (3 mL) subcutaneous pen 8 unit (0.08 mL) SC AC #15 mL 08/01/24
insulin glargine 100 unit/mL (3 mL) subcutaneous pen (Lantus Solostar U-100 Insulin) 15 unit (0.15 mL) SC QPM #15 mL 08/01/24
lancets (Accu-Chek Softclix Lancets) #200 ea 08/01/24
metformin 1,000 mg tablet 1,000 mg PO BID #60 tabs 08/01/24
pen needle, diabetic 32 gauge x 32' (BD Ultra-Fine Michelle Pen Needle) #200 ea 08/01/24
polyethylene glycol 3350 17 gram oral powder packet 17 g PO DAILYPRN PRN constipation #0 ea 08/01/24
Home Medication Changes
Pending Results: No
--- NOTE | 2024-08-01 16:40 | PN.DE ---
Diabetes Education
- -
Met with Mr. Oden for insulin instructions, A1C 8.7%. Pt was offered meter instructions and he declined stating that he already has a working meter at home. Pt was made aware of significance of high A1C in relation to uncontrolled diabetes and long
term complications.
Discussed action of both rapid acting and long acting insulin as well as symptoms and treatment of hypoglycemia, as he will be discharged on short acting and long acting insulin. Instructions on set up of insulin pen given with good return
demonstration. Pt is aware to check blood sugar before meals and inject rapid acting insulin in abdomen and eat in 10-20 minutes and Long acting insulin in outer thigh, rotating sites. He was also made aware to store insulin pens that are not in use
in the refrigerator. Discussed importance of checking blood sugar 4x/day to assess food/medication effect on his BS and to know the effect of the basal insulin on his blood sugars overnight, Pt verbalized understanding.
Provided information and handout on outpt education classes.
Pt will need RX at discharge for basal and bolus meal insulins as well as insulin pen needles.
Updates given to pt's Nurse and Hospitalist.
[2024-08-01 17:02] LABS: Glucose - Point of Care 266 mg/dl (70-99)
[2024-08-01] MEDS: NOVOLOG FLEXPEN-LOW RESISTANCE 3 UNITS SC (17:03)
[2024-08-01] MEDS: LOVENOX SC (17:26)
--- NOTE | 2024-08-01 18:19 | CM ---
Received request for [facility]. Faxed referral.
== END 2024-08-01 18:37 | disposition home health service (06) | DRG 872 ==
LOC: 2 NORTH 04:18
PROVIDERS: Student in an Organized Health Care Education/Training Program; ADMITTING PHYSICIAN Internal Medicine; ATTENDING PHYSICIAN Hospitalist; EMERGENCY PHYSICIAN Emergency Medicine; FAMILY PHYSICIAN Family Medicine; OTHER PHYSICIAN Internal Medicine Infectious Disease
DX: A41.9 Sepsis, unspecified organism (principal); I69.351 Hemiplegia and hemiparesis following cerebral infarction affecting right dominant side; L03.115 Cellulitis of right lower limb; E11.65 Type 2 diabetes mellitus with hyperglycemia; E11.610 Type 2 diabetes mellitus with diabetic neuropathic arthropathy; I10 Essential (primary) hypertension; S81.811A Laceration without foreign body, right lower leg, initial encounter; X58.XXXA Exposure to other specified factors, initial encounter; E78.00 Pure hypercholesterolemia, unspecified; K21.9 Gastro-esophageal reflux disease without esophagitis; Z89.421 Acquired absence of other right toe(s); Z79.82 Long term (current) use of aspirin; Z79.84 Long term (current) use of oral hypoglycemic drugs; Z79.899 Other long term (current) drug therapy; Z87.39 Personal history of other diseases of the musculoskeletal system and connective tissue; Z86.14 Personal history of Methicillin resistant Staphylococcus aureus infection; Z90.89 Acquired absence of other organs; Z88.1 Allergy status to other antibiotic agents; Z88.6 Allergy status to analgesic agent; Z88.8 Allergy status to other drugs, medicaments and biological substances
CPT/HCPCS: 71046; 73620; 80048; 80053; 80202; 81003; 81015; 82962; 83605; 85025; 85027; 85652; 86140; 87040; 96365; 96367; 97116; 97161; 97166; 99285

== ENCOUNTER 2024-08-24 17:04 | Inpatient (IN) | payer MEDICARE, BC, SELFPAY ==
[2024-08-24 14:21] VITALS: BP 106/57
[2024-08-24 15:20] VITALS: BP 106/58
[2024-08-24 15:31] LABS: % Basophils 0.2 % (0-2); % Eosinophils 0.5 % (0-6); % Immature Granulocytes 0.7 % (0-0.5); % Lymphocytes 11.1 % (20.5-51.1); % Monocytes 11.3 % (1.7-9.3); % Neutrophils 76.2 % (42.2-75.2); Absolute Eosinophils 0.1 10^3/uL (0-0.7); Absolute Immature Granulocytes 0.1 10^3/uL (0-0.05); Absolute Lymphocytes 1.1 10^3/uL (1.2-3.4); Absolute Monocytes 1.1 10^3/uL (0.1-0.6); Absolute Neutrophils 7.4 10^3/uL (1.4-6.5); Hematocrit 34.4 % (39.0-52.0); Hemoglobin 11.5 g/dL (13.0-18.0); Mean Corp Hgb Conc. 33.4 g/dL (33.0-37.0); Mean Corpuscular Hgb 30.5 pg (27.0-31.0); Mean Corpuscular Volume 91.2 fL (80.0-94.0); Mean Platelet Volume 10.1 fL (7.4-10.4); Nucleated Red Blood Cells % 0 % (-); Platelet Count 140 10^3/uL (130-400); Red Blood Cell Count 3.77 10^6/uL (4.70-6.10); Red Cell Dist. Width 13.8 % (11.5-14.5); White Blood Cell Count 9.8 10^3/uL (4.8-10.8)
--- NOTE | 2024-08-24 15:36 | ED.GENMED ---
History of Present Illness
General
Chief Complaint: Fever
Source: patient
Exam Limitations: none
Time Seen by Provider: 08/24/24 15:35
Nursing documentation reviewed up to this point in time: agreed with
History of Present Illness
History of Present Illness:
74-year-old male with history of HTN, HLD, IDDM, CVA, right Charcot foot, MRSA bacteremia due to right second toe osteomyelitis status post 2 weeks vancomycin through 06/19/24.
Right MRSA bacteremia second toe osteomyelitis s/p partial amputation (06/09/24), admitted 07/30 to 08/01 for due to right foot cellulitis, after vancomycin was DC'd with doxycycline 100 twice daily until 08/06/2024. Presents today as last night he
noted right lower leg and foot with more swelling and redness and warmth.
Earlier today had fever 101.0, took one Tylenol #4 and 2 Xtra strength Excedrin.
Has been on Insulin since last discharge with good blood sugars until today when it was highest at 207.
Past History
Past History
ED Past Medical History: HTN, NIDDM and Other (Right toe diabetic foot ulcer)
ED Past Surgical History: Appendectomy and Orthopedic
Social History
Tobacco: Non-smoker
Alcohol: None
Drug: None
Personal:
Living: with family
Employment: Retired
Review of Systems
Review of Systems
Allergies reviewed?: Yes
All Other Systems: ROS reviewed and negative except as documented in HPI and ROS
Constitutional: Reports fever and chills
Respiratory: Denies trouble breathing
Cardiac: Denies chest pain
ABD/GI: Denies abdominal pain, nausea, vomiting, diarrhea or anorexia
: Denies dysuria, frequency or difficulty voiding
Skin: Reports other (Redness, swelling, warmth right foot and lower leg)
Neurological: Reports other (neuropathy both feet)
Phy Exam
Physical Exam
Physical Exam:
GENERAL: No acute distress. A&Ox3.
CONSTITUTIONAL: Afebrile.
EYES:clear, conjunctivae normal
ENMT: moist mucus membranes, Pharynx nl
RESPIRATORY: Regular respirations, nonlabored, lungs clear.
CARDIOVASCULAR: Regular rate and rhythm, no murmurs, no rubs.
GI: Soft, nontender, normal BS
MUSCULOSKELETAL: Left lower leg and foot warm, erythematous and tender. Moves with ease. Well perfused.
SKIN: Warm, dry, pink
PSYCH: Normal mood and affect. Well kept, interactive and appropriate
NEUROLOGIC: Awake, alert and oriented. No focal neurological deficits
Sepsis
Sepsis Screening
Sepsis Assessment: Sepsis Ruled Out
Sepsis Screen
Sepsis Screen: Sepsis Ruled Out
Date: 08/24/24
Time: 23:35
Course
Orders/Labs/Results
Orders:
Orders
08/24/24 15:23
C-Reactive Protein Urgent
Comment: ADD ON
Complete Blood Count/With Diff Urgent
Comprehensive Metabolic Panel Urgent
Erythrocyte Sed Rate Urgent
Comment: ADD ON
Lactic Acid Urgent
Blood Culture Urgent
NORMA Source: Blood/Venous
Specimen Description:
08/24/24 16:21
Add On- LAB Urgent
Tests Added?: CRP, ESR
Foot, Right 3 View [CR Foot - Right Min 3 Views] Urgent
Comment:
Reason For Exam: pain, swelling, redness, Charcot Tooth hx
08/24/24 16:32
Admit/Transfer Patient As Directed
Co-Sign Provider:
Level of Care: Inpatient admission
Assign to:: Medical/Surgical
Physician / Group: vivek howard
Diagnosis: right lle foot cellulitis
Reason for Hospitalization: right lle foot cellulitis
Expected length of stay greater than two midnights?: Yes
ELOS- Estimated Length of Stay in days: 3
I certify the patient meets the requirements for IP care: Yes
08/24/24 16:33
Blood Culture Q30M
NORMA Source: Blood/Venous
Specimen Description:
08/24/24 16:39
PRN Pain Medication Management As Directed
May give lesser potent ordered pain med per pt: Yes
preference::
Protocol:: Medication orders for pain may be administered in a
manner that supports deferring to patient preference
when the pt is:
- Requesting an ordered lesser potent pain medication.
Least to most potent pain medications are defined
as: acetaminophen < NSAID < tramadol < opioids
(morphine, oxycodone, hydromorphone).
- Requesting a lesser dose of the same medication IF
ORDERED.
- Requesting a less intrusive route of administration
if both routes are prescribed by the provider (PO <
IV).
08/24/24 16:40
Venous Doppler Lwr Ext Rt [US Perip Venous LOWER Ext RT] Urgent
Comment:
Reason For Exam: dvt r/o
08/24/24 16:45
Blood Culture Q30M
NORMA Source: Blood/Venous
Specimen Description:
08/24/24 16:55
Code Status As Directed
Resuscitation Status: Full Code
08/24/24 17:06
Acetaminophen [Tylenol] 650 mg PO Q4HPRN PRN
Oxycodone/Acetaminophen [Percocet 5/325] 1 tablet PO Q4HPRN PRN
Polyethylene Glycol Powder [Miralax] 17 grams PO DAILYPRN PRN
08/24/24 17:06
DX Deep Vein Thrombosis Video Routine
08/24/24 18:00
Cefepime HCl [Maxipime] 1,000 mg IV Q8H
08/24/24 19:00
Enoxaparin Sodium [Lovenox] 40 mg SC QPM
08/24/24 20:00
Lisinopril [Zestril] 20 mg PO BID
Pantoprazole [Protonix] 40 mg PO BID
icosapent ethyl [Vascepa] 2 grams PO BID
08/24/24 22:00
Gabapentin [Neurontin] 600 mg PO TID
08/25/24 06:00
Basic Metabolic Panel IN AM
Complete Blood Count/No Diff IN AM
08/25/24 07:30
Insulin Aspart Pen [Novolog Flexpen] 8 units SC AC
08/25/24 08:00
Amlodipine [Norvasc] 5 mg PO DAILY
Atorvastatin [Lipitor] 80 mg PO DAILY
Ezetimibe [Zetia] 10 mg PO DAILY
08/26/24 06:00
Basic Metabolic Panel IN AM
Complete Blood Count/No Diff IN AM
08/27/24 06:00
Basic Metabolic Panel IN AM
Complete Blood Count/No Diff IN AM
08/28/24 06:00
Basic Metabolic Panel IN AM
Complete Blood Count/No Diff IN AM
08/29/24 06:00
Basic Metabolic Panel IN AM
Complete Blood Count/No Diff IN AM
08/30/24 06:00
Basic Metabolic Panel IN AM
Complete Blood Count/No Diff IN AM
Abnormal Lab Results
08/24/24
15:23
RBC 3.77 L 10^6/uL
(4.70-6.10)
Hgb 11.5 L g/dL
(13.0-18.0)
Hct 34.4 L %
(39.0-52.0)
Abs Immat Gran (auto) 0.1 H 10^3/uL
(0-0.05)
Absolute Neuts (auto) 7.4 H 10^3/uL
(1.4-6.5)
Absolute Lymphs (auto) 1.1 L 10^3/uL
(1.2-3.4)
Absolute Monos (auto) 1.1 H 10^3/uL
(0.1-0.6)
Immature Gran % 0.7 H %
(0-0.5)
Neutrophils % 76.2 H %
(42.2-75.2)
Lymphocytes % 11.1 L %
(20.5-51.1)
Monocytes % 11.3 H %
(1.7-9.3)
ESR 26 H mm/hour
(0-20)
Sodium 132 L mmol/L
(135-145)
Chloride 97 L mmol/L
(98-107)
BUN 31 H mg/dl
(9-20)
Glucose 259 H mg/dl
(70-99)
C-Reactive Protein 89.40 H mg/L
(0.0-10.00)
Total Protein 5.8 L g/dl
(6.3-8.2)
08/24/24 15:23
08/24/24 15:23
Vital Signs
Initial and Last Documented VS:
Initial Vital Signs
Temp Pulse Resp BP Pulse Ox
98.2 F 87 16 106/57 98
08/24/24 14:21 08/24/24 14:21 08/24/24 14:21 08/24/24 14:21 08/24/24 14:21
Last Documented Vital Signs
Temp Pulse Resp BP Pulse Ox
99.6 F 97 20 147/96 97
08/24/24 20:30 08/24/24 20:30 08/24/24 20:30 08/24/24 20:30 08/24/24 17:55
MDM/Problems Addressed
MDM/Problems Addressed:
74-year-old male with history of HTN, HLD, IDDM, CVA, right Charcot foot, MRSA bacteremia due to right second toe osteomyelitis status post 2 weeks vancomycin through 10/3/24.
Right MRSA bacteremia second toe osteomyelitis s/p partial amputation (06/09/24), admitted 07/30 to 08/01 for due to right foot cellulitis, after vancomycin was DC'd with doxycycline 100 twice daily until 08/06/2024. Presents today as last night he
noted right lower leg and foot with more swelling and redness and warmth.
Earlier today had fever 101.0, took one Tylenol #4 and 2 Xtra strength Excedrin.
Has been on Insulin since last discharge with good blood sugars until today when it was highest at 207.
Afebrile, NAD
1600:
CBC with no clinically significant abnormality
CMP: BUN 31, glucose 259 otherwise unremarkable
CRP:89.40
Sed rate 26
xray right foot radiology report read: Advanced chronic foot deformity, as described, consistent with neuropathic arthrosis, appearing relatively stable compared to prior examination. Mild to moderate soft tissue swelling. No subcutaneous emphysema.
Plan: Admit: Cellulitis right foot
Hospitalist notified of admission.
*Critical Care Note
Total Time (30-74mins, 75-104mins- exclusive of procedures): Not Applicable
ED Attending Note
-
Portions of this chart may have been created with voice recognition software.� Occasional wrong word or��sound alike� substitutions may have occurred due to the inherent limitations of voice recognition software.
Discharge Plan
Departure
Patient Disposition: Admit
Date of Disposition: 08/24/24
Time of Disposition: 16:07
Admit to: Med/Surg
Presentation/result/management discussed w/ accepting MD/DO: Hospitalist
Condition: Fair
Discharge Problem:
Cellulitis of right lower extremity, Type 2 diabetes mellitus with hyperglycemia, Charcot's joint, right ankle and foot
Interventions
Interventions:
*Risk Screen - Suicide Last Done: 08/24/24 14:21
*General Assessment Last Done: 08/24/24 14:21
*Neglect/Abuse Screening Last Done: 08/24/24 14:21
*ED COVID-19 Vaccine History Last Done: 08/24/24 15:27
ED- Neurological Assessment Last Done: 08/24/24 15:34
ED-Skin Assessment Last Done: 08/24/24 15:34
[2024-08-24 15:41] LABS: Lactic Acid 1.6 mmol/L (0.7-2.0)
[2024-08-24 15:48] LABS: ALT (SGPT) 20 U/L (0-50); AST (SGOT) 20 U/L (17-59); Albumin 3.7 g/dl (3.5-5.0); Alkaline Phosphatase 116 U/L (38-126); Blood Urea Nitrogen 31 mg/dl (9-20); Carbon Dioxide 25 mmol/L (22-30); Chloride 97 mmol/L (98-107); Glucose 259 mg/dl (70-99); Potassium 4.4 mmol/L (3.5-5.1); Sodium 132 mmol/L (135-145); Total Bilirubin 0.7 mg/dl (0.2-1.3); Total Protein 5.8 g/dl (6.3-8.2); eGFR > 60.00
[2024-08-24 16:00] VITALS: BP 118/61
--- NOTE | 2024-08-24 16:14 | W.PN.UPDATE ---
Addendum entered and electronically signed by Nathan Iyer MD 08/24/24 18:29:
WRONG ENTRY
T<del>his</del> <del>note</del> <del>serves</del> <del>as</del> <del>an</del> <del>addendum</del> <del>to</del> <del>the</del> <del>H&P</del> <del>by</del> <del>chemical equipment sales engineer</del> <del>JOSE DAVID</del> <del>Sara</del> <del>[place]</del>
<del>HPI</del>
<del>89F</del> <del>Former</del> <del>smoker</del> <del>,</del> <del>HX</del> <del>TIA,</del> <del>Prx</del> <del>AF,</del> <del>HTN,</del> <del>HLD,</del> <del>T2DM,</del> <del>Rt</del> <del>mastectomy</del> <del>for</del> <del>thickening</del>
<del>but</del> <del>NEG</del> <del>for</del> <del>malignancy</del> <del>seen</del> <del>at</del> <del>ER</del>
<del>-</del> <del>around</del> <del>10</del> <del>AM</del> <del>daughter</del> <del>noted</del> <del>sudden</del> <del>difficulty</del> <del>ffinding</del> <del>words</del> <del>out</del> <del>which</del> <del>is</del> <del>very</del>
<del>unusual</del> <del>for</del> <del>her.</del>
<del>-</del> <del>this</del> <del>morning</del> <del>she</del> <del>tried</del> <del>to</del> <del>dial</del> <del>a</del> <del>neighbor's</del> <del>phone</del> <del>number</del> <del>and</del> <del>did</del> <del>not</del> <del>remember</del>
<del>how</del> <del>to</del> <del>push</del> <del>the</del> <del>buttons</del> <del>in.</del>
<del>-</del> <del>Patient</del> <del>states</del> <del>that</del> <del>her</del> <del>symptoms</del> <del>have</del> <del>improved</del> <del>but</del> <del>she</del> <del>is</del> <del>still</del> <del>having</del> <del>some</del>
<del>difficulty</del> <del>getting</del> <del>words</del> <del>out.</del>
<del>ROS:</del>
<del>-</del> <del>denies</del> <del>headache</del> <del>and</del> <del>vision</del> <del>changes.</del>
<del>-</del> <del>weakness</del> <del>and</del> <del>tingling</del> <del>in</del> <del>her</del> <del>right</del> <del>arm.</del>
<del>-</del> <del>denies</del> <del>any</del> <del>difficulty</del> <del>swallowing</del> <del>or</del> <del>walking.</del>
<del>-</del> <del>denies</del> <del>dizziness</del> <del>or</del> <del>vision</del> <del>changes.</del>
<del>Stable</del> <del>VSS</del>
<del>Vital</del> <del>Signs</del>
<del>Temp</del> <del>Pulse</del> <del>Resp</del> <del>BP</del> <del>Pulse</del> <del>Ox</del>
<del>98.6</del> <del>F</del> <del>87</del> <del>16</del> <del>118/61</del> <del>98</del>
<del>08/24/24</del> <del>15:33</del> <del>08/24/24</del> <del>14:21</del> <del>08/24/24</del> <del>16:04</del> <del>08/24/24</del> <del>16:00</del> <del>08/24/24</del> <del>14:21</del>
<del>PE</del>
<del>Obese</del>
<del>Gen:</del> <del>NAD,</del> <del>conversant</del> <del>,</del> <del>nl</del> <del>volume</del> <del>and</del> <del>nl</del> <del>speed</del> <del>of</del> <del>speech,</del> <del>anxious</del>
<del>HEENT:</del> <del>anicteric</del>
<del>Neck:</del> <del>supple</del> <del>.</del> <del>No</del> <del>bruit</del>
<del>Lungs:</del> <del>CTA</del>
<del>Cor:</del> <del>RRR</del> <del>S1</del> <del>S2</del>
<del>Abdomen:</del> <del>soft</del> <del>benign</del>
<del>EMERGENCY VEHICLE DRIVER:</del> <del>AAO3</del> <del>NFND</del>
<del>MS:</del> <del>No</del> <del>edema</del>
<del>Psych:</del> <del>appropriate</del>
<del>Data</del>
<del>Abnormal</del> <del>Lab</del> <del>Results</del>
<del>08/24/24</del>
<del>15:23</del>
<del>RBC</del> <del>3.77</del> <del>L</del>
<del>Hgb</del> <del>11.5</del> <del>L</del>
<del>Hct</del> <del>34.4</del> <del>L</del>
<del>Abs</del> <del>Immat</del> <del>Gran</del> <del>(auto)</del> <del>0.1</del> <del>H</del>
<del>Absolute</del> <del>Neuts</del> <del>(auto)</del> <del>7.4</del> <del>H</del>
<del>Absolute</del> <del>Lymphs</del> <del>(auto)</del> <del>1.1</del> <del>L</del>
<del>Absolute</del> <del>Monos</del> <del>(auto)</del> <del>1.1</del> <del>H</del>
<del>Immature</del> <del>Gran</del> <del>%</del> <del>0.7</del> <del>H</del>
<del>Neutrophils</del> <del>%</del> <del>76.2</del> <del>H</del>
<del>Lymphocytes</del> <del>%</del> <del>11.1</del> <del>L</del>
<del>Monocytes</del> <del>%</del> <del>11.3</del> <del>H</del>
<del>Sodium</del> <del>132</del> <del>L</del>
<del>Chloride</del> <del>97</del> <del>L</del>
<del>BUN</del> <del>31</del> <del>H</del>
<del>Glucose</del> <del>259</del> <del>H</del>
<del>Total</del> <del>Protein</del> <del>5.8</del> <del>L</del>
<del>Head</del> <del>CT:</del> <del>Stable</del> <del>examination.</del> <del>No</del> <del>acute</del> <del>intracranial</del> <del>abnormality</del> <del>appreciated</del>
<del>EKG:</del> <del>NORMAL</del> <del>SINUS</del> <del>RHYTHM</del>
<del>ECHO</del> <del>05/11/18:</del> <del>EF</del> <del>55-60%,</del> <del>normal</del> <del>wall</del> <del>motion,</del> <del>normal</del> <del>diastolic</del> <del>function</del>
<del>Last</del> <del>hospitalist</del> <del>admission:</del> <del>DATE</del> <del>OF</del> <del>ADMISSION:</del> <del>06/30/2018</del> <del>-</del> <del>DATE</del> <del>OF</del> <del>DISCHARGE:</del> <del>07/08/2018</del>
<del>FINAL</del> <del>DIAGNOSES:</del>
<del>1.</del> <del>Perforated</del> <del>viscus,</del> <del>most</del> <del>likely</del> <del>duodenal</del> <del>ulcer.</del>
<del>2.</del> <del>Acute</del> <del>ileus</del> <del>from</del> <del>above.</del>
<del>3.</del> <del>Hcf-mmhqgcj-xpixqgzqn</del> <del>diabetes</del> <del>mellitus.</del>
<del>4.</del> <del>Paroxysmal</del> <del>atrial</del> <del>fibrillation.</del>
<del>5.</del> <del>Anemia</del> <del>requiring</del> <del>one</del> <del>unit</del> <del>packed</del> <del>red</del> <del>blood</del> <del>cell</del> <del>transfusion.</del>
<del>6.</del> <del>Pleural</del> <del>effusion.</del>
<del>ASSESSMENT</del> <del>&</del> <del>PLAN</del>
<del>Evaluate</del> <del>for</del> <del>TIA/CVA</del> <del>ref</del> <del>to</del> <del>acute</del> <del>onset</del> <del>difficulty</del> <del>word</del> <del>finding</del> <del>and</del> <del>transient</del> <del>constructional</del>
<del>apraxia</del>
<del>HX</del> <del>hyperlipidemia</del> <del>on</del> <del>statin</del>
<del>-</del> <del>Baby</del> <del>ASA</del>
<del>-</del> <del>continue</del> <del>WORD PROCESSOR TECHNICIAN</del> <del>Rosuvastatin</del>
<del>-</del> <del>Lipids,</del> <del>A1</del> <del>C</del>
<del>-</del> <del>ECHO</del>
<del>-</del> <del>Bran</del> <del>MRI</del> <del>in</del> <del>AM</del>
<del>-</del> <del>Neuro</del> <del>consulted</del>
<del>Benign</del> <del>HTN</del>
<del>-</del> <del>continue</del> <del>atenolol,</del> <del>and</del> <del>HCTZ</del>
<del>Anxiety</del>
<del>-</del> <del>continue</del> <del>PRN</del> <del>lorazepam</del>
<del>Hyperglycemia</del> <del>with</del> <del>random</del> <del>BS</del> <del>235</del>
<del>Suspect</del> <del>uncontrol,</del> <del>DM</del>
<del>DMT2</del> <del>diet</del> <del>controlled</del> <del>at</del> <del>home</del>
<del>-</del> <del>pending</del> <del>A1C</del>
<del>-</del> <del>add</del> <del>ISS</del> <del>low</del>
<del>HX</del> <del>right</del> <del>breast</del> <del>cancer</del>
<del>H</del> <del>diverticulitis</del>
<del>DVT</del> <del>Px:</del> <del>SCDs</del>
<del>Full</del> <del>code</del>
<del>Obs</del> <del>TLM</del>
<del>Dictated</del> <del>By:</del> <del>Htay</del> <del>MD,Nathan</del>
<del>Dictated</del> <del>Date</del> <del>&</del> <del>Time:</del> <del>08/24/24</del> <del>1614</del>
<del>Co-Signer:</del>
<del>Co-Sign</del> <del>Date</del> <del>&</del> <del>Time:</del>
<del>Signed</del> <del>By:</del> <del>Htay</del> <del>MD,Nathan</del>
<del>Signed</del> <del>Date</del> <del>&</del> <del>Time:</del> <del>08/24/24</del> <del>1617</del>
<del><<Signature</del> <del>on</del> <del>File>></del>
<del>Dictation</del> <del>Date/Time:</del> <del>08/24/24</del> <del>1614</del>
<del>Court Advocate</del> <del>Date/Time:</del> <del>08/24/24</del> <del>1614</del>
<del>Transcribed</del> <del>By:</del> <del>HTAYSO</del>
<del>cc:</del>
Original Note:
Update Note
Progress Note Update
This note serves as an addendum to the H&P by chemical equipment sales engineer JOSE DAVID Sara Mauricio
HPI
89F Former smoker , HX TIA, Prx AF, HTN, HLD, T2DM, Rt mastectomy for thickening but NEG for malignancy seen at ER
- around 10 AM daughter noted sudden difficulty ffinding words out which is very unusual for her.
- this morning she tried to dial a neighbor's phone number and did not remember how to push the buttons in.
- Patient states that her symptoms have improved but she is still having some difficulty getting words out.
ROS:
- denies headache and vision changes.
- weakness and tingling in her right arm.
- denies any difficulty swallowing or walking.
- denies dizziness or vision changes.
Stable VSS
Vital Signs
Temp Pulse Resp BP Pulse Ox
98.6 F 87 16 118/61 98
08/24/24 15:33 08/24/24 14:21 08/24/24 16:04 08/24/24 16:00 08/24/24 14:21
PE
Obese
Gen: NAD, conversant , nl volume and nl speed of speech, anxious
HEENT: anicteric
Neck: supple . No bruit
Lungs: CTA
Cor: RRR S1 S2
Abdomen: soft benign
EMERGENCY VEHICLE DRIVER: AAO3 NFND
MS: No edema
Psych: appropriate
Data
Abnormal Lab Results
08/24/24
15:23
RBC 3.77 L
Hgb 11.5 L
Hct 34.4 L
Abs Immat Gran (auto) 0.1 H
Absolute Neuts (auto) 7.4 H
Absolute Lymphs (auto) 1.1 L
Absolute Monos (auto) 1.1 H
Immature Gran % 0.7 H
Neutrophils % 76.2 H
Lymphocytes % 11.1 L
Monocytes % 11.3 H
Sodium 132 L
Chloride 97 L
BUN 31 H
Glucose 259 H
Total Protein 5.[address]: Stable examination. No acute intracranial abnormality appreciated
EKG: NORMAL SINUS RHYTHM
ECHO 05/11/18: EF 55-60%, normal wall motion, normal diastolic function
Last hospitalist admission: DATE OF ADMISSION: 06/30/2018 - DATE OF DISCHARGE: 07/08/2018
FINAL DIAGNOSES:
1. Perforated viscus, most likely duodenal ulcer.
2. Acute ileus from above.
3. Qlo-glydhxs-hofeixkwa diabetes mellitus.
4. Paroxysmal atrial fibrillation.
5. Anemia requiring one unit packed red blood cell transfusion.
6. Pleural effusion.
ASSESSMENT & PLAN
Evaluate for TIA/CVA ref to acute onset difficulty word finding and transient constructional apraxia
HX hyperlipidemia on statin
- Baby ASA
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
- Lipids, A1 C
- ECHO
- Bran MRI in AM
- Neuro consulted
Benign HTN
- continue atenolol, and HCTZ
Anxiety
- continue PRN lorazepam
Hyperglycemia with random BS 235
Suspect uncontrol, DM
DMT2 diet controlled at home
- pending A1C
- add ISS low
HX right breast cancer
H diverticulitis
DVT Px: SCDs
Full code
Obs TLM
[2024-08-24 16:50] LABS: Erythrocyte Sed Rate 26 mm/hour (0-20)
--- NOTE | 2024-08-24 16:55 | HPS.HSE ---
Family Physician
-
Family Physician: Rachid Luther
Chief Complaint
-
right foot swelling, fever at home
History of Present Illness
74 M hx of cva, gerd, htn, bph, hld, iddm, charcot foot with recent diabetic toe infection s/p partial resection/mssa bacteremia at that time. Now presenting with a 1.5day hisotry of right lower extremity wamrth, swelling and redness. No drainage
from the right LE noted. At home at a temp of 101, improved after taking tylenol, no fever since
In the ED: CBC unremarkable apart from normocytic anmeia, BMP with a Na of 132, hemodynamcially stable with a sugar of 259.
Past Surgical History: Reports Appendectomy and Orthopedic (Right second toe partial amputation)
Social hx: nonsmoker, no alcohol use, no drug usea.
and retired.
Medical History
Past Medical History
Past Medical History: Reports CVA, GERD, HTN, Hypercholesterolemia and IDDM
Past Surgical History: Reports Orthopedic
Social History
Tobacco: Non-smoker
Family History
Family History: Other
Allergies / Home Medications
Allergies reflects when Allergies were last updated in [facility].
Home Medications with original date entered in [facility]
Allergy/Medication List:
Allergies
Allergy/AdvReac Type Severity Reaction Status Date / Time
clindamycin Allergy Rash Verified 08/24/24 14:20
ibuprofen Allergy pt. states Verified 08/24/24 14:20
[From DayQuil Sinus had stroke
Pressure/Pain] day took it
perfume Allergy sinus Verified 08/24/24 14:20
problems
pseudoephedrine Allergy pt. states Verified 08/24/24 14:20
[From DayQuil Sinus had stroke
Pressure/Pain] day took it
tamsulosin Allergy pt. states Verified 08/24/24 14:20
severe
drop in BP
Home Medications
cznpoxi-hokkxppvxxock-wrurepsp 250 mg-250 mg-65 mg tablet (Excedrin Migraine) 2 tab PO TID 06/06/24
atorvastatin 80 mg tablet 80 mg PO DAILY High Cholesterol 06/06/24
benazepril 20 mg tablet 20 mg PO BID Blood Pressure 06/06/24
ezetimibe 10 mg tablet 10 mg PO DAILY High Cholesterol 06/06/24
gabapentin 600 mg tablet 600 mg PO TID Neurological Condition 06/06/24
hydrochlorothiazide 25 mg tablet 25 mg PO DAILY Blood Pressure 06/06/24
icosapent ethyl 1 gram capsule (Vascepa) 2 g PO BID High Cholesterol 06/06/24
pantoprazole 40 mg tablet,delayed release 40 mg PO BID Gastrointestinal Issue 06/06/24
aspirin 81 mg tablet,delayed release 81 mg PO DAILY Blood Clot Prevention/Tx 06/08/24
amlodipine 5 mg tablet 5 mg PO DAILY #30 tabs 08/01/24
Boswellia samantha extract-turmeric root extract 500 mg capsule 2 cap PO TID 08/24/24
acetaminophen 300 mg-codeine 60 mg tablet 1 tab PO TID 08/24/24
cholecalciferol (vitamin D3) 25 mcg (1,000 unit) tablet (Vitamin D3) 25 mcg PO MOTUWETHFR 08/24/24
cyanocobalamin (vitamin B-12) 1,000 mcg tablet 1,000 mcg PO MOTUWETHFR 08/24/24
insulin aspart U-100 100 unit/mL (3 mL) subcutaneous pen 5 unit SC AC 08/24/24
insulin glargine 100 unit/mL (3 mL) subcutaneous pen (Lantus Solostar U-100 Insulin) 8 unit SC QPM 08/24/24
metformin 500 mg tablet,extended release 24 hr 500 mg PO BID 08/24/24
therapeutic multivitamin 1 tab PO DAILY 08/24/24
Review of Systems
-
A 12 point ROS was completed and negative except as noted: Yes
Physical Exam
Vital Signs
Vital Signs
Temp Pulse Resp BP Pulse Ox
98.6 F 87 16 118/61 98
08/24/24 15:33 08/24/24 14:21 08/24/24 16:04 08/24/24 16:00 08/24/24 14:21
Physical Exam
General: Well Developed
Laboratory Results
-
08/24/24 15:23
08/24/24 15:23
Laboratory Results
Lactic Acid 1.6 mmol/L (0.7-2.0) 08/24/24 15:23
Total Bilirubin 0.7 mg/dl (0.2-1.3) 08/24/24 15:23
AST 20 U/L (17-59) 08/24/24 15:23
ALT 20 U/L (0-50) 08/24/24 15:23
Alkaline Phosphatase 116 U/L (38-126) 08/24/24 15:23
Impression/Plan
-
Physical
NAD Comfortable in bed
Anicteric
Moist mucous membranes
No JVD
CTA B/l
S1/S2 RRR
Soft, Non Tender, Normal Bowel Sounds and Distended
Musculoskeletal: RLE with erythema extending up to the mid vazquez, warmth and nonpitting edema. Some cracks between the toe webs on the right foot.
Warm
Neuro: AO x 3
Assessment nd plan
RLE cellulitis with known hx of MSSA bacteremia with likley source of the right foot (admission from may 2024).
-Start board spectrum antibiotics (Vanc/Cefepime)
-As no white count will chck DVT study of the RLE
-ANtipyretics
-Check Right foot xray
-CHeck ESR.CRP
-Likely will need MRI of the foot or tagged white blood cell scan
--though was not able to visualize ulceration, but does of charcot foot
HTN
-Continue antihypertensives (ccb, hctz, acei)
DM-ID
-Accucchekcs
-SSI
-Long acting anf short acting insulin
CCDiet
-Goal bg 140-180
-Hold Metformin
GERD
-Continue PPI
BPH
-Continue vascepa
CVA
-Continue asa and statin
DVT ppx
-LMWH
Full COde
at bedside
[2024-08-24 18:52] LABS: Glucose - Point of Care 201 mg/dl (70-99)
[2024-08-24] MEDS: MAXIPIME 1000 MG IV (18:56)
[2024-08-24] MEDS: LOVENOX 40 MG SC (18:58)
[2024-08-24] MEDS: LANTUS 0.15 UNITS SC (18:59)
[2024-08-24] MEDS: VANCOCIN 540 MG IV (19:10)
[2024-08-24] MEDS: ZESTRIL 20 MG PO (20:25)
[2024-08-24] MEDS: PROTONIX 40 MG PO (20:25)
[2024-08-24 20:30] VITALS: BP 147/96
[2024-08-24] MEDS: NEURONTIN 600 MG PO (22:20)
[2024-08-25] VITALS: BP 138/82
[2024-08-25] MEDS: PERCOCET 5/325 1 TABLET PO ×3 (00:09→15:26)
[2024-08-25] MEDS: MAXIPIME 1000 MG IV ×2 (06:00→10:22)
[2024-08-25 06:41] LABS: Hematocrit 36.2 % (39.0-52.0); Mean Corp Hgb Conc. 33.1 g/dL (33.0-37.0); Mean Corpuscular Hgb 30.7 pg (27.0-31.0); Mean Corpuscular Volume 92.6 fL (80.0-94.0); Mean Platelet Volume 10.3 fL (7.4-10.4); Platelet Count 142 10^3/uL (130-400); Red Blood Cell Count 3.91 10^6/uL (4.70-6.10); Red Cell Dist. Width 14.1 % (11.5-14.5); White Blood Cell Count 8.2 10^3/uL (4.8-10.8)
[2024-08-25 06:52] LABS: Blood Urea Nitrogen 26 mg/dl (9-20); Calcium 9.1 mg/dl (8.4-10.2); Carbon Dioxide 28 mmol/L (22-30); Chloride 101 mmol/L (98-107); Estimated Creatinine Clearance 60 ml/min; Glucose 216 mg/dl (70-99); Sodium 136 mmol/L (135-145); eGFR > 60.00
[2024-08-25 08:37] VITALS: BP 143/80
[2024-08-25] MEDS: PROTONIX 40 MG PO ×2 (08:40→20:36)
[2024-08-25] MEDS: ZETIA 10 MG PO (08:40)
[2024-08-25] MEDS: NEURONTIN 600 MG PO ×3 (08:40→20:40)
[2024-08-25] MEDS: LIPITOR 80 MG PO (08:40)
[2024-08-25 08:41] LABS: Glucose - Point of Care 177 mg/dl (70-99)
[2024-08-25] MEDS: ZESTRIL 20 MG PO ×2 (08:41→20:36)
[2024-08-25] MEDS: NORVASC 5 MG PO (08:41)
--- NOTE | 2024-08-25 08:54 | VNURNOTE ---
Chart reviewed. Patient [facility]. Will continue to follow hospital course and DC plans.
--- NOTE | 2024-08-25 10:04 | PHA.VAN.IN ---
Assessment
- Assessment
Renal Function: Appears similar to baseline
Maximum Temperature: 99.8
Minimum Temperature: 98.2
Concomitant Antimicrobials: cefepime
- Previous Dosing Experience
Previous Regimen: Vanc 1 g q12
Date of Regimen: Jul 2024
Provided AUC of: 421
Patient's SCR is: Similar to previous dosing experience (1.2)
Patient's weight is: Similar to previous dosing experience (81.3)
AUC Dosing Plan
- Dosing Variables
Dosing Weight (kg): 81.2
Dosing CrCl (ml/min): 60
Vd coefficient (L/kg): 0.7
- Empiric Dosing
Initial / Loading Dose: vanc 2000mg ( 25 mg/kg) 08/24 1910
Maintenance Regimen: vanc 1000mg q 12
dosing based on Jul 2024 admission levels.
- Monitoring
No levels ordered at this time: consider in the upcoming days
Pharmacokinetics Vancomycin I
- -
Patient Age: 74
Patient Sex: Male
Vancomycin Day #: 1
Indication: Bone And Joint
Requesting Provider: Dr Heber Rae
Pertinent Antimicrobial Allergies:
clindamycin Allergy Rash
Height / Weight:
Height 5 ft 9 in
Actual Weight 81.193 kg
Pertinent Past Medical History: BMI ~26, DM
- Vital Signs / Lab Results
Temp Pulse Resp BP Pulse Ox
99.8 F 86 16 143/80 98
08/25/24 08:37 08/25/24 08:37 08/25/24 08:37 08/25/24 08:37 08/25/24 08:37
Lab Results - Hematology
08/24/24 08/25/24
15:23 06:02
WBC 9.8 8.2
Lab Results - Chemistry
08/24/24 08/25/24
15:23 06:02
BUN 31 H 26 H
Creatinine 1.1 1.1
Estimated Creat Clear 60
Albumin 3.7
08/24/24
15:23
Lactic Acid 1.6
Microbiology Results
08/24/24 15:23 Blood Culture - Preliminary
Blood/Venous Positive culture in progress
Gram Stain - Final
08/24/24 16:33 Blood Culture - Preliminary
Blood/Venous Positive culture in progress
Gram Stain - Preliminary
[2024-08-25] MEDS: NOVOLOG FLEXPEN 8 UNITS SC ×3 (10:17→18:26)
--- NOTE | 2024-08-25 11:29 | W.PN.HOSP.TC ---
Today's Communication/Plan
-
Arterial ultrasound
MRI of the right foot
Broad-spectrum antibiotics
Echocardiogram
ID consultation
Assessment / Plan
Assessment / Plan
Impression:
Right lower extremity foot cellulitis
MRSA bacteremia 2/2
Charcot's foot
Status post right great toe partial amputation 06/10
Other conditions:
IDDM
Hypertension.
GERD.
BPH pain
History of CVA
Plan:
Right foot cellulitis
MRSA bacteremia 2 out of 2
Charcot's foot
Status post partial second right toe amputation 06/10 cultures positive with MSSA.
CRP 89
Arterial ultrasound
MRI to rule out osteomyelitis/soft tissue collection
Broad-spectrum antibiotics vancomycin/cefepime
Echocardiogram
ID consultation
Type 2 diabetes/IDDM.
Recent hemoglobin A1c 8.2.
Noted to be hyperglycemic.
Adjust insulin regimen Lantus/NovoLog dose increased
Continue carbohydrate controlled diet
Continue basal bolus protocol with serial Accu-Cheks
HTN
-Continue antihypertensives (ccb, hctz, acei)
DM-ID
-Accucchekcs
-SSI
-Long acting anf short acting insulin
CCDiet
-Goal bg 140-180
-Hold Metformin
GERD
-Continue PPI
BPH
-Continue vascepa
CVA
-Continue asa and statin
DVT ppx
-LMWH
Full COde
at bedside
Anticipated Discharge: > 48 hours
Subjective/Interval History
-
Date of Service: August 25, 2024
Objective Data
-
Labs:
Laboratory Results
08/25/24
06:02
WBC 8.2
Hgb 12.0 L
Hct 36.2 L
Plt Count 142
Sodium 136
Potassium 4.0
Chloride 101
Carbon Dioxide 28
BUN 26 H
Creatinine 1.1
Glucose 216 H
Calcium 9.1
Vital Signs:
Vital Signs
Temp Pulse Resp BP Pulse Ox
99.8 F 86 16 143/80 98
08/25/24 08:37 08/25/24 08:37 08/25/24 08:37 08/25/24 08:37 08/25/24 08:37
I&O
08/24/24 08/25/24 08/26/24
06:59 06:59 06:59
Intake Total 480 / 480
Output Total 600 / 600
Balance -120 / -120
Physical Exam
-
General: Well Developed and No Apparent Distress
HEENT: Normocephalic, Atraumatic and Moist Mucous Membranes
Respiratory: Clear to Auscultation
Cardiac: Regular Rhythm and S1/S2; Negative Murmur, Rub or Gallop
GI: Soft, Nontender, Nondistended and Normal Bowel Sounds; Negative Organomegaly
Rectal: Deferred by Provider
Musculoskeletal: No Clubbing, No Cyanosis and Other (Bilateral extremity with palpable pulses. Right foot with erythema, edema and induration. Right second great toe partial amputation.)
Skin: Negative Rash
Neuro: Nonfocal/Grossly Intact
--- NOTE | 2024-08-25 11:53 | CON.ID ---
Addendum entered and electronically signed by Natalie Camp MD 08/25/24 16:24:
I personally performed a history and physical exam of the patient and discussed management with the resident. I reviewed the resident's note and agree with the documented findings and plan of care HPI/CC.
Exam:
A+O x 3
RRR, S1, S2
Abd no active BS, soft, nontender, nondistended
Ext: right foot 3+ edema, + erythema dorsum of foot, + warmth; 2nd toe partial amp site no wound.
MSK: no spinal tenderness
# Recurrent MRSA bacteremia
# Recurrent right foot cellulitis
# Fever
# Recent hx MRSA bacteremia from Right 2nd toe osteo s/p partial amp, 2 weeks Vancomycin through 06/19/24.
-JENAE/TBI normal
- Ordered TTE
- MRI right foot to eval for residual osteo
- Repeat blood cx's until clear
- Continue Vancomycin, anticipate 6 week course.
- DC cefepime.
- Follow temps
-Follow clinically.
- Follow temps.
-
Original Note:
Consultation
-
Date/Time Consultation Requested: 08/25/2024
Date/Time Consultation Performed: 08/25/2024
Requesting Provider: Dr. Les Roberts
Performing Provider: Dr. Natalie Camp
Reason for Consultation: Right foot cellulitis
Chief Complaint / Past History
Chief Complaint
Right foot swelling and erythema
History of Present Illness
This is a 74-year-old male with past medical history of diabetes mellitus, charcoaled foot who was recently hospitalized at ED 07/30 - 08/01 with sepsis due to right foot cellulitis presents to ER 08/24/2024 complaining of right lower extremity
warmth, swelling and redness. Patient reports symptoms similar to previous presentation. There has been no drainage from the right lower extremity. He reports he had fevers and chills at home which reported temperature was 101 �F. At his last
admission, blood cultures were negative. He was initiated on vancomycin and discharged home on doxycycline. He reports his symptoms initially improved but returned yesterday. On presentation to ED this admission, patient was afebrile, blood
pressure normal. Blood cultures x 2 returned positive for Gram-positive cocci in clusters. He has been started on cefepime and vancomycin.
Past History
Additional Past Medical History:
Diabetes mellitus
Hypertension
Dyslipidemia
CVA
Charcot foot
MRSA bacteremia due to right second toe osteomyelitis status post 2 weeks vancomycin through 06/19/24.
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
Appendectomy
shoulder surgery
sinus surgery
Allergy History:
clindamycin Allergy (Verified 08/24/24 14:20)
Rash
ibuprofen [From DayQuil Sinus Pressure/Pain] Allergy (Verified 08/24/24 14:20)
pt. states had stroke day took it
perfume Allergy (Verified 08/24/24 14:20)
sinus problems
pseudoephedrine [From DayQuil Sinus Pressure/Pain] Allergy (Verified 08/24/24 14:20)
pt. states had stroke day took it
tamsulosin Allergy (Verified 08/24/24 14:20)
pt. states severe drop in BP
Medications Reviewed: Yes
Current Antibiotics:
Cefepime
Vancomycin
Social History
Tobacco: Non-Smoker
Alcohol: None
Drug: None
Personal:
Family History
Family History: Not Pertinent
Review of Systems
Review of Systems
General: Fever and Chills
HEENT: Negative Stiff Neck
Cardiovascular: Negative Chest Pain or Dyspnea
Respiratory: Negative Cough
Gasteroenterology: Negative Nausea
Endocrine: Negative Weakness or Fatigue
Vital Signs
Temp Pulse Resp BP Pulse Ox
99.8 F 86 16 143/80 98
08/25/24 08:37 08/25/24 08:37 08/25/24 08:37 08/25/24 08:37 08/25/24 08:37
Physical Exam
Physical Exam
Constitutional: No Acute Distress
Eyes: No Conjunctival Hemorrhage and Sclera Anicteric
Cardiovascular: Regular Rate and S1/S2
Pulmonary: Clear
Gastrointestinal: Soft, Non Tender, Non Distended and Normal Bowel Sounds
Extremities: Edema (Right foot planter region 2+), Erythema (Right planter foot with mild erythema and warmth) and Other (Right second toe partial Amputation)
Lab / Diagnostic Study Results
08/25/24 06:02
08/25/24 06:02
Abs Immat Gran (auto) 0.1 10^3/uL (0-0.05) H 08/24/24 15:23
Absolute Neuts (auto) 7.4 10^3/uL (1.4-6.5) H 08/24/24 15:23
Absolute Lymphs (auto) 1.1 10^3/uL (1.2-3.4) L 08/24/24 15:23
Absolute Monos (auto) 1.1 10^3/uL (0.1-0.6) H 08/24/24 15:23
Absolute Basos (auto) 0.0 10^3/uL (0-0.2) 08/24/24 15:23
Immature Gran % 0.7 % (0-0.5) H 08/24/24 15:23
Neutrophils % 76.2 % (42.2-75.2) H 08/24/24 15:23
Lymphocytes % 11.1 % (20.5-51.1) L 08/24/24 15:23
Monocytes % 11.3 % (1.7-9.3) H 08/24/24 15:23
Eosinophils % 0.5 % (0-6) 08/24/24 15:23
Basophils % 0.2 % (0-2) 08/24/24 15:23
ESR 26 mm/hour (0-20) H 08/24/24 15:23
Lactic Acid 1.6 mmol/L (0.7-2.0) 08/24/24 15:23
C-Reactive Protein 89.40 mg/L (0.0-10.00) H 08/24/24 15:23
Microbiology Results
Micro:
08/24/24 15:23 Blood Culture - Preliminary
Blood/Venous Staph aureus MRSA
Gram Stain - Final
08/24/24 16:33 Blood Culture - Preliminary
Blood/Venous Positive culture in progress
Gram Stain - Preliminary
08/25/2024; US Periph Art LOWER Ext w JENAE; Right ankle-brachial index 1.19, within normal limits. Right toe brachial index 0.9. Minimal arterial plaque without focal significant stenosis. Left ankle brachial index 1.13, left toe brachial index 0.96.
Minimal arterial plaque without focal significant stenosis.
08/24/2024; peripheral vascular ultrasound; No evidence of right lower extremity deep venous thrombosis.
08/24/2024; foot x-ray; Advanced chronic foot deformity, as described, consistent with neuropathic arthrosis, appearing relatively stable compared to prior examination. Mild to moderate soft tissue swelling. No subcutaneous emphysema.
Assessment / Plan
Assessment/plan
#Recurrent cellulitis R Foot.
#MRSA bacteremia x 2
#Right Charcot foot
#Recent hx MRSA bacteremia from Right 2nd toe osteo s/p partial amputation.
#Reported allergy to clindamycin- rash
-Initially initiated on broad-spectrum antibiotics vancomycin/cefepime
-Will d/c cefepime. Continue on only Vancomycin
-Will need at least 6 weeks of Vancomycin therapy.
-Continue to follow blood cultures
-Check Echocardiogram.
-MRI of the foot.
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
Diabetes mellitus
Hypertension
Dyslipidemia
CVA
Charcot foot
MRSA bacteremia due to right second toe osteomyelitis status post 2 weeks vancomycin through 06/19/24.
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
Appendectomy
shoulder surgery
sinus surgery
[2024-08-25 11:59] LABS: Glucose - Point of Care 244 mg/dl (70-99)
[2024-08-25 12:50] VITALS: BP 107/62
--- NOTE | 2024-08-25 12:55 | CON.VAS ---
Consultation
Consultation Request
Performing Provider: Martín
Reason for Consultation: PAD eval
Medical History
-
Chief Complaint: Right foot cellulitis
History of Present Illness:
74-year-old male with past medical history CVA, hypertension, hyperlipidemia, Charcot foot with recent diabetic toe infection status post partial resection/MSSA bacteremia presented to the ED last night for 2-day history of right lower extremity
warmth, swelling, erythema. No open wounds or drainage. Admitted for IV antibiotics and cellulitis workup.
Vascular consult for PAD evaluation. Patient seen at bedside this a.m. Right lower extremity only with very slight erythema remaining at the right ankle. Mild edema at the ankle and foot. No open wounds noted. Palpable DP, PT, popliteal,
femoral pulses bilaterally.
Arterial ultrasounds normal.
Past Medical History
Past Medical History: CVA, GERD, HTN, Hypercholesterolemia, IDDM and Other (BPH, hyperlipidemia, Charcot foot with recent diabetic toe infection status post partial resection/MSSA bacteremia)
Past Surgical History: Orthopedic
Social History
Tobacco: Non-Smoker
Personal:
Living: With Family
Employment: Retired
Family History
Family History: Reviewed & Not Pertinent
Allergies / Home Medications
Allergy/AdvReac Type Severity Reaction Status Date / Time
clindamycin Allergy Rash Verified 08/24/24 14:20
ibuprofen Allergy pt. states Verified 08/24/24 14:20
[From DayQuil Sinus had stroke
Pressure/Pain] day took it
perfume Allergy sinus Verified 08/24/24 14:20
problems
pseudoephedrine Allergy pt. states Verified 08/24/24 14:20
[From DayQuil Sinus had stroke
Pressure/Pain] day took it
tamsulosin Allergy pt. states Verified 08/24/24 14:20
severe
drop in BP
�Medication �Instructions �Recorded �Confirmed �Type
[id number] 250 2 tab PO TID 06/06/24 08/24/24 History
mg-250 mg-65 mg tablet (Excedrin
Migraine)
atorvastatin 80 mg tablet 80 mg PO DAILY High Cholesterol 06/06/24 08/24/24 History
benazepril 20 mg tablet 20 mg PO BID Blood Pressure 06/06/24 08/24/24 History
ezetimibe 10 mg tablet 10 mg PO DAILY High Cholesterol 06/06/24 08/24/24 History
gabapentin 600 mg tablet 600 mg PO TID Neurological 06/06/24 08/24/24 History
Condition
hydrochlorothiazide 25 mg tablet 25 mg PO DAILY Blood Pressure 06/06/24 08/24/24 History
icosapent ethyl 1 gram capsule 2 g PO BID High Cholesterol 06/06/24 08/24/24 History
(Vascepa)
pantoprazole 40 mg tablet,delayed 40 mg PO BID Gastrointestinal Issue 06/06/24 08/24/24 History
release
aspirin 81 mg tablet,delayed 81 mg PO DAILY Blood Clot 06/08/24 08/24/24 History
release Prevention/Tx
amlodipine 5 mg tablet 5 mg PO DAILY #30 tabs 08/01/24 08/24/24 Rx
Boswellia samantha extract-turmeric 2 cap PO TID 08/24/24 08/24/24 History
root extract 500 mg capsule
acetaminophen 300 mg-codeine 60 mg 1 tab PO TID 08/24/24 08/24/24 History
tablet
cholecalciferol (vitamin D3) 25 25 mcg PO MOTUWETHFR 08/24/24 08/24/24 History
mcg (1,000 unit) tablet (Vitamin
D3)
cyanocobalamin (vitamin B-12) 1,000 mcg PO MOTUWETHFR 08/24/24 08/24/24 History
1,000 mcg tablet
insulin aspart U-100 100 unit/mL 5 unit SC AC 08/24/24 08/24/24 History
(3 mL) subcutaneous pen
insulin glargine 100 unit/mL (3 8 unit SC QPM 08/24/24 08/24/24 History
mL) subcutaneous pen (Lantus
Solostar U-100 Insulin)
metformin 500 mg tablet,extended 500 mg PO BID 08/24/24 08/24/24 History
release 24 hr
therapeutic multivitamin 1 tab PO DAILY 08/24/24 08/24/24 History
Review of Systems
-
History Source: Patient
All other systems: Negative unless noted
Constitutional: Reports No Symptoms
EENT: Reports No Symptoms
Respiratory: Reports No Symptoms
Cardiac: Reports No Symptoms
Vascular: Denies Leg Pain / Claudication
Abdomen/GI: Reports No Symptoms
: Reports No Symptoms
Musculoskeletal: Reports Edema (Right ankle and foot)
Skin: Reports Other (Redness)
Neurological: Reports No Symptoms
Endocrine: Reports No Symptoms
Physical Exam
Vital Signs
Temp Pulse Resp BP Pulse Ox
98.5 F 81 16 107/62 92
08/25/24 12:50 08/25/24 12:50 08/25/24 08:37 08/25/24 12:50 08/25/24 12:50
Lab Results
08/25/24 06:02
08/25/24 06:02
Physical Exam
General: No Apparent Distress
HEENT: Normocephalic and Atraumatic
Respiratory: Non Labored Respirations
Cardiac: Negative JVD
GI: Soft and Non Tender
Musculoskeletal: No Clubbing, No Cyanosis and Edema (Slight to right ankle and foot)
Skin: Warm
Neuro: Awake, Alert and Oriented
Psych: Calm
Pulses: Bilateral Femoral: +2, Bilateral Popliteal: +2, Bilateral Dorsalis Pedis: +1 and Bilateral Posterior Tibial: +2
Assessment / Plan
-
74-year-old male here with right foot cellulitis
Arterial ultrasound: 1. Right ankle-brachial index 1.19, within normal limits. Right toe brachial index 0.9. Minimal arterial plaque without focal significant stenosis.
2. Left ankle brachial index 1.13, left toe brachial index 0.96. Minimal arterial plaque without focal significant stenosis.
Plan:
-Agree with antibiotics
-No evidence of arterial insufficiency
Data Reviewed
-
Ultrasound: Discussed with Patient
Labs: Labs Reviewed by me
--- NOTE | 2024-08-25 14:19 | W.PN.UPDATE ---
Update Note
Progress Note Update
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 Full consultation to follow. 74-year-old male with history of Charcot foot, recent diabetic second toe infection status post partial amputation with no issues with wound healing. Denies any chronic wound issues.
Presents here with right lower extremity warmth/swelling/redness. Patient notes pain in his foot. However when we probed him further he seemed to note that he tripped on some root just prior and that seem to be the source of his pain (possibly all
of his symptoms). No history of vascular issues.
On exam/no acute distress. Abdomen soft. Palpable 2+ femoral/popliteal/pedal pulses bilaterally (left DP slightly diminished, but otherwise all palpable). Right dorsal foot slightly erythematous/cellulitic. No crepitus. No gross infections. No
ulcerations. Feet are both warm.
Noninvasive studies reviewed. Normal JENAE/TBI's. No evidence of arterial deficiency.
Plan/ No evidence of arterial insufficiency. Please call with questions we will sign off.
[2024-08-25 15:20] VITALS: BP 129/67
[2024-08-25 17:20] LABS: Glucose - Point of Care 238 mg/dl (70-99)
[2024-08-25] MEDS: VANCOCIN 200 IV (18:24)
[2024-08-25] MEDS: LANTUS 0.15 UNITS SC (18:25)
[2024-08-25] MEDS: LOVENOX 40 MG SC (18:25)
[2024-08-25 20:46] VITALS: BP 119/66
[2024-08-25 20:58] LABS: Glucose - Point of Care 279 mg/dl (70-99)
[2024-08-25 23:12] VITALS: BP 135/77
[2024-08-26] MEDS: VANCOCIN 200 IV ×2 (05:36→18:02)
[2024-08-26 07:42] VITALS: BP 117/70
[2024-08-26 07:44] LABS: Glucose - Point of Care 219 mg/dl (70-99)
[2024-08-26] MEDS: NOVOLOG FLEXPEN 8 UNITS SC ×3 (08:08→18:01)
[2024-08-26] MEDS: NEURONTIN 600 MG PO ×3 (08:09→22:06)
[2024-08-26] MEDS: ZESTRIL 20 MG PO ×2 (08:09→19:52)
[2024-08-26] MEDS: LIPITOR 80 MG PO (08:09)
[2024-08-26] MEDS: ZETIA 10 MG PO (08:09)
[2024-08-26] MEDS: PROTONIX 40 MG PO ×2 (08:11→19:52)
[2024-08-26] MEDS: NORVASC 5 MG PO (08:11)
[2024-08-26 08:26] LABS: Hematocrit 38.9 % (39.0-52.0); Hemoglobin 12.8 g/dL (13.0-18.0); Mean Corp Hgb Conc. 32.9 g/dL (33.0-37.0); Mean Corpuscular Hgb 30.5 pg (27.0-31.0); Mean Corpuscular Volume 92.8 fL (80.0-94.0); Mean Platelet Volume 10.4 fL (7.4-10.4); Platelet Count 155 10^3/uL (130-400); Red Blood Cell Count 4.19 10^6/uL (4.70-6.10); Red Cell Dist. Width 13.8 % (11.5-14.5); White Blood Cell Count 6.2 10^3/uL (4.8-10.8)
[2024-08-26 08:49] LABS: Blood Urea Nitrogen 21 mg/dl (9-20); Calcium 9.5 mg/dl (8.4-10.2); Carbon Dioxide 28 mmol/L (22-30); Chloride 97 mmol/L (98-107); Estimated Creatinine Clearance 66 ml/min; Glucose 228 mg/dl (70-99); Potassium 4.2 mmol/L (3.5-5.1); Sodium 134 mmol/L (135-145); eGFR > 60.00
[2024-08-26] MEDS: PERCOCET 5/325 1 TABLET PO ×3 (09:09→19:51)
--- NOTE | 2024-08-26 09:18 | PN.CDI ---
CDI
- -
CDI:
Physician Documentation Request
Admit Date: 08/24/24 17:04
Dear Doctor Alejandra,
Clinical Indicators:
Patient admitted with Right lower extremity foot cellulitis & MRSA bacteremia.
08/25 ID consult, 'He reports he had fevers and chills at home which reported temperature was 101 �F'
HR trend on admission:
08/24/24
14:21 08/24/24
20:30 08/25/24
00:00
Pulse 87 97 93
Please clarify which of the following most accurately describes the status of the patient's infection:
Sepsis, POA
- Systemic manifestations of infection, with 2 or more SIRS criteria which include:
- Fever >100.4 degrees F or hypothermia < 96.8 degrees F
- Leukocytosis - WBC > 12,000 or leukopenia - WBC < 4,000 or > 10% bands
- Tachycardia > 90 beats per minute
- Tachypnea - RR > 20 breaths per minute or PaCO2 , 32mmHg
Source: Merck Manual 2013
Cellulitis/Bacteremia Only, Without Systemic Illness
Other
Use of terms such as suspected, likely, concern for, or probable (associated with a specific diagnosis that is being evaluated, monitored, or treated as if it exists) are acceptable and can be coded in the inpatient setting, when documented at the
time of discharge.
Thank you,
Rabia Brown RN BSN
CDI Specialist
available via tiger text
Please use your independent medical judgment in providing your response.
--- NOTE | 2024-08-26 09:36 | CM ---
Addendum entered by Cindy Hedrick RN 08/26/24 13:58:
CM sent Daptomycin script to [facility] via [facility] for insurance check. CM will remain available as needed.
Original Note:
CM reviewed medical records. CM met with patient in room. Patient lives independently. Patient is currently on service with [facility]. Patient has a history of [place] [facility] for IV antibiotics. Patient is active with his PCP. Patient uses [facility] for
medication services.
[facility] is following for discharge needs.
PLAN: home with [facility].
--- NOTE | 2024-08-26 11:07 | PHA.VAN.FU ---
Vancomycin Assessment / Plan
- Assessment
Renal Function: Stable
WBC's are: WNL
In the past 24 hrs, patient has been: Febrile (tmax 100.5)
- Dosing Plan
Continue: vanc 1000mg q12h
- Monitoring Plan
Peak Level: 08/26 2030 - after 3rd dose
Trough Level: 08/27 0530
- Follow Up
Pharmacy will continue to follow.
Vancomycin Follow UP
- -
Patient Age: 74
Patient Sex: Male
Vancomycin Day #: 2
Indication: [facility]
Requesting Provider: Dr Heber Rae
Pertinent Antimicrobial Allergies:
clindamycin Allergy Rash
Height / Weight:
Height 5 ft 9 in
Actual Weight 81.193 kg
Pertinent Past Medical History: BMI ~26, DM
- Vital Signs / Lab Results
Temp Pulse Resp BP Pulse Ox
99.4 F 74 17 117/70 97
08/26/24 07:42 08/26/24 07:42 08/26/24 07:42 08/26/24 07:42 08/26/24 07:42
Lab Results - Hematology
08/24/24 08/25/24 08/26/24
15:23 06:02 07:23
WBC 9.8 8.2 6.2
Lab Results - Chemistry
08/24/24 08/25/24 08/26/24
15:23 06:02 07:23
BUN 31 H 26 H 21 H
Creatinine 1.1 1.1 1.0
Estimated Creat Clear 60 66
Albumin 3.7
08/24/24
15:23
Lactic Acid 1.6
Microbiology Results
08/24/24 16:33 Blood Culture - Preliminary
Blood/Venous Positive culture in progress
Gram Stain - Final
08/24/24 15:23 Blood Culture - Preliminary
Blood/Venous Staph aureus MRSA
Gram Stain - Final
[2024-08-26 12:11] LABS: Glucose - Point of Care 283 mg/dl (70-99)
--- NOTE | 2024-08-26 13:46 | W.PN.ID1 ---
Date of Service
Date of Service: August 26, 2024
Today's Communication
Continue Vancomycin.
Assessment / Plan
# Recurrent MRSA bacteremia
# Recurrent right foot cellulitis
# Fever
# Recent hx MRSA bacteremia from Right 2nd toe osteo s/p partial amp, 2 weeks Vancomycin through 06/19/24.
-JENAE/TBI normal
- TTE no gross vegetation
- MRI right foot + charcot foot changes
- Follow repeat blood cx's until clear
- Continue Vancomycin for now. Follow levels closely.
- anticipate 6 week of IV antibiotic.
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
If insurance covers, will switch Vancomycin to Daptomycin.
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
Diabetes mellitus
Hypertension
Dyslipidemia
CVA
Charcot foot
MRSA bacteremia due to right second toe osteomyelitis status post 2 weeks vancomycin through 06/19/24.
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
Appendectomy
shoulder surgery
sinus surgery
Chief Complaint
-: Cellulitis and Bacteremia
Subjective / Review of Systems
Foot still red.
Vital Signs / Physical Exam
Vital Signs
Vital Signs
Temp Pulse Resp BP Pulse Ox
99.4 F 74 17 117/70 97
08/26/24 07:42 08/26/24 07:42 08/26/24 07:42 08/26/24 07:42 08/26/24 07:42
Selected Entries
08/25/24
15:20
Temp 100.5 F H
Physical Exam
Constitutional: No Acute Distress and Comfortable
Cardiovascular: Regular Rate and S1/S2; Negative Murmur
Pulmonary: Clear
Gastrointestinal: Soft, Non Tender, Non Distended and Normal Bowel Sounds
Extremities: Edema (right foot 3+) and Erythema (right foot dorsal forefoot, + warmth)
Musculoskeletal: Negative Joint Swelling, Joint Effusion or Spinal Tenderness
Wound: None (right foot)
Neurological: AO x 3
Objective Data
Lab Data
Lab Results
08/26/24 07:23
08/26/24 07:23
ESR 26 mm/hour (0-20) H 08/24/24 15:23
Estimated Creat Clear 66 ml/min 08/26/24 07:23
Lactic Acid 1.6 mmol/L (0.7-2.0) 08/24/24 15:23
Total Bilirubin 0.7 mg/dl (0.2-1.3) 08/24/24 15:23
AST 20 U/L (17-59) 08/24/24 15:23
ALT 20 U/L (0-50) 08/24/24 15:23
Alkaline Phosphatase 116 U/L (38-126) 08/24/24 15:23
C-Reactive Protein 89.40 mg/L (0.0-10.00) H 08/24/24 15:23
Most recent labs reviewed.
Micro Results:
08/26/24 11:05 Blood Culture - Pending
Blood/Venous
08/24/24 16:33 Blood Culture - Preliminary
Blood/Venous Positive culture in progress
Gram Stain - Final
08/24/24 15:23 Blood Culture - Preliminary
Blood/Venous Staph aureus MRSA
Gram Stain - Final
08/26/24 07:23 Blood Culture - Pending
Blood/Venous
08/25/24 14:54 Blood Culture - Pending
Blood/Venous
08/25/2024; Perip Art LOWER Ext w JENAE; Right ankle-brachial index 1.19, within normal limits. Right toe brachial index 0.9. Minimal arterial plaque without focal significant stenosis. Left ankle brachial index 1.13, left toe brachial index 0.96.
Minimal arterial plaque without focal significant stenosis.
08/24/2024; peripheral vascular ultrasound; No evidence of right lower extremity deep venous thrombosis.
08/24/2024; foot x-ray; Advanced chronic foot deformity, as described, consistent with neuropathic arthrosis, appearing relatively stable compared to prior examination. Mild to moderate soft tissue swelling. No subcutaneous emphysema.
--- NOTE | 2024-08-26 14:51 | W.PN.HOSP.TC ---
Today's Communication/Plan
-
IV antibiotics
Blood culture for clearance
Case management consultation for outpatient IV antibiotics provision
Assessment / Plan
Assessment / Plan
Impression:
Right lower extremity foot cellulitis
MRSA bacteremia 2/2
Charcot's foot
Status post right great toe partial amputation 06/10
Other conditions:
IDDM
Hypertension.
GERD.
BPH pain
History of CVA
Plan:
Right foot cellulitis
MRSA bacteremia 2 out of 2
Charcot's foot
Status post partial second right toe amputation 06/10 cultures positive with MSSA.
CRP 89
Arterial ultrasound with no vascular insufficiency.
MRI positive for Charcot foot, negative for osteomyelitis
Echocardiogram with no gross vegetations and preserved biventricular function
Antibiotics consolidated to vancomycin with plan for 6 weeks of IV antibiotic therapy
Follow-up blood cultures for clearance.
Type 2 diabetes/IDDM.
Recent hemoglobin A1c 8.2.
Noted to be hyperglycemic.
Adjust insulin regimen Lantus/NovoLog dose increased
Continue carbohydrate controlled diet
Continue basal bolus protocol with serial Accu-Cheks
Hold metformin acutely
HTN
-Continue antihypertensives (ccb, hctz, acei)
GERD
-Continue PPI
BPH
-Continue vascepa
CVA
-Continue asa and statin
DVT ppx
-LMWH
Full COde
at bedside
Anticipated Discharge: 24 - 48 hours
Subjective/Interval History
-
Date of Service: August 26, 2024
Objective Data
-
Labs:
Laboratory Results
08/26/24
07:23
WBC 6.2
Hgb 12.8 L
Hct 38.9 L
Plt Count 155
Sodium 134 L
Potassium 4.2
Chloride 97 L
Carbon Dioxide 28
BUN 21 H
Creatinine 1.0
Glucose 228 H
Calcium 9.5
Vital Signs:
Vital Signs
Temp Pulse Resp BP Pulse Ox
99.4 F 74 17 117/70 97
08/26/24 07:42 08/26/24 07:42 08/26/24 07:42 08/26/24 07:42 08/26/24 07:42
I&O
08/25/24 08/26/24 08/27/24
06:59 06:59 06:59
Intake Total 480 / 480 200 / 200
Output Total 600 / 600
Balance -120 / -120 200 / 200
Physical Exam
-
General: Well Developed and No Apparent Distress
HEENT: Normocephalic, Atraumatic and Moist Mucous Membranes
Respiratory: Clear to Auscultation
Cardiac: Regular Rhythm and S1/S2; Negative Murmur, Rub or Gallop
GI: Soft, Nontender, Nondistended and Normal Bowel Sounds; Negative Organomegaly
Rectal: Deferred by Provider
Musculoskeletal: No Clubbing, No Cyanosis and Other (Bilateral extremity with palpable pulses. Right foot with erythema, edema and induration. Right second great toe partial amputation.)
Skin: Negative Rash
Neuro: Nonfocal/Grossly Intact
[2024-08-26 15:32] VITALS: BP 106/62
[2024-08-26 16:37] LABS: Glucose - Point of Care 337 mg/dl (70-99)
[2024-08-26] MEDS: LANTUS 0.15 UNITS SC (18:01)
[2024-08-26] MEDS: LOVENOX 40 MG SC (18:02)
[2024-08-26] MEDS: NOVOLOG FLEXPEN-LOW RESISTANCE 4 UNITS SC (18:02)
[2024-08-26 19:50] VITALS: BP 110/63
--- NOTE | 2024-08-26 20:38 | PTCARENOTE ---
Received pt awake, alert, oriented with c/o pain to right foot. Pt medicated for pain appropriately. Vitals stable, Ambulates in room independently without difficulty. Right foot erythema present. Refer to assessment documentation for full shift
assessment documentation. Pt currently resting comfortably in bed. Plan of care updated with pt.
[2024-08-26 21:49] LABS: Glucose - Point of Care 300 mg/dl (70-99)
[2024-08-26 22:39] LABS: Vancomycin Peak 16.9 ug/ml (18-26)
--- NOTE | 2024-08-26 23:02 | PTCARENOTE ---
Contacted house provider regarding pt's vanco peak result and 2200 BS of 300.
[2024-08-26] MEDS: NOVOLOG FLEXPEN 4 UNITS SC (23:21)
[2024-08-26 23:35] VITALS: BP 104/58
[2024-08-27 03:13] LABS: Glucose - Point of Care 155 mg/dl (70-99)
[2024-08-27] MEDS: VANCOCIN 200 IV ×2 (06:11→12:14)
[2024-08-27 06:23] LABS: Hemoglobin 12.7 g/dL (13.0-18.0); Mean Corp Hgb Conc. 34.3 g/dL (33.0-37.0); Mean Corpuscular Hgb 30.9 pg (27.0-31.0); Mean Platelet Volume 10.1 fL (7.4-10.4); Platelet Count 157 10^3/uL (130-400); Red Blood Cell Count 4.11 10^6/uL (4.70-6.10); Red Cell Dist. Width 13.6 % (11.5-14.5)
[2024-08-27 06:45] LABS: Vancomycin Trough 11.5 ug/ml (5-20)
[2024-08-27 06:50] LABS: Blood Urea Nitrogen 26 mg/dl (9-20); Calcium 9.7 mg/dl (8.4-10.2); Carbon Dioxide 30 mmol/L (22-30); Chloride 99 mmol/L (98-107); Estimated Creatinine Clearance 66 ml/min; Glucose 185 mg/dl (70-99); Potassium 4.7 mmol/L (3.5-5.1); Sodium 137 mmol/L (135-145); eGFR > 60.00
[2024-08-27 07:45] LABS: Glucose - Point of Care 219 mg/dl (70-99)
[2024-08-27 07:49] VITALS: BP 139/75
[2024-08-27] MEDS: ZETIA 10 MG PO (09:01)
[2024-08-27] MEDS: LIPITOR 80 MG PO (09:01)
[2024-08-27] MEDS: NORVASC 5 MG PO (09:01)
[2024-08-27] MEDS: PROTONIX 40 MG PO ×2 (09:01→20:40)
[2024-08-27] MEDS: ZESTRIL 20 MG PO ×2 (09:02→20:40)
[2024-08-27] MEDS: NOVOLOG FLEXPEN 8 UNITS SC ×3 (09:02→18:17)
[2024-08-27] MEDS: NEURONTIN 600 MG PO ×3 (09:02→20:46)
[2024-08-27] MEDS: NOVOLOG FLEXPEN-LOW RESISTANCE 2 UNITS SC ×2 (09:03→12:59)
--- NOTE | 2024-08-27 10:27 | CM ---
Addendum entered by Ruth Campoverde 08/27/24 15:08:
[facility] in place for IV antibiotics and Laila to follow for nursing. PICC not in place and [facility] said the PICC had to be in place in the next 30 min or patient would need to wait until tomorrow for discharge, nursing made aware.
Original Note:
Patient seen at bedside. Patient states he wants to go home with IV antibiotics and agreed to have CM send referral to [facility] after review of PAC data. Patient requested [facility], I will review with liaison but due to need for IV nurse I don't
believe that [facility] will be able to assist. CM will send tt to ID to request prescription. CM will continue to follow for discharge planning needs.
Plan; home with VN/IV antibiotics pending physician assessments
--- NOTE | 2024-08-27 11:45 | W.PN.HOSP.TC ---
Today's Communication/Plan
-
Blood cultures clear.
Set up home antibiotics infusion
PICC line pain
Adjust insulin regimen
Assessment / Plan
Assessment / Plan
Impression:
Right lower extremity foot cellulitis
MRSA bacteremia 2/2. No clinical evidence of sepsis
Charcot's foot
Status post right great toe partial amputation 06/10
Other conditions:
IDDM
Hypertension.
GERD.
BPH pain
History of CVA
Plan:
Right foot cellulitis
MRSA bacteremia 2 out of 2
Charcot's foot
Status post partial second right toe amputation 06/10 cultures positive with MSSA.
CRP 89
Arterial ultrasound with no vascular insufficiency.
MRI positive for Charcot foot, negative for osteomyelitis
Echocardiogram with no gross vegetations and preserved biventricular function
Antibiotics consolidated to vancomycin with plan for 6 weeks of IV antibiotic therapy
Repeated blood culture cleared
Set up home infusion.
PICC line to be placed
Type 2 diabetes/IDDM.
Recent hemoglobin A1c 8.2.
Noted to be hyperglycemic.
Adjust insulin regimen Lantus/NovoLog dose increased
Continue carbohydrate controlled diet
Continue basal bolus protocol with serial Accu-Cheks
Hold metformin acutely
HTN
-Continue antihypertensives (ccb, hctz, acei)
GERD
-Continue PPI
BPH
-Continue vascepa
CVA
-Continue asa and statin
DVT ppx
-LMWH
Full COde
at bedside
Anticipated Discharge: 24 - 48 hours
Subjective/Interval History
-
Date of Service: August 27, 2024
Objective Data
-
Labs:
Laboratory Results
08/27/24
05:51
WBC 5.0
Hgb 12.7 L
Hct 37.0 L
Plt Count 157
Sodium 137
Potassium 4.7
Chloride 99
Carbon Dioxide 30
BUN 26 H
Creatinine 1.0
Glucose 185 H
Calcium 9.7
Vital Signs:
Vital Signs
Temp Pulse Resp BP Pulse Ox
98.4 F 77 18 139/75 98
08/27/24 07:49 08/27/24 07:49 08/27/24 07:49 08/27/24 07:49 08/27/24 11:00
I&O
08/26/24 08/27/24 08/28/24
06:59 06:59 06:59
Intake Total 200 / 200 720 / 720
Balance 200 / 200 720 / 720
Physical Exam
-
General: Well Developed and No Apparent Distress
HEENT: Normocephalic, Atraumatic and Moist Mucous Membranes
Respiratory: Clear to Auscultation
Cardiac: Regular Rhythm and S1/S2; Negative Murmur, Rub or Gallop
GI: Soft, Nontender, Nondistended and Normal Bowel Sounds; Negative Organomegaly
Rectal: Deferred by Provider
Musculoskeletal: No Clubbing, No Cyanosis and Other (Bilateral extremity with palpable pulses. Right foot with erythema, edema and induration. Right second great toe partial amputation.)
Skin: Negative Rash
Neuro: Nonfocal/Grossly Intact
--- NOTE | 2024-08-27 11:49 | PHA.VAN.FU ---
Vancomycin Assessment / Plan
- Assessment
Renal Function: Stable
WBC's are: WNL
In the past 24 hrs, patient has been: Afebrile
- Assessment - Therapeutic Drug Monitoring
Extrapolated Cmax (mcg/mL): 19.7
Peak level was drawn: More than 3 hours after previous dose
Extrapolated Cmin (mcg/mL): 11.4
Trough Drawn: Appropriately
Levels were drawn: At steady state (post 3 rd maintenance plus loading dose)
Calculated AUC (mcg*h/mL): 364
Calculated ke: 0.0496
Calculated half life (H): 14
Calculated Vd (L): 110
Calculated Vanc CL (ml/min): 91
- Dosing Plan
Adjust Regimen to: vanc 2000mg q24h
New Regimen Predicts: AUC (383), Peak (26), Trough (8.7)
Dosing Comments: adjust due to half-lie > dosing interval. Peak drawn late, AUC may be under
Adjust dose due to half-lie > dosing interval. Peak drawn late, AUC may be underestimated. 2000 mg q24 h starting 08/28 0600, additional 1000 mg ordered for 08/27.
- Monitoring Plan
No level(s) ordered at this time: consider in the upcoming days
- Follow Up
Pharmacy will continue to follow.
Vancomycin Follow UP
- -
Patient Age: 74
Patient Sex: Male
Vancomycin Day #: 3
Indication: [facility]
Requesting Provider: Dr Heber Rae/ Dr Camp
Pertinent Antimicrobial Allergies:
clindamycin Allergy Rash
Height / Weight:
Height 5 ft 9 in
Actual Weight 81.193 kg
Pertinent Past Medical History: BMI ~26, DM
- Vital Signs / Lab Results
Temp Pulse Resp BP Pulse Ox
98.4 F 77 18 139/75 98
08/27/24 07:49 08/27/24 07:49 08/27/24 07:49 08/27/24 07:49 08/27/24 11:00
Lab Results - Hematology
08/24/24 08/25/24 08/26/24
15:23 06:02 07:23
WBC 9.8 8.2 6.2
08/27/24
05:51
WBC 5.0
Lab Results - Chemistry
08/24/24 08/25/24 08/26/24
15:23 06:02 07:23
BUN 31 H 26 H 21 H
Creatinine 1.1 1.1 1.0
Estimated Creat Clear 60 66
Albumin 3.7
08/27/24
05:51
BUN 26 H
Creatinine 1.0
Estimated Creat Clear 66
Albumin
08/24/24
15:23
Lactic Acid 1.6
Microbiology Results
08/26/24 11:05 Blood Culture - Preliminary
Blood/Venous No Growth in 24 hours- Final report to follow
08/24/24 16:33 Blood Culture - Final
Blood/Venous Staph aureus MRSA
Gram Stain - Final
08/24/24 15:23 Blood Culture - Final
Blood/Venous Staph aureus MRSA
Gram Stain - Final
08/26/24 07:23 Blood Culture - Preliminary
Blood/Venous No Growth in 24 hours- Final report to follow
08/25/24 14:54 Blood Culture - Preliminary
Blood/Venous No Growth in 24 hours- Final report to follow
Therapeutic Drug Monitoring
Vancomycin Peak 16.9 ug/ml (18-26) L 08/26/24 22:05
Vancomycin Trough 11.5 ug/ml (5-20) 08/27/24 05:51
[2024-08-27 12:10] LABS: Glucose - Point of Care 243 mg/dl (70-99)
--- NOTE | 2024-08-27 13:19 | W.PN.ID1 ---
Addendum entered and electronically signed by Natalie Camp MD 08/27/24 18:17:
I saw and evaluated the patient. I reviewed the resident�s note and agree with findings and plan as documented in the resident�s note.
# Recurrent MRSA bacteremia
# Recurrent right foot cellulitis - improving
# Fever
# Recent hx MRSA bacteremia from Right 2nd toe osteo s/p partial amp, 2 weeks Vancomycin through 06/19/24.
-JENAE/TBI normal
- TTE no gross vegetation
- MRI right foot + charcot foot changes
- repeat blood cx's negative
-Insurance covers daptomycin.
- Discontinue Vancomycin
- Tomorrow start Daptomycin 800mg IV q24h through 10/06/2024
- Follow CK level while on dapto.
-Hold statin while on daptomycin.
-Place PICC.
- OK for dc home tomorrow.
Case discussed with Alejandra Escoto
Original Note:
Date of Service
Date of Service: August 27, 2024
Today's Communication
.
Assessment / Plan
#Recurrent cellulitis R Foot.
#MRSA bacteremia x 2
#Right Charcot foot
#Recent hx MRSA bacteremia from Right 2nd toe osteo s/p partial amputation.
-JENAE/TBI normal
- TTE no gross vegetation
- MRI right foot + charcot foot changes
- Repeat Blood cultures clear.
- anticipate 6 weeks of IV daptomycin
-D/c vanc today. Will initiate on Daptomycin in the AM
-Check CK level.
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
Diabetes mellitus
Hypertension
Dyslipidemia
CVA
Charcot foot
MRSA bacteremia due to right second toe osteomyelitis status post 2 weeks vancomycin through 06/19/24.
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
Appendectomy
shoulder surgery
sinus surgery
Chief Complaint
-: Cellulitis and Bacteremia
Subjective / Review of Systems
Review of Systems: No Fever and No Chills
Vital Signs / Physical Exam
Vital Signs
Vital Signs
Temp Pulse Resp BP Pulse Ox
98.4 F 77 18 139/75 98
08/27/24 07:49 08/27/24 07:49 08/27/24 07:49 08/27/24 07:49 08/27/24 11:00
Physical Exam
Constitutional: No Acute Distress and Comfortable
Cardiovascular: Regular Rate and S1/S2; Negative Murmur
Pulmonary: Clear
Gastrointestinal: Soft, Non Tender, Non Distended and Normal Bowel Sounds
Extremities: Edema (right foot improving) and Erythema (right foot dorsal forefoot, + warmth)
Musculoskeletal: Negative Joint Swelling, Joint Effusion or Spinal Tenderness
Wound: None (right foot)
Neurological: AO x 3
Objective Data
Lab Data
Lab Results
08/27/24 05:51
08/27/24 05:51
ESR 26 mm/hour (0-20) H 08/24/24 15:23
Estimated Creat Clear 66 ml/min 08/27/24 05:51
Lactic Acid 1.6 mmol/L (0.7-2.0) 08/24/24 15:23
Total Bilirubin 0.7 mg/dl (0.2-1.3) 08/24/24 15:23
AST 20 U/L (17-59) 08/24/24 15:23
ALT 20 U/L (0-50) 08/24/24 15:23
Alkaline Phosphatase 116 U/L (38-126) 08/24/24 15:23
C-Reactive Protein 89.40 mg/L (0.0-10.00) H 08/24/24 15:23
Most recent labs reviewed.
Micro Results:
08/26/24 11:05 Blood Culture - Preliminary
Blood/Venous No Growth in 24 hours- Final report to follow
08/24/24 16:33 Blood Culture - Final
Blood/Venous Staph aureus MRSA
Gram Stain - Final
08/24/24 15:23 Blood Culture - Final
Blood/Venous Staph aureus MRSA
Gram Stain - Final
08/26/24 07:23 Blood Culture - Preliminary
Blood/Venous No Growth in 24 hours- Final report to follow
08/25/24 14:54 Blood Culture - Preliminary
Blood/Venous No Growth in 24 hours- Final report to follow
08/25/2024; US Perip Art LOWER Ext w JENAE; Right ankle-brachial index 1.19, within normal limits. Right toe brachial index 0.9. Minimal arterial plaque without focal significant stenosis. Left ankle brachial index 1.13, left toe brachial index 0.96.
Minimal arterial plaque without focal significant stenosis.
08/24/2024; peripheral vascular ultrasound; No evidence of right lower extremity deep venous thrombosis.
08/24/2024; foot x-ray; Advanced chronic foot deformity, as described, consistent with neuropathic arthrosis, appearing relatively stable compared to prior examination. Mild to moderate soft tissue swelling. No subcutaneous emphysema.
--- NOTE | 2024-08-27 13:26 | VATNOTE ---
Pending blood cultures from 08/25 and 08/26. Blood cultures from 08/24 positive. Contacted ELYSIA Lutz to place PICC at this time.
[2024-08-27 14:42] VITALS: BP 105/65
[2024-08-27] MEDS: PERCOCET 5/325 1 TABLET PO ×2 (14:50→20:46)
[2024-08-27] MEDS: LOVENOX 40 MG SC (17:06)
[2024-08-27] MEDS: LANTUS 0.2 UNITS SC (17:08)
[2024-08-27 17:21] LABS: Glucose - Point of Care 261 mg/dl (70-99)
--- NOTE | 2024-08-27 17:34 | VATNOTE ---
PICC tip in good position in the cavoatrial junction per radiology report. Nursing notified OK to use PICC at this time. Instructed to remove all ipsilateral IVs and discard all IV tubing prior to using PICC line.
[2024-08-27] MEDS: NOVOLOG FLEXPEN-LOW RESISTANCE 3 UNITS SC (18:17)
[2024-08-27 21:20] LABS: Glucose - Point of Care 180 mg/dl (70-99)
[2024-08-27 23:43] VITALS: BP 144/73
[2024-08-28 06:33] LABS: Hematocrit 34.2 % (39.0-52.0); Hemoglobin 11.9 g/dL (13.0-18.0); Mean Corp Hgb Conc. 34.8 g/dL (33.0-37.0); Mean Corpuscular Hgb 31.1 pg (27.0-31.0); Mean Corpuscular Volume 89.3 fL (80.0-94.0); Mean Platelet Volume 9.8 fL (7.4-10.4); Platelet Count 156 10^3/uL (130-400); Red Blood Cell Count 3.83 10^6/uL (4.70-6.10); Red Cell Dist. Width 13.5 % (11.5-14.5); White Blood Cell Count 5.1 10^3/uL (4.8-10.8)
[2024-08-28 06:53] LABS: Blood Urea Nitrogen 21 mg/dl (9-20); Calcium 9.3 mg/dl (8.4-10.2); Carbon Dioxide 28 mmol/L (22-30); Chloride 100 mmol/L (98-107); Creatine Phosphokinase < 20 U/L (55-170); Estimated Creatinine Clearance 73 ml/min; Glucose 188 mg/dl (70-99); Potassium 4.3 mmol/L (3.5-5.1); Sodium 136 mmol/L (135-145); eGFR > 60.00
[2024-08-28 07:00] VITALS: BP 125/77
[2024-08-28] MEDS: CUBICIN 16 MG IV (07:27)
[2024-08-28] MEDS: ZESTRIL 20 MG PO (07:28)
[2024-08-28] MEDS: ZETIA 10 MG PO (07:28)
[2024-08-28] MEDS: PERCOCET 5/325 1 TABLET PO (07:28)
[2024-08-28] MEDS: NEURONTIN 600 MG PO (07:28)
[2024-08-28] MEDS: PROTONIX 40 MG PO (07:28)
[2024-08-28] MEDS: NORVASC 5 MG PO (07:28)
[2024-08-28 09:07] LABS: Glucose - Point of Care 217 mg/dl (70-99)
[2024-08-28] MEDS: NOVOLOG FLEXPEN-LOW RESISTANCE 2 UNITS SC (09:35)
[2024-08-28] MEDS: NOVOLOG FLEXPEN 8 UNITS SC (09:36)
--- NOTE | 2024-08-28 09:48 | CM ---
Addendum entered by Demi Kumar 08/28/24 10:51:
Patient for d/c home today with [facility] and [facility].
IMM completed.
Plan: home today, spouse will transport.
[facility]

[facility]
fax# [phone]
Addendum entered by Demi Kumar 08/28/24 10:08:
PCP verified- Dr. Evelyn Briones, admissions to update in system.
Addendum entered by Demi Kumar 08/28/24 09:58:
Script and PICC info faxed to Jada at [facility] .
Original Note:
PICC line data faxed to [facility] at [phone], await call back from [facility] and [facility].
--- NOTE | 2024-08-28 10:26 | W.PN.ID1 ---
Date of Service
Date of Service: August 28, 2024
Today's Communication
- OK for dc home
-Follow-up with me in 4 weeks.
Assessment / Plan
# Recurrent MRSA bacteremia
# Recurrent right foot cellulitis - improving
# Fever - resolved
# Recent hx MRSA bacteremia from Right 2nd toe osteo s/p partial amp, 2 weeks Vancomycin through 06/19/24.
-JENAE/TBI normal
- TTE no gross vegetation
- MRI right foot + charcot foot changes
- repeat blood cx's negative
-Insurance covers daptomycin.
- Discontinue Vancomycin
- Continue Daptomycin 800mg IV q24h through 10/06/2024
- CK<20
-Hold statin while on daptomycin.
- OK for dc home
-Follow-up with me in 4 weeks.
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
Diabetes mellitus
Hypertension
Dyslipidemia
CVA
Charcot foot
MRSA bacteremia due to right second toe osteomyelitis status post 2 weeks vancomycin through 06/19/24.
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
Appendectomy
shoulder surgery
sinus surgery
Chief Complaint
-: Cellulitis and Bacteremia
Subjective / Review of Systems
fEELS WELL
Vital Signs / Physical Exam
Vital Signs
Vital Signs
Temp Pulse Resp BP Pulse Ox
98.0 F 68 14 125/77 98
08/28/24 07:00 08/28/24 07:00 08/28/24 07:00 08/28/24 07:00 08/28/24 07:00
Physical Exam
Constitutional: No Acute Distress and Comfortable
Pulmonary: Clear
Gastrointestinal: Soft, Non Tender, Non Distended and Normal Bowel Sounds
Extremities: Other (right foot edema resolving, erythema resolving)
Neurological: AO x 3
Lines: PICC
Objective Data
Lab Data
Lab Results
08/28/24 06:17
08/28/24 06:17
ESR 26 mm/hour (0-20) H 08/24/24 15:23
Estimated Creat Clear 73 ml/min 08/28/24 06:17
Lactic Acid 1.6 mmol/L (0.7-2.0) 08/24/24 15:23
Total Bilirubin 0.7 mg/dl (0.2-1.3) 08/24/24 15:23
AST 20 U/L (17-59) 08/24/24 15:23
ALT 20 U/L (0-50) 08/24/24 15:23
Alkaline Phosphatase 116 U/L (38-126) 08/24/24 15:23
C-Reactive Protein 89.40 mg/L (0.0-10.00) H 08/24/24 15:23
Most recent labs reviewed.
Micro Results:
08/26/24 07:23 Blood Culture - Preliminary
Blood/Venous No Growth in 48 hours- Final report to follow
08/25/24 14:54 Blood Culture - Preliminary
Blood/Venous No Growth in 48 hours- Final report to follow
08/26/24 11:05 Blood Culture - Preliminary
Blood/Venous No Growth in 24 hours- Final report to follow
08/24/24 16:33 Blood Culture - Final
Blood/Venous Staph aureus MRSA
Gram Stain - Final
08/24/24 15:23 Blood Culture - Final
Blood/Venous Staph aureus MRSA
Gram Stain - Final
08/25/2024; Perip Art LOWER Ext w JENAE; Right ankle-brachial index 1.19, within normal limits. Right toe brachial index 0.9. Minimal arterial plaque without focal significant stenosis. Left ankle brachial index 1.13, left toe brachial index 0.96.
Minimal arterial plaque without focal significant stenosis.
08/24/2024; peripheral vascular ultrasound; No evidence of right lower extremity deep venous thrombosis.
08/24/2024; foot x-ray; Advanced chronic foot deformity, as described, consistent with neuropathic arthrosis, appearing relatively stable compared to prior examination. Mild to moderate soft tissue swelling. No subcutaneous emphysema.
--- NOTE | 2024-08-28 10:27 | W.DS.TRANS ---
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
-
Discharge Instructions:
Discharge Diagnosis/Procedures Impression:
Right lower extremity foot cellulitis
MRSA bacteremia 2/2. No clinical evidence of
sepsis
Charcot's foot
Status post right great toe partial amputation 9
Other conditions:
IDDM
Hypertension.
GERD.
BPH pain
History of CVA
Diet Diabetic, Carb Controlled
Instructions:
Stand-Alone Forms:
Changes to Home Medications: Yes
Discharge Medications:
DC Medications w/original date entered in [employer]
gmokvrh-filxmuxqeydwt-hxvrrpvl 250 mg-250 mg-65 mg tablet (Excedrin Migraine) 2 tab PO TID 06/06/24
atorvastatin 80 mg tablet 80 mg PO DAILY High Cholesterol 06/06/24
benazepril 20 mg tablet 20 mg PO BID Blood Pressure 06/06/24
ezetimibe 10 mg tablet 10 mg PO DAILY High Cholesterol 06/06/24
gabapentin 600 mg tablet 600 mg PO TID Neurological Condition 06/06/24
hydrochlorothiazide 25 mg tablet 25 mg PO DAILY Blood Pressure 06/06/24
icosapent ethyl 1 gram capsule (Vascepa) 2 g PO BID High Cholesterol 06/06/24
pantoprazole 40 mg tablet,delayed release 40 mg PO BID Gastrointestinal Issue 06/06/24
aspirin 81 mg tablet,delayed release 81 mg PO DAILY Blood Clot Prevention/Tx 06/08/24
amlodipine 5 mg tablet 5 mg PO DAILY #30 tabs 08/01/24
Boswellia samantha extract-turmeric root extract 500 mg capsule 2 cap PO TID 08/24/24
acetaminophen 300 mg-codeine 60 mg tablet 1 tab PO TID 08/24/24
cholecalciferol (vitamin D3) 25 mcg (1,000 unit) tablet (Vitamin D3) 25 mcg PO MOTUWETHFR 08/24/24
cyanocobalamin (vitamin B-12) 1,000 mcg tablet 1,000 mcg PO MOTUWETHFR 08/24/24
metformin 500 mg tablet,extended release 24 hr 500 mg PO BID 08/24/24
therapeutic multivitamin 1 tab PO DAILY 08/24/24
DAPTOmycin [Cubicin] 800 mg As Directed mls/hr IV Q24H 08/28/24
insulin aspart U-100 100 unit/mL (3 mL) subcutaneous pen 10 unit (0.1 mL) SC AC #0 mL 08/28/24
insulin glargine 100 unit/mL (3 mL) subcutaneous pen (Lantus Solostar U-100 Insulin) 20 unit (0.2 mL) SC QPM #0 mL 08/28/24
Home Medication Changes
Daptomycin to complete course of therapy for staphylococcal bacteremia through 10/06/2024
Insulin dose increased due to persistent hyperglycemia over this hospitalization.
Pending Results: No
--- NOTE | 2024-08-28 10:41 | VNURNOTE ---
[facility] liaison spoke to patient. He is aware [facility] ending services d/t home IV antibiotics & insurance. He is in agreement and understands plan as discussed by CM. VN intake dept updated.
[2024-08-28] MEDS: NOVOLOG FLEXPEN-LOW RESISTANCE 3 UNITS SC (12:58)
[2024-08-28] MEDS: NOVOLOG FLEXPEN 10 UNITS SC (12:58)
[2024-08-28 12:59] LABS: Glucose - Point of Care 271 mg/dl (70-99)
[2024-08-28 15:00] VITALS: BP 126/75
== END 2024-08-28 16:53 | disposition home health service (06) | DRG 603 ==
LOC: 1 ACUTE 17:04
PROVIDERS: Emergency Medicine; ADMITTING PHYSICIAN Hospitalist; ATTENDING PHYSICIAN Internal Medicine; CONSULT PHYSICIAN Internal Medicine Infectious Disease; EMERGENCY PHYSICIAN Emergency Medicine; FAMILY PHYSICIAN Family Medicine; OTHER PHYSICIAN Surgery Vascular Surgery
DX: L03.115 Cellulitis of right lower limb (principal); R78.81 Bacteremia; B95.62 Methicillin resistant Staphylococcus aureus infection as the cause of diseases classified elsewhere; E11.621 Type 2 diabetes mellitus with foot ulcer; E11.65 Type 2 diabetes mellitus with hyperglycemia; E11.628 Type 2 diabetes mellitus with other skin complications; M14.671 Charcot's joint, right ankle and foot
CPT/HCPCS: 71045; 73630; 73720; 80048; 80053; 80202; 82550; 82962; 83605; 85025; 85027; 85652; 86140; 87040; 87150; 87186; 87205; 93306; 93922; 93925; 93971; 99285; A9575; J0878

== ENCOUNTER → 2024-12-16 06:40 | Outpatient (REF) | payer MEDICARE, BC, SELFPAY | LOC: PAVMRI 06:40 | PROVIDERS: ATTENDING PHYSICIAN Family Medicine | DX: R07.81 Pleurodynia (principal); M54.9 Dorsalgia, unspecified | CPT/HCPCS: 71550 ==

== ENCOUNTER → 2024-12-22 09:53 | Outpatient (REF) | payer MEDICARE, BC, SELFPAY | LOC: RAD 09:53 | PROVIDERS: ATTENDING PHYSICIAN Student in an Organized Health Care Education/Training Program; FAMILY PHYSICIAN Family Medicine; REFERRING PHYSICIAN Internal Medicine Gastroenterology | DX: K31.5 Obstruction of duodenum (principal) | CPT/HCPCS: 74250 ==

== ENCOUNTER 2025-06-16 07:26 | Outpatient (RCR) | payer MEDICARE, BC, SELFPAY | END 2025-06-16 23:59 | disposition home or self-care (01) | LOC: RPT 07:26 | PROVIDERS: ATTENDING PHYSICIAN Family Medicine | DX: M25.572 Pain in left ankle and joints of left foot (principal); Z73.6 Limitation of activities due to disability; M62.81 Muscle weakness (generalized); R26.2 Difficulty in walking, not elsewhere classified; R26.89 Other abnormalities of gait and mobility | CPT/HCPCS: 97110; 97162 ==

== ENCOUNTER 2025-07-02 07:07 | Outpatient (RCR) | payer MEDICARE, BC, SELFPAY | END 2025-07-08 23:59 | disposition home or self-care (01) | LOC: RPT 07:07 | PROVIDERS: ATTENDING PHYSICIAN Family Medicine | DX: M25.572 Pain in left ankle and joints of left foot (principal); Z73.6 Limitation of activities due to disability; M62.81 Muscle weakness (generalized); R26.2 Difficulty in walking, not elsewhere classified; R26.89 Other abnormalities of gait and mobility | CPT/HCPCS: 97110; 97112 ==

== ENCOUNTER 2025-07-06 19:06 | Inpatient (IN) | payer MEDICARE, BC, SELFPAY ==
[2025-07-06 11:37] VITALS: BP 143/96
--- NOTE | 2025-07-06 12:30 | ED.GENMED ---
History of Present Illness
<Duane Gusman Jr., PA-C - Last Filed: 07/06/25 19:50>
General
Chief Complaint: Abdominal Symptoms
Source: patient and spouse
Exam Limitations: none
Time Seen by Provider: 07/06/25 12:12
Nursing documentation reviewed up to this point in time: agreed with
History of Present Illness
History of Present Illness:
75-year-old male presenting to the emergency department today with concerns of lack of bowel movements over the past few days with progressive nausea abdominal bloating and abdominal pain. Had recent endoscopy where he had a duodenal ulcer and
narrowing according to his GI doctor. He was told to see a GI specialist that can fix this but has not been able to make an appointment over the past month.
Past History
<Duane Gusman Jr., PA-C - Last Filed: 07/06/25 19:50>
Past History
ED Past Medical History: HTN, NIDDM and Other (Right toe diabetic foot ulcer)
ED Past Surgical History: Appendectomy and Orthopedic
Social History
Tobacco: Non-smoker
Alcohol: None
Drug: None
Personal:
Living: with family
Employment: Retired
Review of Systems
<Duane Gusman Jr., PA-C - Last Filed: 07/06/25 19:50>
Review of Systems
Allergies reviewed?: Yes
All Other Systems: ROS reviewed and negative except as documented in HPI and ROS
Phy Exam
<HIEU Mckee Jr. Last Filed: 07/06/25 19:50>
Physical Exam
Physical Exam:
GENERAL: Alert , in no apparent distress
EYE: pupils equal and reactive
NECK: Supple, no significant adenopathy.
ENT: o/p clr, mmm.
CARDIAC: Regular rate and rhythm .
LUNGS: Clear breath sounds bilaterally, no acute respiratory distress, no wheezes/rales/rhonchi
ABDOMEN: Vague abdominal tenderness to palpation no focal pain.
NEUROLOGICAL: Alert and oriented, no focal neuro deficits
SKIN: Warm and dry, skin intact.
MUSCULOSKELETAL: No edema, well perfused.
PSYCH: Normal and appropriate interaction.
Course
<Duane Gusman Jr., PA-C - Last Filed: 07/06/25 19:50>
Orders/Labs/Results
Orders:
Orders
07/06/25 11:44
ECG [Electrocardiogram (*1)] Urgent
Reason for Study: Abdominal Pain
EKG- Treatment ONCE
07/06/25 12:28
Ondansetron Injectable [Zofran] 4 mg IV NOW STA
07/06/25 12:29
CT Abd/Pel (IV only)-DH only Urgent
Comment:
Reason For Exam: abd pain, no bm
07/06/25 12:33
Complete Blood Count/With Diff Urgent
Comprehensive Metabolic Panel Urgent
Lactic Acid Urgent
07/06/25 13:44
Ondansetron Injectable [Zofran] 4 mg .ROUTE .STK-MED ONE
07/06/25 13:47
Ondansetron Injectable [Zofran] 4 mg IV NOW STA
07/06/25 14:10
Urinalysis Reflex To Culture Urgent
Date Specimen was Collected: 07/06/25
Time Specimen was Collected: 14:08
07/06/25 17:42
NG Tube [GI tube insertion- Treatment] ONCE
07/06/25 18:28
Admit/Transfer Patient As Directed
Co-Sign Provider:
Level of Care: Inpatient admission
Assign to:: Medical/Surgical
Physician / Group: morenita
Diagnosis: SBO
Reason for Hospitalization: SBO
Expected length of stay greater than two midnights?: Yes
ELOS- Estimated Length of Stay in days: 3
I certify the patient meets the requirements for IP care: Yes
07/06/25 18:29
Code Status As Directed
Resuscitation Status: Full Code
PRN Pain Medication Management As Directed
May give lesser potent ordered pain med per pt: Yes
preference::
Protocol:: Medication orders for pain may be administered in a
manner that supports deferring to patient preference
when the pt is:
- Requesting an ordered lesser potent pain medication.
Least to most potent pain medications are defined
as: acetaminophen < NSAID < tramadol < opioids
(morphine, oxycodone, hydromorphone).
- Requesting a lesser dose of the same medication IF
ORDERED.
- Requesting a less intrusive route of administration
if both routes are prescribed by the provider (PO <
IV).
07/06/25 18:31
0.9% Sodium Chloride 1000 ml [Nss] 1,000 ml IV BOLUS
Abnormal Lab Results
07/06/25
12:33
RBC 4.39 L 10^6/uL
(4.70-6.10)
MPV 10.6 H fL
(7.4-10.4)
Absolute Neuts (auto) 8.0 H 10^3/uL
(1.4-6.5)
Absolute Monos (auto) 0.7 H 10^3/uL
(0.1-0.6)
Neutrophils % 78.9 H %
(42.2-75.2)
Lymphocytes % 12.8 L %
(20.5-51.1)
BUN 25 H mg/dl
(9-20)
Glucose 134 H mg/dl
(70-99)
07/06/25 12:33
07/06/25 12:33
Vital Signs
Initial and Last Documented VS:
Initial Vital Signs
Temp Pulse Resp BP Pulse Ox
98.4 F 71 18 143/96 93
07/06/25 11:37 07/06/25 11:37 07/06/25 11:37 07/06/25 11:37 07/06/25 11:37
Last Documented Vital Signs
Temp Pulse Resp BP Pulse Ox
98.4 F 87 15 159/90 96
07/06/25 11:37 07/06/25 19:15 07/06/25 19:15 07/06/25 18:01 07/06/25 18:01
<Elizabeth Adkins, - Last Filed: 07/06/25 18:36>
Orders/Labs/Results
Orders:
Orders
07/06/25 11:44
ECG [Electrocardiogram (*1)] Urgent
Reason for Study: Abdominal Pain
EKG- Treatment ONCE
07/06/25 12:28
Ondansetron Injectable [Zofran] 4 mg IV NOW STA
07/06/25 12:29
CT Abd/Pel (IV only)-DH only Urgent
Comment:
Reason For Exam: abd pain, no bm
07/06/25 12:33
Complete Blood Count/With Diff Urgent
Comprehensive Metabolic Panel Urgent
Lactic Acid Urgent
07/06/25 13:44
Ondansetron Injectable [Zofran] 4 mg .ROUTE .STK-MED ONE
07/06/25 13:47
Ondansetron Injectable [Zofran] 4 mg IV NOW STA
07/06/25 14:10
Urinalysis Reflex To Culture Urgent
Date Specimen was Collected: 07/06/25
Time Specimen was Collected: 14:08
07/06/25 17:42
NG Tube [GI tube insertion- Treatment] ONCE
07/06/25 18:28
Admit/Transfer Patient As Directed
Co-Sign Provider:
Level of Care: Inpatient admission
Assign to:: Medical/Surgical
Physician / Group: morenita
Diagnosis: SBO
Reason for Hospitalization: SBO
Expected length of stay greater than two midnights?: Yes
ELOS- Estimated Length of Stay in days: 3
I certify the patient meets the requirements for IP care: Yes
07/06/25 18:29
Code Status As Directed
Resuscitation Status: Full Code
PRN Pain Medication Management As Directed
May give lesser potent ordered pain med per pt: Yes
preference::
Protocol:: Medication orders for pain may be administered in a
manner that supports deferring to patient preference
when the pt is:
- Requesting an ordered lesser potent pain medication.
Least to most potent pain medications are defined
as: acetaminophen < NSAID < tramadol < opioids
(morphine, oxycodone, hydromorphone).
- Requesting a lesser dose of the same medication IF
ORDERED.
- Requesting a less intrusive route of administration
if both routes are prescribed by the provider (PO <
IV).
07/06/25 18:31
0.9% Sodium Chloride 1000 ml [Nss] 1,000 ml IV BOLUS
Abnormal Lab Results
07/06/25
12:33
RBC 4.39 L 10^6/uL
(4.70-6.10)
MPV 10.6 H fL
(7.4-10.4)
Absolute Neuts (auto) 8.0 H 10^3/uL
(1.4-6.5)
Absolute Monos (auto) 0.7 H 10^3/uL
(0.1-0.6)
Neutrophils % 78.9 H %
(42.2-75.2)
Lymphocytes % 12.8 L %
(20.5-51.1)
BUN 25 H mg/dl
(9-20)
Glucose 134 H mg/dl
(70-99)
07/06/25 12:33
07/06/25 12:33
Vital Signs
Initial and Last Documented VS:
Initial Vital Signs
Temp Pulse Resp BP Pulse Ox
98.4 F 71 18 143/96 93
07/06/25 11:37 07/06/25 11:37 07/06/25 11:37 07/06/25 11:37 07/06/25 11:37
Last Documented Vital Signs
Temp Pulse Resp BP Pulse Ox
98.4 F 87 15 159/90 96
07/06/25 11:37 07/06/25 19:15 07/06/25 19:15 07/06/25 18:01 07/06/25 18:01
<Daune Gusman Jr., PA-C - Last Filed: 07/06/25 19:50>
MDM/Problems Addressed
MDM/Problems Addressed:
75-year-old male presenting to the emergency department today with concerns of vague diffuse abdominal pain and bloating. Worsening over the past few days. Does have a history of narrowing of the duodenum. Plan for CT scan for further assessment
of possible obstruction. CT scan showing gastric outlet obstruction. Case discussed with GI as well as general surgery. NG tube placed here.
<Duane Gusman Jr., PA-C - Last Filed: 07/06/25 19:50>
*Pulse Oximetry
SaO2: 93
Oxygen Mode of Delivery: Room air
Patient hypoxic: no (96)
*Critical Care Note
Total Time (30-74mins, 75-104mins- exclusive of procedures): Not Applicable
ED Attending Note
<HIEU Mckee Jr. Last Filed: 07/06/25 19:50>
-
Portions of this chart may have been created with voice recognition software.� Occasional wrong word or��sound alike� substitutions may have occurred due to the inherent limitations of voice recognition software.
<Elizabeth Adkins, DO - Last Filed: 07/06/25 18:36>
ED Attending Note
Patient seen and examined by attending physician: Yes
I performed the substantive portion of visit, reviewed & personally made and approve the management plan that is documented in note by myself or JOSE DAVID.: Yes
I performed a history and physical exam of patient and discussed management with resident, I reviewed resident's note and agree with documented findings and plan of care.: Yes
ED Attending Note:
75-year-old male presenting to the emergency department for difficulty tolerating p.o. The past few days, notes increased abdominal bloating, pain, nausea. Notes history of duodenal ulcer and narrowing of the duodenum. His GI doctor. He is due
to see a GI special next week, Dr. Alejo. Denies fever, chest pain, difficulty breathing. Vital signs stable.
On exam, no acute distress, generalized tenderness to the upper abdomen. Patient seen and evaluated by physician hearing and speech assistant with CT obtained prior to my assessment. CT is consistent with gastric outlet obstruction. In discussion with GI and
general surgery, plan for NG tube and consultation with Dr. Alejo, GI specialist. Patient hemodynamically stable at this time
Discharge Plan
Departure
Patient Disposition: Admit
Date of Disposition: 07/06/25
Time of Disposition: 18:21
Admit to: Med/Surg
Admit to doctor: Morenita
Presentation/result/management discussed w/ accepting MD/DO: Hospitalist
Patient with high blood pressure during this ER visit?: No
Condition: Good
Covid-19: Not Applicable
Discharge Problem:
Gastric outlet obstruction
Interventions
Interventions:
*Risk Screen - Suicide Last Done: 07/06/25 11:37
*General Assessment Last Done: 07/06/25 11:37
*Neglect/Abuse Screening Last Done: 07/06/25 14:23
*ED- Fall Risk Assessment Last Done: 07/06/25 14:23
*ED COVID-19 Vaccine History Last Done: 07/06/25 14:23
*ED Influenza Vaccine History Last Done: 07/06/25 14:23
SE-Eqiqwn-Akgcuggewc Assessment Last Done: 07/06/25 12:40
[2025-07-06] MEDS: ZOFRAN 4 MG IV ×2 (12:34→13:47)
[2025-07-06 12:53] LABS: Hematocrit 39.4 % (39.0-52.0); Hemoglobin 13.2 g/dL (13.0-18.0); Mean Corp Hgb Conc. 33.5 g/dL (33.0-37.0); Mean Corpuscular Volume 89.7 fL (80.0-94.0); Nucleated Red Blood Cells % 0 % (-); Platelet Count 223 10^3/uL (130-400); Red Cell Dist. Width 14.1 % (11.5-14.5)
[2025-07-06 13:05] LABS: ALT (SGPT) 23 U/L (0-50); AST (SGOT) 29 U/L (17-59); Albumin 4.5 g/dl (3.5-5.0); Alkaline Phosphatase 89 U/L (38-126); Blood Urea Nitrogen 25 mg/dl (9-20); Calcium 9.5 mg/dl (8.4-10.2); Carbon Dioxide 30 mmol/L (22-30); Chloride 100 mmol/L (98-107); Glucose 134 mg/dl (70-99); Potassium 4.0 mmol/L (3.5-5.1); Sodium 138 mmol/L (135-145); Total Protein 6.6 g/dl (6.3-8.2); eGFR > 60.00
[2025-07-06 14:30] LABS: Urine Character Clear (Clear)
[2025-07-06 18:01] VITALS: BP 159/90
[2025-07-06 18:02] VITALS: BMI 28.7
--- NOTE | 2025-07-06 18:20 | HPS.HSE ---
Addendum entered and electronically signed by Lucille Cutler MD 07/06/25 19:19:
This is an addendum to H&P written by Keesha Wesley on 07/06/2025. Patient seen and examined independently with TRIAL ATTORNEY.
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
for 5 days with abdominal distention pain and nausea.
5 years ago he had gastric obstruction secondary to Mounjaro. He had EGD at that time which apparently showed an obstruction within the duodenum as per the patient.
Vital signs unremarkable.
Labs unremarkable.
CT abdomen pelvis shows patchy areas of increased density within the visualized lower lungs suggesting atelectasis/interstitial fibrosis. There is significant distention of the stomach suggesting gastric outlet obstruction which could be anatomic
or physiologic.
Patient with second incidence of gastric outlet obstruction unclear etiology possibly gastroparesis versus other anatomical obstruction versus other GI etiologies.. N.p.o., NG tube placed, IV fluids, IV Protonix, GI consulted, general surgery
consulted. Hold p.o. medications, insulin sliding scale.
Original Note:
Family Physician
-
Family Physician: Evelyn Briones
Chief Complaint
-
abdominal distentions
History of Present Illness
75-year-old male with past medical history for hypertension, diabetes, right toe diabetic foot ulcer presenting to the emergency department today with concerns of lack of bowel movements for past 5 days. he was noted to have worsening abdominal
distention, nausea. patient stated he had obstruction since he was on Monjoro and his monjaro was stopped. denied vomit. denied fever, chills, chest pain, sob. denied DONAHUE, dizzy or syncope. denied dysuria or hematuria.
CT with Significant distention of the stomach, suggesting gastric outlet obstruction. This could be anatomic or physiologic. As warranted, consider decompression with nasogastric or orogastric tube. Also, a follow-up upper GI series could be
performed, possibly through the tube within the stomach.
Medical History
Past Medical History
Past Medical History: Reports Other
Additional Past Medical History:
BPH, type 2 diabetes, hypertension, GERD, CVA, TMJ, MRSA bacteremia, Charcot's arthropathy
Past Surgical History: Reports Other
Additional Past Surgical History:
Appendectomy, shoulder surgery, sinus surgery, tumor resection right upper thigh, right second toe amputation
Social History
Tobacco: Non-smoker
Alcohol: None
Drug: None
Personal:
Living: With Family
Family History
Family History: Not pertinent
Allergies / Home Medications
Allergies reflects when Allergies were last updated in [employer].
Home Medications with original date entered in [employer]
Allergy/Medication List:
Allergies
Allergy/AdvReac Type Severity Reaction Status Date / Time
clindamycin Allergy Rash Verified 07/06/25 11:40
ibuprofen (From DayQuil Allergy pt. states Verified 07/06/25 11:40
Sinus Pressure/Pain) had stroke
day took it
perfume Allergy sinus Verified 07/06/25 11:40
problems
pseudoephedrine (From Allergy pt. states Verified 07/06/25 11:40
DayQuil Sinus Pressure/Pain) had stroke
day took it
tamsulosin Allergy pt. states Verified 07/06/25 11:40
severe
drop in BP
Home Medications
fsafmvn-nbdgvreuwanat-ncxhgehx 250 mg-250 mg-65 mg tablet (Excedrin Migraine) 2 tab PO TID 06/06/24
atorvastatin 80 mg tablet 80 mg PO DAILY High Cholesterol 06/06/24
benazepril 20 mg tablet 20 mg PO BID Blood Pressure 06/06/24
ezetimibe 10 mg tablet 10 mg PO DAILY High Cholesterol 06/06/24
gabapentin 600 mg tablet 600 mg PO TID Neurological Condition 06/06/24
hydrochlorothiazide 25 mg tablet 25 mg PO DAILY Blood Pressure 06/06/24
icosapent ethyl 1 gram capsule (Vascepa) 2 g PO BID High Cholesterol 06/06/24
pantoprazole 40 mg tablet,delayed release 40 mg PO BID Gastrointestinal Issue 06/06/24
aspirin 81 mg tablet,delayed release 81 mg PO DAILY Blood Clot Prevention/Tx 06/08/24
amlodipine 5 mg tablet 5 mg PO DAILY #30 tabs 08/01/24
Boswellia samantha extract-turmeric root extract 500 mg capsule 2 cap PO TID 08/24/24
acetaminophen 300 mg-codeine 60 mg tablet 1 tab PO TID 08/24/24
cholecalciferol (vitamin D3) 25 mcg (1,000 unit) tablet (Vitamin D3) 25 mcg PO MOTUWETHFR 08/24/24
cyanocobalamin (vitamin B-12) 1,000 mcg tablet 1,000 mcg PO MOTUWETHFR 08/24/24
metformin 500 mg tablet,extended release 24 hr 500 mg PO BID 08/24/24
therapeutic multivitamin 1 tab PO DAILY 08/24/24
DAPTOmycin [Cubicin] 800 mg As Directed mls/hr IV Q24H 08/28/24
insulin aspart U-100 100 unit/mL (3 mL) subcutaneous pen 10 unit (0.1 mL) SC AC #0 mL 08/28/24
insulin glargine 100 unit/mL (3 mL) subcutaneous pen (Lantus Solostar U-100 Insulin) 20 unit (0.2 mL) SC QPM #0 mL 08/28/24
Review of Systems
-
Constitutional: Reports No Symptoms
EENT: Reports No Symptoms
Respiratory: Reports No Symptoms
Cardiac: Reports No Symptoms
Abdomen/GI: Reports Abdominal Pain and Nausea
: Reports No Symptoms
Musculoskeletal: Reports No Symptoms
Skin: Reports No Symptoms
Neurological: Reports No Symptoms
Endocrine: Reports No Symptoms
Hematologic/Lymphatic: Reports No Symptoms
Psych: Reports No Symptoms
Physical Exam
Vital Signs
Vital Signs
Temp Pulse Resp BP Pulse Ox
98.4 F 76 16 159/90 96
07/06/25 11:37 07/06/25 18:01 07/06/25 18:01 07/06/25 18:01 07/06/25 18:01
Physical Exam
General: Well Developed, Well Nourished and No Apparent Distress
HEENT: NormoCephalic, Moist mucous membranes and Atraumatic
Respiratory: Clear
Cardiac: S1/S2 and Regular Rhythm; No Murmur or Rub
GI: Normal Bowel Sounds and Distended; No Organomegaly
Rectal: Deferred by Provider
Musculoskeletal: No Clubbing, No Cyanosis and No Edema
Skin: No Rash
Neuro: AO x 3 and Nonfocal/grossly intact
Psych: Calm
Laboratory Results
-
07/06/25 12:33
07/06/25 12:33
Laboratory Results
Lactic Acid 1.1 mmol/L (0.7-2.0) 07/06/25 12:33
Total Bilirubin 0.7 mg/dl (0.2-1.3) 07/06/25 12:33
AST 29 U/L (17-59) 07/06/25 12:33
ALT 23 U/L (0-50) 07/06/25 12:33
Alkaline Phosphatase 89 U/L (38-126) 07/06/25 12:33
Data Reviewed
-
CT Scan: Report Reviewed by me
Lab Data: Labs Reviewed by me
Impression/Plan
-
#gastric outlet obstruction
-NGT in place
-zofran prn for n/v
-IV PPI
-GI and surgery consulted
- CT abdomen pelvis with impression of patchy areas of increased density within the visualized lower lungs, findings suggesting atelectasis and/or interstitial fibrosis.Significant distention of the stomach, suggesting gastric outlet obstruction.
This could be anatomic or physiologic. As warranted, consider decompression with nasogastric or orogastric tube. Also, a follow-up upper GI series could be performed, possibly through the tube within the stomach.Coronary artery calcifications are
present. Please correlate with symptoms of and risk factors for coronary artery disease, with further workup as clinically appropriate.Bilateral nephroliths.
# History of MRSA bacteremia/right lower extremity cellulitis
Type 2 diabetes/IDDM.
-sliding scale
#HTN
#GERD
#BPH
CVA
DVT ppx
-lovenox
Full COde
resume meds once able to take meds
[2025-07-06] MEDS: NSS 1000 IV ×2 (18:38→20:53)
--- NOTE | 2025-07-06 20:15 | PTCARENOTE ---
Patient received to 3 acute via internal transport from emergency department. Able to ambulate from transport stretcher to bed under own power without assistance. Denies current pain. Endorses discomfort related to naso-gastric tube currently in
place for decompression. Vital signs and intake assessments performed per protocol.
[2025-07-06 20:59] VITALS: BP 126/77; BMI 27.4
[2025-07-06] MEDS: PROTONIX IV 40 MG IV (21:20)
[2025-07-06] MEDS: NSS (PRESERVATIVE FREE) 10 ML IV (21:21)
[2025-07-06 23:00] VITALS: BP 127/84
--- NOTE | 2025-07-07 02:06 | PTCARENOTE ---
While responding to call mckeon at approximately 0200, patient is found laying in bed with dislodged NG tube in his right hand. Patient states he woke up and his NG tube was 'whistling next to his ear', securing device was still attached to his nose.
He also states I don't think I need it anymore.' Approximately 1000ml of dark brown contents are present in the suction canister. House provider informed of dislodgement.
--- NOTE | 2025-07-07 02:32 | W.PN.UPDATE ---
Update Note
Progress Note Update
Patient evaluated after NG tube came out of nare. Patient states he woke up and NG tube was 'whistling' next to him. He does not know how it came out. Canister at bedside filled with dark brown liquid. Pt abdomen remains distended, soft, non-tender
to palpation, bowel sounds x 4. Patient denies complaints of pain, nausea/vomiting. Patient states he has been passing flatus. Patient is refusing to have NG tube replaced at this time. Attempted to educate patient on need for NG tube, he verbalized
understanding and continued to refuse placement of new NG tube. Patient states his throat is too sore and he was coughing too much with the NG tube in place. Orders placed for medication for patient's sore throat, Cepacol and Chloraseptic spray.
Attempt to replace NG tube when patient is agreeable.
[2025-07-07] MEDS: ANESTHETIC LOZENGE 1 LOZENGE PO (02:41)
[2025-07-07 07:15] VITALS: BP 160/87
[2025-07-07] MEDS: PROTONIX IV 40 MG IV ×2 (08:00→20:28)
[2025-07-07] MEDS: NSS (PRESERVATIVE FREE) 10 ML IV ×2 (08:00→20:28)
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
--- NOTE | 2025-07-07 11:35 | W.PN.HOSP.TC ---
Today's Communication/Plan
-
N.p.o. IV fluids
Assessment / Plan
Assessment / Plan
Physical exam:
General: Acutely ill
HEENT: Normocephalic, Atraumatic and Moist Mucous Membranes
Respiratory: Clear to Auscultation; Negative Wheezes, Rales or Rhonchi
Cardiac: Regular Rhythm and S1/S2
GI: Soft, Nontender, hyperdynamic bowel sounds but present, and mildly distended
Musculoskeletal: No Clubbing, No Cyanosis and No Edema
Neuro: Awake, Alert and Oriented, no neurological deficit
Psych: Calm
A/P:
Abdominal pain concerning for gastric outlet obstruction/duodenal obstruction:
N.p.o.
IV fluid
IV PPI
Pain control
NG tube unfortunately came out. Awaiting for surgery and GI evaluation. Appears comfortable at the moment without NG tube.
GI and surgery consult
Chronic pain with narcotic dependence:
On narcotics as needed
Atelectasis:
Incentive spirometry
Concerns for interstitial fibrosis-can follow-up as outpatient
Hypertension:
IV hydralazine as needed
Diabetes mellitus:
Insulin sliding scale
Hemoglobin A1c 6.6
Hyperlipidemia:
Restart when able to take oral
CVA:
Restart medications when able to take oral
DVT prophylaxis:
Lovenox SQ
CODE STATUS:
Full code
Total time spent on today's encounter was 55 minutes which included time spent in counseling the patient/family regarding diagnosis and treatment plan as listed above, goals of care, and symptom management. Case was discussed with nursing staff,
specialists, and care coordinators/case management. All labs and imaging personally reviewed by me. Remainder the time spent in detailed review of previous records, lab data, imaging, and other medical provider documentation.
Anticipated Discharge: 24 - 48 hours
Subjective/Interval History
-
Date of Service: July 07, 2025
Patient still with some abdominal discomfort but overall better. He says that he is passing gas and had a bowel movement. Possible NG tube overnight. No nausea or vomiting now. Afebrile
Objective Data
-
Vital Signs:
Vital Signs
Temp Pulse Resp BP Pulse Ox
99.2 F 78 16 160/87 96
07/07/25 07:15 07/07/25 07:15 07/07/25 07:15 07/07/25 07:15 07/07/25 07:15
I&O
07/06/25 07/07/25 07/08/25
06:59 06:59 06:59
Output Total 600 / 600
Balance -600 / -600
[2025-07-07 11:53] LABS: Glucose - Point of Care 131 mg/dl (70-99)
[2025-07-07 12:47] LABS: Glycohemoglobin (HgbA1c) 6.6 % (4.0-5.6)
[2025-07-07] MEDS: NSS 1000 IV (15:57)
[2025-07-07 16:11] VITALS: BP 142/85
--- NOTE | 2025-07-07 16:13 | CM ---
CM met with pt bedside
Pt resides with his spouse in a 2SH with 8STE, full flight to 2nd floor
Pt is independent with his ADLs, denies use of DMEs and drives+
Has a SPC and WW for use as needed
Has hx with [facility], [facility], [facility] and [facility] for home infusion
PCP- Evelyn Briones
Rx- Johny Painter
Discharge Disposition- anticipate home no needs
[2025-07-07] MEDS: LOVENOX 40 MG SC (18:01)
[2025-07-07 18:10] LABS: Glucose - Point of Care 135 mg/dl (70-99)
[2025-07-07] MEDS: BENADRYL 12.5 MG IV (21:36)
[2025-07-07 23:50] VITALS: BP 147/88
[2025-07-07 23:56] LABS: Glucose - Point of Care 107 mg/dl (70-99)
[2025-07-08] VITALS (9 sets, daily range): BP systolic 128–152; BP diastolic 73–90
--- NOTE | 2025-07-08 02:49 | DOWNTIME ---
There was a [employer] Downtime on 07/08/2025 from 0100 to 07/08/2025 at 0215. Downtime documentation of patient's care, including medication administrations, has been reconciled in the electronic record per guidelines. Refer to the
patient's paper chart under the miscellaneous tab to see printed paper medication records and downtime forms.
[2025-07-08 06:02] LABS: Hematocrit 39.5 % (39.0-52.0); Hemoglobin 13.0 g/dL (13.0-18.0); Mean Corp Hgb Conc. 32.9 g/dL (33.0-37.0); Mean Corpuscular Volume 91.9 fL (80.0-94.0); Nucleated Red Blood Cells % 0 % (-); Platelet Count 211 10^3/uL (130-400); Red Cell Dist. Width 14.4 % (11.5-14.5)
[2025-07-08 06:13] LABS: Glucose - Point of Care 112 mg/dl (70-99)
[2025-07-08 06:25] LABS: Blood Urea Nitrogen 17 mg/dl (9-20); Calcium 8.6 mg/dl (8.4-10.2); Carbon Dioxide 22 mmol/L (22-30); Chloride 109 mmol/L (98-107); Estimated Creatinine Clearance 67 ml/min; Glucose 105 mg/dl (70-99); Potassium 4.4 mmol/L (3.5-5.1); Sodium 134 mmol/L (135-145); eGFR > 60.00
[2025-07-08] MEDS: NSS IV ×2 (07:22→22:40)
[2025-07-08] MEDS: PROTONIX IV 40 MG IV ×2 (08:30→20:24)
[2025-07-08] MEDS: NSS (PRESERVATIVE FREE) 10 ML IV ×2 (08:31→20:24)
--- NOTE | 2025-07-08 08:32 | W.PN.HOSP.TC ---
Today's Communication/Plan
-
Plan for EGD
Assessment / Plan
Assessment / Plan
Physical exam:
General: Acutely ill
HEENT: Normocephalic, Atraumatic and Moist Mucous Membranes
Respiratory: Clear to Auscultation; Negative Wheezes, Rales or Rhonchi
Cardiac: Regular Rhythm and S1/S2
GI: Soft, Nontender, hypodynamic bowel sounds but present, and mildly distended
Musculoskeletal: No Clubbing, No Cyanosis and No Edema
Neuro: Awake, Alert and Oriented, no neurological deficit
Psych: Calm
A/P:
Abdominal pain concerning for gastric outlet obstruction/duodenal obstruction:
N.p.o.
IV fluid
IV PPI
Pain control
NG tube unfortunately came out yesterday and it has remained out.
Repeat surgery had been consulted upon admission but that does not appear to be the case--> awaiting for GI procedure and reevaluation and if he does well clinically no need for surgery input but will reevaluate.
GI consult appreciated--> plan for EGD today
Chronic pain with narcotic dependence:
On narcotics as needed
Atelectasis:
Incentive spirometry
Concerns for interstitial fibrosis-can follow-up as outpatient
Hypertension:
IV hydralazine as needed
Hyponatremia:
mild
trend
Diabetes mellitus:
Insulin sliding scale
Hemoglobin A1c 6.6
Hyperlipidemia:
Restart when able to take oral
CVA:
Restart medications when able to take oral
DVT prophylaxis:
Lovenox SQ
CODE STATUS:
Full code
Total time spent on today's encounter was 55 minutes which included time spent in counseling the patient/family regarding diagnosis and treatment plan as listed above, goals of care, and symptom management. Case was discussed with nursing staff,
specialists, and care coordinators/case management. All labs and imaging personally reviewed by me. Remainder the time spent in detailed review of previous records, lab data, imaging, and other medical provider documentation.
Anticipated Discharge: 24 - 48 hours
Subjective/Interval History
-
Date of Service: July 08, 2025
Patient denies abdominal pain nausea or vomiting. He does have some bloating. He also reports bowel movements.
Objective Data
-
Labs:
Laboratory Results
07/08/25
05:31
WBC 7.2
Hgb 13.0
Hct 39.5
Plt Count 211
Sodium 134 L
Potassium 4.4
Chloride 109 H
Carbon Dioxide 22
BUN 17
Creatinine 0.9
Glucose 105 H
Calcium 8.6
Vital Signs:
Vital Signs
Temp Pulse Resp BP Pulse Ox
98.6 F 73 16 140/78 97
07/08/25 08:02 07/08/25 08:02 07/08/25 08:02 07/08/25 08:02 07/08/25 08:02
I&O
07/07/25 07/08/25 07/09/25
06:59 06:59 06:59
Output Total 600 / 600
Balance -600 / -600
[2025-07-08] MEDS: NSS 1000 IV (11:34)
[2025-07-08 11:40] LABS: Glucose - Point of Care 129 mg/dl (70-99)
--- NOTE | 2025-07-08 13:10 | PTCARENOTE ---
Report provided to GI lab.
--- NOTE | 2025-07-08 15:52 | CM ---
For EEG today .
NPO
IVF continue.
PLAN Home no anticipated needs
--- NOTE | 2025-07-08 17:30 | PTCARENOTE ---
Patient sent down to GI lab. Transported by floor staff.
[2025-07-08 18:54] LABS: Glucose - Point of Care 110 mg/dl (70-99)
[2025-07-08 20:50] LABS: Glucose - Point of Care 184 mg/dl (70-99)
[2025-07-09 03:00] VITALS: BP 155/84
[2025-07-09 06:00] LABS: Hematocrit 40.8 % (39.0-52.0); Hemoglobin 13.5 g/dL (13.0-18.0); Mean Corp Hgb Conc. 33.1 g/dL (33.0-37.0); Mean Corpuscular Volume 90.7 fL (80.0-94.0); Platelet Count 216 10^3/uL (130-400); Red Cell Dist. Width 14.0 % (11.5-14.5)
[2025-07-09 06:23] LABS: Blood Urea Nitrogen 17 mg/dl (9-20); Calcium 8.7 mg/dl (8.4-10.2); Carbon Dioxide 23 mmol/L (22-30); Chloride 108 mmol/L (98-107); Estimated Creatinine Clearance 67 ml/min; Glucose 168 mg/dl (70-99); Potassium 4.3 mmol/L (3.5-5.1); Sodium 138 mmol/L (135-145); eGFR > 60.00
[2025-07-09 07:40] VITALS: BP 150/89
[2025-07-09 07:53] LABS: Glucose - Point of Care 145 mg/dl (70-99)
[2025-07-09] MEDS: NSS (PRESERVATIVE FREE) 10 ML IV (07:53)
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
[2025-07-09] MEDS: PROTONIX IV 40 MG IV (07:54)
[2025-07-09] MEDS: NOVOLOG FLEXPEN-LOW RESISTANCE SC (07:57)
--- NOTE | 2025-07-09 11:02 | W.PN.HOSP.TC ---
Today's Communication/Plan
-
Advance diet. Discharge planning
Assessment / Plan
Assessment / Plan
Physical exam:
General: No acute distress
HEENT: Normocephalic, Atraumatic and Moist Mucous Membranes
Respiratory: Clear to Auscultation; Negative Wheezes, Rales or Rhonchi
Cardiac: Regular Rhythm and S1/S2
GI: Soft, Nontender, normal bowel sounds, no distended
Musculoskeletal: No Clubbing, No Cyanosis and No Edema
Neuro: Awake, Alert and Oriented, no neurological deficit
Psych: Calm
A/P:
Abdominal pain concerning for gastric outlet obstruction/duodenal obstruction:
Status post EGD yesterday and dilation of duodenum and obstruction resolved
GI recommended advance diet as tolerated and they are signing off and he can be discharged from their standpoint
Will advance diet and plan to discharge today if tolerating
Chronic pain with narcotic dependence:
On narcotics as needed
Atelectasis:
Incentive spirometry
Concerns for interstitial fibrosis-can follow-up as outpatient
Hypertension:
IV hydralazine as needed and can go back to his oral medications
Hyponatremia:
mild
trend
Diabetes mellitus:
Insulin sliding scale and can go back to his diabetic medication
Hemoglobin A1c 6.6
Hyperlipidemia:
Restart upon discharge today
CVA:
Restart his home regimen upon discharge today
DVT prophylaxis:
Lovenox SQ
CODE STATUS:
Full code
Anticipated Discharge: Today
Subjective/Interval History
-
Date of Service: July 09, 2025
Patient denies abdominal pain nausea vomiting. Tolerating liquid diet. Afebrile. Wants to go home today
Objective Data
-
Labs:
Laboratory Results
07/09/25 07/09/25
05:32 05:33
WBC 7.0
Hgb 13.5
Hct 40.8
Plt Count 216
Sodium 138
Potassium 4.3
Chloride 108 H
Carbon Dioxide 23
BUN 17
Creatinine 0.9
Glucose 168 H
Calcium 8.7
Vital Signs:
Vital Signs
Temp Pulse Resp BP Pulse Ox
97.8 F 82 16 150/89 97
07/09/25 07:40 07/09/25 07:40 07/09/25 07:40 07/09/25 07:40 07/09/25 07:40
I&O
07/08/25 07/09/25 07/10/25
06:59 06:59 06:59
Intake Total 50 / 50
Balance 50 / 50
--- NOTE | 2025-07-09 11:05 | W.DCSUMMARY ---
Discharge Summary
Discharge Data
Date of Admission: 07/06/25
Date of Discharge: 07/09/25
Total time spent discharging patient (in min): 35
-
Pending Results: No
Hospital Course
Patient 75 years old male history hypertension, diabetes mellitus, CVA, presented to the hospital with abdominal pain nausea and vomiting. Patient had a CT scan showing concerns for gastric outlet obstruction. GI was consulted. He was kept
n.p.o., IV fluids, and NG tube was placed. At some point NG tube was pulled out unintentionally and patient did not want to be placed back and he was monitored clinically. 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
dilation. Patient did well postprocedure and was able to tolerate advancing his diet. He has been kept on PPI and will continue his home dosing. He is very eager to go home today. GI also cleared him discharge. He will be discharged in
relatively stable condition today and follow-up with GI as outpatient.
Discharge duration: 35 minutes
Discharge Plan
-
Patient Disposition: Home (Routine Discharge)
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
Diet: Low Residue
Activity: As tolerated
Blood Work: Please PCP to order CBC, BMP within 1 week
Referrals:
Evelyn Briones MD [Family Provider] - in less than 1 week
Dick Alejo MD [Active, Gastroenterology] - in one to two weeks
Prescriptions:
Continued
atorvastatin 80 mg Tablet
80 mg PO DAILY
gabapentin 600 mg Tablet
600 mg PO TID
pantoprazole 40 mg Tablet,Delayed Release (Dr/Ec)
40 mg PO BID
benazepril 20 mg Tablet
20 mg PO BID
hydrochlorothiazide 25 mg Tablet
25 mg PO DAILY
Patient Comments:
no pharmacy records
vkhnaaz-ttsttvliccivc-ufsjkujt [Excedrin Migraine] 250-250-65 mg Tablet
2 tab PO TID
ezetimibe 10 mg Tablet
10 mg PO DAILY
icosapent ethyl [Vascepa] 1 gram Capsule
2 g PO BID
aspirin 81 mg Tablet,Delayed Release (Dr/Ec)
81 mg PO DAILY
amlodipine 5 mg Tablet
5 mg PO DAILY Qty: 30 0RF
cyanocobalamin (vitamin B-12) 1,000 mcg Tablet
1,000 mcg PO MOTUWETHFR
therapeutic multivitamin Tablet
1 tab PO DAILY
acetaminophen-codeine 300-60 mg tablet
1 tab PO TID
metformin 500 mg Tablet Extended Release 24 Hr
500 mg PO BID
cholecalciferol (vitamin D3) [Vitamin D3] 25 mcg (1,000 unit) Tablet
25 mcg PO MOTUWETHFR
Boswellia samantha-turmeric xt 500 mg Capsule
2 cap PO TID
insulin aspart U-100 100 unit/mL (3 mL) insulin pen
10 unit SC AC Qty: 0 0RF
insulin glargine [Lantus Solostar U-100 Insulin] 100 unit/mL (3 mL) insulin pen
20 unit SC QPM Qty: 0 0RF
Discharge Orders:
Discharge Patient (As Directed); Ordered 07/09/25
Ordered By: Jose Luis Zimmer
Discharge Date and Time
Discharge Date/Time: 07/09/25 16:31
Print Language: FRISIAN
[2025-07-09] MEDS: NSS IV (11:16)
--- NOTE | 2025-07-09 12:24 | CM ---
MD entered order for discharge.
Spoke with patient in room he said he was ready for discharge,
Tolerated meals.
His Katja will drive him home.
IMM reviewed with him he signed forme on chart.
Offered VN he declined need.
PLAN Home no needs
[2025-07-09 12:38] LABS: Glucose - Point of Care 158 mg/dl (70-99)
[2025-07-09] MEDS: NOVOLOG FLEXPEN-LOW RESISTANCE 1 UNITS SC (12:39)
[2025-07-09 15:17] VITALS: BP 137/80
[2025-07-09 15:33] VITALS: BMI 27.4
== END 2025-07-09 16:31 | disposition home or self-care (01) | DRG 381 ==
LOC: 3 WEST ACU 19:06
PROVIDERS: Internal Medicine Gastroenterology; Physician Assistant; ADMITTING PHYSICIAN Hospitalist; ATTENDING PHYSICIAN Hospitalist; EMERGENCY PHYSICIAN Student in an Organized Health Care Education/Training Program; FAMILY PHYSICIAN Family Medicine; OTHER PHYSICIAN Internal Medicine
PROC: 0D798ZZ Dilation of Duodenum, Via Natural or Artificial Opening Endoscopic (ICD-10-PCS; 2025-07-08)
DX: K31.5 Obstruction of duodenum (principal); E87.1 Hypo-osmolality and hyponatremia; F11.20 Opioid dependence, uncomplicated; J98.11 Atelectasis; K31.1 Adult hypertrophic pyloric stenosis; I10 Essential (primary) hypertension; K21.00 Gastro-esophageal reflux disease with esophagitis, without bleeding; E11.621 Type 2 diabetes mellitus with foot ulcer; E78.00 Pure hypercholesterolemia, unspecified; G89.29 Other chronic pain; I25.10 Atherosclerotic heart disease of native coronary artery without angina pectoris; E11.610 Type 2 diabetes mellitus with diabetic neuropathic arthropathy; Z79.4 Long term (current) use of insulin; Z79.82 Long term (current) use of aspirin; Z79.899 Other long term (current) drug therapy; Z86.14 Personal history of Methicillin resistant Staphylococcus aureus infection; Z86.73 Personal history of transient ischemic attack (TIA), and cerebral infarction without residual deficits; Z87.891 Personal history of nicotine dependence
CPT/HCPCS: 74177; 80048; 80053; 81003; 82962; 83036; 83605; 85025; 85027; 93005; 96374; 96376; 99285; C1726; Q9967

== ENCOUNTER 2025-07-22 06:57 | Outpatient (RCR) | payer MEDICARE, BC, SELFPAY | END 2025-07-22 23:59 | disposition home or self-care (01) | LOC: RPT 06:57 | PROVIDERS: ATTENDING PHYSICIAN Family Medicine | DX: M25.572 Pain in left ankle and joints of left foot (principal); Z73.6 Limitation of activities due to disability; M62.81 Muscle weakness (generalized); R26.2 Difficulty in walking, not elsewhere classified; R26.89 Other abnormalities of gait and mobility | CPT/HCPCS: 97110; 97140 ==

== ENCOUNTER 2025-07-28 06:12 | Day surgery (SDC) | payer MEDICARE, BC, SELFPAY ==
[2025-07-28 07:43] LABS: Glucose - Point of Care 100 mg/dl (70-99)
[2025-07-28 07:54] VITALS: BMI 29.0
[2025-07-28 07:55] VITALS: BP 156/91
[2025-07-28 09:20] LABS: Glucose - Point of Care 133 mg/dl (70-99)
== END 2025-07-28 09:45 | disposition home or self-care (01) ==
LOC: GI 06:12
PROVIDERS: ATTENDING PHYSICIAN Internal Medicine Gastroenterology
DX: K31.5 Obstruction of duodenum (principal); K31.89 Other diseases of stomach and duodenum; R89.7 Abnormal histological findings in specimens from other organs, systems and tissues
CPT/HCPCS: 43245; 43236; 43239; 82962; 88305; C1726

== ENCOUNTER → 2025-08-07 06:57 | Outpatient (REF) | payer MEDICARE, BC, SELFPAY | LOC: RAD 06:57 | PROVIDERS: ATTENDING PHYSICIAN Podiatrist; FAMILY PHYSICIAN Family Medicine | DX: I70.219 Atherosclerosis of native arteries of extremities with intermittent claudication, unspecified extremity (principal) | CPT/HCPCS: 93922 ==